=== PATIENT | female | born 1960 | race Caucasian/White ===

== ENCOUNTER → 2016-05-25 | Outpatient (REF) | payer BC ==
[~2016-05-25] MED LIST: ATOR1TAB21 PO; BUSP15TA47 PO; BUSP30TA PO; IBUP-1114 PO; IPRA2IN NEB; LEVA12INH NEB; LEVO88TA3 PO; PERC5TAB6 PO; PRED20TAB PO; PRIL20CA9 PO; SERT50TA PO; TRAZ100T4 PO; [UNRECOGNIZED DRUG - CODE] PO
== END ==
LOC: M LAB REF 21:00
PROVIDERS: ATTEND Nurse Practitioner Family
DX: N76.0 Acute vaginitis (principal)

== ENCOUNTER 2016-06-04 08:57 | Emergency (ER) | payer BC ==
[~2016-06-04] VITALS: Ht 157.5 cm; Wt 85.7 kg
[2016-06-04] MEDS ORDERED: OMEP10CASR PO (09:09)
[2016-06-04] MEDS ORDERED: CEPH500C (09:09)
[2016-06-04] MEDS ORDERED: SERT-138 (09:09)
[2016-06-04] MEDS ORDERED: BUSP10TA (09:09)
[2016-06-04] MEDS ORDERED: ALBU17IN (09:09)
[2016-06-04] MEDS ORDERED: NS 1,000 ML IV ONE (10:00)
[2016-06-04] MEDS ORDERED: ONDANSETRON 4MG/2ML VIAL (J2405) IV ONE ×2 (10:00→11:15)
[2016-06-04] MEDS ORDERED: KETOROLAC 30 MG/ML VIAL (J1885) IV ONE (10:00)
[2016-06-04 10:11] LABS: CALCIUM OXALATE CRYSTALS SMALL
[2016-06-04 10:34] LABS: MEAN CORPUSCULAR HEMOGLOBIN 31.2 pg (27.0-33.0); MEAN CORPUSCULAR HGB CONC 33.3 g/dl (32.0-36.5); MEAN CORPUSCULAR VOLUME 93.6 fl (80.0-96.0); RED CELL DISTRIBUTION WIDTH 12.6 % (11.5-14.5)
[2016-06-04 10:58] LABS: ALBUMIN 3.8 GM/DL (3.2-5.2); ALBUMIN/GLOBULIN RATIO 1.15 (1.00-1.93); ALKALINE PHOSPHATASE 87 U/L (45-117); ALT/SGPT 22 U/L (12-78); ANION GAP 6 MEQ/L (8-16); AST/SGOT 16 U/L (15-37); BILIRUBIN,TOTAL 0.2 MG/DL (0.2-1.0); BLOOD UREA NITROGEN 9 MG/DL (7-18); CALCIUM LEVEL 8.7 MG/DL (8.5-10.1); CARBON DIOXIDE LEVEL 28 MEQ/L (21-32); CHLORIDE LEVEL 109 MEQ/L (98-107); CREATININE FOR GFR 0.82 MG/DL (0.55-1.02); GLOMERULAR FILTRATION RATE > 60.0 (>51); GLUCOSE, FASTING 97 MG/DL (70-105); SODIUM LEVEL 143 MEQ/L (136-145); TOTAL PROTEIN 7.1 GM/DL (6.4-8.2)
--- NOTE | 2016-06-04 11:03 | REP ---
CT ABDOMEN AND PELVIS WITHOUT CONTRAST: CT of the abdomen and pelvis performed without oral or IV contrast. Sagittal and coronal reconstruction images are performed. Mild chronic fibrotic changes are seen in the lung bases. The liver, spleen, adrenals, pancreas, and kidneys appear grossly unremarkable. There is no hydroureteronephrosis and no evidence of nephrolithiasis. The patient has had a cholecystectomy. The abdominal aorta is normal in caliber with mild atherosclerotic calcification. There is no adenopathy. There is no free air or free fluid. There is mild central hazy opacity in the mesentery most consistent with mild sclerosis mesenteritis. There is no bowel thickening. There is no evidence of appendicitis. There is no pelvic mass. 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 No appendicitis. No nephrolithiasis or hydronephrosis. Status post cholecystectomy. No free air or free fluid. Signed by Sigifredo Currie MD 06/04/2016 04:37 P
[2016-06-04] MEDS ORDERED: MORPHINE 4 MG/ML 1ML SYRINGE IV ONE (11:15)
[2016-06-04] MEDS ORDERED: DICYCLOMINE 10 MG CAP PO ONE (12:30)
[2016-06-04] MEDS ORDERED: PERCOCET 5MG/325MG TAB PO ONE (12:30)
[2016-06-04] MEDS ORDERED: ZOFR4TAB3 PO (12:37)
[2016-06-04] MEDS ORDERED: PERC5TAB6 PO (12:37)
[2016-06-04] MEDS ORDERED: BENT10CA PO (12:38)
[2016-06-04] MEDS ORDERED: ONDANSETRON 4 MG ORAL DISINTEGRATING TAB (S0181) PO ONE (12:45)
[2016-06-04 13:00] VITALS: BP 133/79
== END 2016-06-04 13:07 | disposition home or self-care (01) ==
LOC: M ED 09:58
DX: R10.84 Generalized abdominal pain (principal); K65.4 Sclerosing mesenteritis; R11.2 Nausea with vomiting, unspecified; R10.2 Pelvic and perineal pain; F17.200 Nicotine dependence, unspecified, uncomplicated; Z79.899 Other long term (current) drug therapy
CPT/HCPCS: 36415; 74176; 80053; 81001; 83690; 85027; 87086; 96374; 96375; 96376; 99283; J1885; J2405

== ENCOUNTER → 2017-04-10 | Outpatient (CLI) | payer BC ==
[~2017-04-10] MED LIST changes: -ATOR1TAB21 PO; -BUSP15TA47 PO; -BUSP30TA PO; +CONRAY-43 43% 50ML VIAL (Q9960) As Ordered; -IBUP-1114 PO; -IPRA2IN NEB; -LEVA12INH NEB; -LEVO88TA3 PO; -PERC5TAB6 PO; -PRED20TAB PO; -PRIL20CA9 PO; +PROHANCE 279.3MG/ML 5ML VIAL (A9576) As Ordered; -SERT50TA PO; -TRAZ100T4 PO; -[UNRECOGNIZED DRUG - CODE] PO
== END ==
LOC: M RADPRO 08:06
DX: M25.551 Pain in right hip (principal); M16.10 Unilateral primary osteoarthritis, unspecified hip; M94.251 Chondromalacia, right hip; M25.451 Effusion, right hip
CPT/HCPCS: 27093

== ENCOUNTER → 2017-05-08 | Outpatient (CLI) | payer BC ==
[2017-05-08 12:42] LABS: HEMATOCRIT 39.2 % (36.0-47.0); HEMOGLOBIN 12.8 g/dl (12.0-16.0); MEAN CORPUSCULAR HEMOGLOBIN 29.6 pg (27.0-33.0); MEAN CORPUSCULAR HGB CONC 32.7 g/dl (32.0-36.5); MEAN CORPUSCULAR VOLUME 90.7 fl (80.0-96.0); PLATELET COUNT, AUTOMATED 358 10^3/uL (150-450); RED BLOOD COUNT 4.32 10^6/uL (4.00-5.40); RED CELL DISTRIBUTION WIDTH 12.4 % (11.5-14.5); WHITE BLOOD COUNT 5.9 10^3/uL (4.0-10.0)
[2017-05-08 13:08] LABS: TOTAL 25(OH) VITAMIN D 89.2 NG/ML (30.0-100.0)
[2017-05-08 14:06] LABS: ALBUMIN 3.9 GM/DL (3.2-5.2); ALBUMIN/GLOBULIN RATIO 1.18 (1.00-1.93); ALKALINE PHOSPHATASE 110 U/L (45-117); ALT/SGPT 20 U/L (12-78); ANION GAP 8 MEQ/L (8-16); AST/SGOT 11 U/L (7-37); BILIRUBIN,TOTAL 0.3 MG/DL (0.2-1.0); BLOOD UREA NITROGEN 7 MG/DL (7-18); CALCIUM LEVEL 9.2 MG/DL (8.5-10.1); CARBON DIOXIDE LEVEL 26 MEQ/L (21-32); CHLORIDE LEVEL 109 MEQ/L (98-107); CREATININE FOR GFR 0.85 MG/DL (0.55-1.30); GLOMERULAR FILTRATION RATE > 60.0 (>51); GLUCOSE, FASTING 73 MG/DL (70-100); POTASSIUM SERUM 4.1 MEQ/L (3.5-5.1); SODIUM LEVEL 143 MEQ/L (136-145); TOTAL PROTEIN 7.2 GM/DL (6.4-8.2)
== END ==
LOC: M LAB 12:07
DX: F33.9 Major depressive disorder, recurrent, unspecified (principal)
CPT/HCPCS: 80053

== ENCOUNTER → 2018-01-14 | Outpatient (CLI) | payer BC | LOC: M RAD 15:02 | DX: S86.112D Strain of other muscle(s) and tendon(s) of posterior muscle group at lower leg level, left leg, subsequent encounter (principal); X58.XXXD Exposure to other specified factors, subsequent encounter; Y92.9 Unspecified place or not applicable; M71.22 Synovial cyst of popliteal space [Baker], left knee | CPT/HCPCS: 73718 ==

== ENCOUNTER → 2018-07-17 | Outpatient (REF) | payer BC ==
[~2018-07-17] MED LIST changes: +ALBU17IN; +ATOR1TAB21 PO; +BENT10CA PO; +BUSP10TA; +BUSP15TA47 PO; +BUSP30TA PO; +CEPH500C; -CONRAY-43 43% 50ML VIAL (Q9960) As Ordered; +IBUP-1114 PO; +IPRA2IN NEB; +LEVA12INH NEB; +LEVO88TA3 PO; +OMEP10CASR PO; +PERC5TAB12 PO; +PRED20TAB PO; +PRIL20CA9 PO; -PROHANCE 279.3MG/ML 5ML VIAL (A9576) As Ordered; +SERT-138; +SERT-141 PO; +TRAZ-163 PO; +ZOFR4TAB14 PO; +[UNRECOGNIZED DRUG - CODE] PO
[2018-07-17 16:45] LABS: HEMATOCRIT 40.6 % (36.0-47.0); HEMOGLOBIN 13.2 g/dl (12.0-15.5); MEAN CORPUSCULAR HGB CONC 32.5 g/dl (32.0-36.5); MEAN CORPUSCULAR VOLUME 98.5 fl (80.0-96.0); PLATELET COUNT, AUTOMATED 292 10^3/uL (150-450); RED BLOOD COUNT 4.12 10^6/uL (4.00-5.40); WHITE BLOOD COUNT 5.1 10^3/uL (4.0-10.0)
[2018-07-17 17:42] LABS: ALBUMIN 3.7 GM/DL (3.2-5.2); BILIRUBIN,TOTAL 0.4 MG/DL (0.2-1.0); CALCIUM LEVEL 8.7 MG/DL (8.5-10.1); CHOLESTEROL RISK RATIO 4.952 (<5); CREATININE FOR GFR 1.28 MG/DL (0.55-1.30); GLOMERULAR FILTRATION RATE 45.8 (>51); POTASSIUM SERUM 4.4 MEQ/L (3.5-5.1); TOTAL PROTEIN 7.5 GM/DL (6.4-8.2)
[2018-07-17 18:38] LABS: HEMOGLOBIN A1c 5.6 %
== END ==
LOC: M LABDRAW1 16:19
PROVIDERS: ATTEND Nurse Practitioner Psychiatric/Mental Health
DX: Z79.899 Other long term (current) drug therapy (principal)

== ENCOUNTER → 2018-10-01 | Outpatient (REF) | payer BC ==
[2018-10-01 16:08] LABS: HEMATOCRIT 39.5 % (36.0-47.0); HEMOGLOBIN 12.9 g/dl (12.0-15.5); MEAN CORPUSCULAR HEMOGLOBIN 31.3 pg (27.0-33.0); MEAN CORPUSCULAR HGB CONC 32.7 g/dl (32.0-36.5); MEAN CORPUSCULAR VOLUME 95.9 fl (80.0-96.0); PLATELET COUNT, AUTOMATED 291 10^3/uL (150-450); RED BLOOD COUNT 4.12 10^6/uL (4.00-5.40); WHITE BLOOD COUNT 4.7 10^3/uL (4.0-10.0)
[2018-10-01 16:09] LABS: C REACTIVE PROTEIN QUANTITATIV 0.38 MG/DL (0.00-0.30); URIC ACID 5.8 MG/DL (2.6-6.0)
[2018-10-01 19:52] LABS: ERYTHROCYTE SEDIMENTATION RATE 11 mm/hr (0-30)
[2018-10-09 00:12] LABS: DEOXYCORTICOSTERONE LEVEL 2.4 ng/dL (.); HLA-B27 Negative (.); Lyme Disease IgG/IgM Antibodie <0.91 ISR (0.00-0.90); Lyme Disease IgM Ab Quantitati <0.80 index (0.00-0.79)
== END ==
LOC: M LABDRAW1 13:31
PROVIDERS: ATTEND Physician Assistant
DX: M47.817 Spondylosis without myelopathy or radiculopathy, lumbosacral region (principal)

== ENCOUNTER → 2018-12-04 | Outpatient (REF) | payer BC ==
[2018-12-04 17:19] LABS: SOURCE, BODY FLUID LFT KNEE; SYNOVIAL FLUID COLOR ORANGE (YELLOW)
[2018-12-04 17:20] LABS: CRYSTALS, BODY FLUID NONE SEEN (NONE SEEN); SOURCE, BODY FLUID CRYSTALS LFT KNEE
[2018-12-04 17:48] LABS: MUCIN CLOT TEST 4+ (4+)
[2018-12-04 17:55] LABS: SOURCE, BODY FLUID GLUCOSE LFT KNEE; SOURCE, BODY FLUID URIC ACID LFT KNEE; URIC ACID, BODY FLUID 3.9 MG/DL (NOT ESTABLISHED)
[2018-12-08 10:41] LABS: BODY FLUID RHEUMATOID SCREEN NEGATIVE (NEGATIVE)
== END ==
LOC: M LAB REF 15:16
PROVIDERS: ATTEND Physician Assistant
DX: M25.462 Effusion, left knee (principal)

== ENCOUNTER → 2019-04-26 | Outpatient (CLI) | payer BC ==
[~2019-04-26] MED LIST changes: -TRAZ-163 PO; +TRAZ-257 PO
--- NOTE | 2019-04-26 15:05 | REP ---
PA and lateral chest: Comparison is 03/23/2015. The lung leonard are clear. The cardiac size is normal. The lorraine, mediastinum, and skeletal structures are unremarkable. Impression: Negative PA and lateral chest. There is no interval change. Electronically Signed by Sigifredo Mejía MD 04/26/2019 02:57 P
--- NOTE | 2019-04-26 15:28 | REP ---
Right knee five views: There are no comparisons. There is medial compartment osteoarthritis. The lateral patellofemoral compartments are unremarkable. Mineralization is normal. There is no effusion. There are no calcifications. Impression: Medial compartment osteoarthritis. Left knee five views: There is medial compartment osteoarthritis. The lateral patellofemoral compartments are unremarkable. Mineralization is normal. There is no effusion. There are no calcifications. Impression: Medial compartment osteoarthritis. Electronically Signed by Sigifredo Mejía MD 04/26/2019 03:20 P
== END ==
LOC: M RAD 13:04
PROVIDERS: ATTEND Internal Medicine
DX: M17.0 Bilateral primary osteoarthritis of knee (principal); R59.0 Localized enlarged lymph nodes

== ENCOUNTER → 2019-04-26 | Outpatient (REF) | payer BC ==
[2019-04-26 17:48] LABS: C REACTIVE PROTEIN QUANTITATIV 0.37 MG/DL (0.00-0.30); RHEUMATOID FACTOR QUANT < 10.0 IU/ML (<15.0); URIC ACID 5.3 MG/DL (2.6-6.0)
== END ==
LOC: M SFHCRHEU 12:23
PROVIDERS: ATTEND Internal Medicine
DX: M25.50 Pain in unspecified joint (principal)

== ENCOUNTER → 2020-09-02 | Outpatient (CLI) | payer BC ==
[~2020-09-02] MED LIST changes: +BUDE10.2; +BUSP30TA; +FLUO40CA; +FLUO60TA6; +FLUT1BLS5; +LEVO75TA4; +OMEP10CA78
== END ==
LOC: M LABSMTC 11:04
PROVIDERS: ATTEND Anesthesiology
DX: Z20.828 Contact with and (suspected) exposure to other viral communicable diseases (principal); Z11.59 Encounter for screening for other viral diseases

== ENCOUNTER 2020-09-07 08:56 | Day surgery (SDC) | payer BC ==
[~2020-09-07] VITALS: Ht 152.4 cm; Wt 86.2 kg
--- NOTE | 2020-09-07 10:46 | ROOR ---
Patient Name: Paige Martinez Procedure Date: 09/07/2020 10:22 AM Date of : 1960 Age: 60 Room: [facility] Gender: Female Note Status: Finalized Procedure: Colonoscopy Indications: High risk colon cancer surveillance: Personal history of colonic polyps Providers: Gilson Guallpa MD Referring MD: Janneth MCCRARY NP Requesting Provider: Medicines: Monitored Anesthesia Care Complications: No immediate complications. Procedure: Pre-Anesthesia Assessment: - The heart rate, respiratory rate, oxygen saturations, blood pressure, adequacy of pulmonary ventilation, and response to care were monitored throughout the procedure. The Colonoscope was introduced through the anus and advanced to the terminal ileum, with identification of the appendiceal orifice and IC valve. The colonoscopy was performed without difficulty. The patient tolerated the procedure well. The quality of the bowel preparation was good. Findings: The perianal and digital rectal examinations were normal. Small Internal Hemorrhoids. The entire examined colon appeared normal on direct and retroflexion views. Impression: - Small Internal Hemorrhoids. - The entire examined colon is normal on direct and retroflexion views. - No specimens collected. Recommendation: - Repeat colonoscopy in 5 years for surveillance. Procedure Code(s): --- Professional --- 37521, Colonoscopy, flexible; diagnostic, including collection of specimen(s) by brushing or washing, when performed (separate procedure) Diagnosis Code(s): --- Professional --- Z86.010, Personal history of colonic polyps CPT copyright 2019 [employer]. All rights reserved. The codes documented in this report are preliminary and upon outpatient coder review may be revised to meet current compliance requirements. Gilson Guallpa MD Gilson Guallpa MD 09/07/2020 10:46:17 AM Electronically signed by Gilson Guallpa MD Number of Addenda: 0 Note Initiated On: 09/07/2020 10:22 AM Estimated Blood Loss: Estimated blood loss: none.
[2020-09-07] MEDS ORDERED: LIDOCAINE 2% 100MG/5ML SDV (FOR ANES.) As Ordered ONE (10:55)
[2020-09-07] MEDS ORDERED: propofoL 200 MG/20 ML VIAL As Ordered ONE (10:55)
[2020-09-07 11:05] VITALS: BP 129/78
== END 2020-09-07 11:12 | disposition home or self-care (01) ==
LOC: M OPP 08:56
PROVIDERS: ATTEND Internal Medicine Gastroenterology
DX: Z12.11 Encounter for screening for malignant neoplasm of colon (principal); Z86.010 Personal history of colon polyps; K64.8 Other hemorrhoids; Z79.82 Long term (current) use of aspirin; Z79.899 Other long term (current) drug therapy; Z91.030 Bee allergy status; Z80.41 Family history of malignant neoplasm of ovary; Z80.1 Family history of malignant neoplasm of trachea, bronchus and lung; Z80.3 Family history of malignant neoplasm of breast; Z80.8 Family history of malignant neoplasm of other organs or systems; Z87.891 Personal history of nicotine dependence

== ENCOUNTER 2020-12-26 16:14 | Emergency (ER) | payer BC ==
[~2020-12-26] VITALS: Ht 157.5 cm; Wt 88.3 kg
--- OUTSIDE RECORDS SUMMARY | 2020-12-26 16:22 | CCD ---
Author Author [facility] Organization [facility] Address Unknown Phone Unavailable Care Team Providers Care Vice President Risk Management Name Role Phone Janneth eLster Unavailable PROBLEMS Type Condition ICD9-CM Code [id number] Code Onset Dates Condition S tatus W/U Status Risk SNOMED Code Notes Problem Hyperlipidemia E78.5 Active confirmed 09598 004 Problem Hypothyroid E03.9 Active confirmed 21193787 Problem DDD (degenerative disc disease), lumbosacral M51.3 7 Active confirmed 55139112 Problem Vitamin D deficiency E55.9 Active confirmed 23815020 Problem DOMENIC (obstructive sleep apnea) G47.33 Active confirm ed 63891395 Problem Other chronic pain G89.29 Active confirmed 8 3407347 Problem Chronic obstructive pulmonary disease, unspecified COPD ty pe J44.9 Active confirmed 42022616 Problem Arthritis M19.90 Active confirmed 2459164 Problem Female bladder prolapse N81.10 Active confirmed 146151076 Problem BMI 37.0-37.9, adult Z68.37 Active confirmed 276301466 Problem Adjustment disorder with depressed mood F43.21 Active confirmed 06006849 Problem Acute right-sided low back pain with right-sided sciatica M54.41 Active confirmed 658165439 Problem Atrophic vaginitis N95.2 Active confirmed 5 6447386 Problem Sciatica, unspecified laterality M54.30 Active conf irmed 42516530 Problem Moderate episode of recurrent major depressive disorder F33.1 Active confirmed 340561132 Problem Smoking greater than 30 pack years F17.210 Activ e confirmed 71621521 Problem Obesity (BMI 30-39.9) E66.9 Active confirmed 804402456 ALLERGIES Allergen (clinical drug ingredient) Drug/Non Drug Allergy do cumented on EMR Reaction Allergy Type Onset Date Status hornets swelling Non Drug Allergy Active ENCOUNTERS from 1960 to 2020-12-04 Encounter Location Date Provider Diagnosis [address] [address] Dec, Janneth Lester IMMUNIZATIONS Vaccine Route Administration Date Status INFLUENZA 3 YRS AND OLDER Preservative free Unknown Dec 13, 2017 Administered Pneumococcal Vaccine PNEUMO 23 IM Intramuscular Dec 02, 2014 Administered TDAP 7yrs + Vaccine - Boostrix IM Intramuscular Oct 18, 2019 Administered Influenza preservative free IM Intramuscular Jan 06, 2020 Adm inistered Influenza preservative free Unknown Dec 21, 2018 Admi nistered Pneumococcal Prevnar 13 IM Intramuscular Jan 10, 2016 Admini stered SOCIAL HISTORY Tobacco Use: Social History Observation Description Date Details (start date - stop date) Former Smoker Sex Assigned At : Social History Observation Description Sex Assigned At Unknown Alcohol Screen Question Answer Notes Did you have a drink containing alcohol in the past year? No Points 0 Interpretation Negative Tobacco Use/Smoking Question Answer Notes Are you a former smoker How long has it been since you last smoked? 5-10 years Sexual History Question Answer Notes Had sex in the past 12 months (vaginal, oral, or anal)? No REASON FOR REFERRAL No Information VITAL SIGNS No information MEDICATIONS Medication SIG (Take, Route, Frequency, Duration) Notes Start Da te End Date Status predniSONE 20 MG 2 tablet Orally Once a day for 5 day(s) 0 8 Nov, 2020 Active Omeprazole 10 MG 1 capsule 30 minutes before morning meal Orally Once a day for 90 day(s) Active Atorvastatin Calcium 20 MG 1 tablet Orally Once a day for 90 Active Symbicort 160-4.5 MCG/ACT 2 puffs Inhalation Twice a day for 90 days Active FLUoxetine HCl 60 MG 1 tablet Orally Once a day for 30 days May, Active physical therapy eval and tx - - - -3x per week for -6 weeks Nov, Active CPAP machine and supplies G47.33 autopap with humidifi cation 5mmg-20mmhg externally Daily for 99 days Act serge Aspir-Low 81 MG 1 tablet Orally Once a day for 30 day(s) Active traZODone HCl 150 MG 1 tablet at bedtime Orally Once a day for 3 0 days Apr, Active Montelukast Sodium 10 MG 1 tablet Orally Once a day for 30 day(s ) Nov, Active Ventolin HFA 108 (90 Base) MCG/ACT 2 puffs as needed I nhalation every 6 hrs prn for 90 days prn Not-Taking busPIRone HCl 30 MG 1 tablet Orally Twice a day for 30 days Apr, Active tiZANidine HCl 2 MG 1 tablet as needed Orally Three times a day for 7 days Nov, Active Levothyroxine Sodium 75 MCG 1 tablet on an empty stoma ch in the morning Orally Once a day for 90 days Active PROCEDURES No Information RESULTS No Results REASON FOR VISIT refill MEDICAL (GENERAL) HISTORY Type Description Date Medical History Depression Medical History Hypothyroid Medical History GERD Medical History Anxiety- f/u Psychiatrist at [facility] Medical History Bunion- f/u Podiatry Dr. Cuevas Medical History Normal stress test 10/[address] Nir de paz Medical History COPD Medical History 12/02/14: Pneumonia vaccine Medical History Mukherjee''s Cyst- L knee Medical History Atrophic Vaginitis Medical History Cystocele Medical History Osteoarthritis Medical History DDD Medical History Chronic obstructive pulmonary disease, u nspecified COPD type Medical History Bladder Prolapse Surgical History Tubaligation Surgical History Ex lap Surgical History Bladder reconstruction Surgical History Cholecystectomy Surgical History Colonoscopy (hemorrhoids) 2011 Surgical History Bunionectomy 11/2014 Hospitalization History Surgical needs Goals Section No Information Health Concerns No Information MEDICAL EQUIPMENT No Information MENTAL STATUS No Information FUNCTIONAL STATUS No Information ASSESSMENTS No Information PLAN OF TREATMENT Medication Medication Name Sig Start Date Stop Date FLUoxetine HCl 60 MG 1 tablet Orally Once a day for 30 days 03 M 2020 busPIRone HCl 30 MG 1 tablet Orally Twice a day for 30 days 2019 Levothyroxine Sodium 75 MCG 1 tablet on an empty stoma ch in the morning Orally Once a day for 90 days traZODone HCl 150 MG 1 tablet at bedtime Orally Once a day f or 30 days Apr, Next Appt Details Provider Name:Cherelle Martinez, 2021-01-15 0 1:00:00 PM, [address] [place] [address], [id number], Provider Name:Fortino Zhou, 2021-11-14 08:30:00 AM, [address] [place], [address], Insurance Providers Payer Name Payer Address Payer Phone Insured Name Patient Relati onship to Insured Coverage Start Date Coverage End Date BCBS OUT OF STATE [address] [address] [facility] [id number] Paige Martinez self
--- OUTSIDE RECORDS SUMMARY | 2020-12-26 16:23 | CCD ---
Author Author [facility] Organization [facility] Address Unknown Phone Unavailable Care Team Providers Care Clinical Review Specialist Name Role Phone Janneth Lester Unavailable PROBLEMS Type Condition ICD9-CM Code GEE20-VQ Code Onset Dates Condition S tatus W/U Status Risk SNOMED Code Notes Problem Hyperlipidemia E78.5 Active confirmed 94968 004 Problem Hypothyroid E03.9 Active confirmed 40696590 Problem DDD (degenerative disc disease), lumbosacral M51.3 7 Active confirmed 37402825 Problem Vitamin D deficiency E55.9 Active confirmed 00422200 Problem DOMENIC (obstructive sleep apnea) G47.33 Active confirm ed 26568133 Problem Other chronic pain G89.29 Active confirmed 8 9495022 Problem Chronic obstructive pulmonary disease, unspecified COPD ty pe J44.9 Active confirmed 37311765 Problem Arthritis M19.90 Active confirmed 0313375 Problem Female bladder prolapse N81.10 Active confirmed 857362512 Problem BMI 37.0-37.9, adult Z68.37 Active confirmed 933233128 Problem Adjustment disorder with depressed mood F43.21 Active confirmed 85625497 Problem Acute right-sided low back pain with right-sided sciatica M54.41 Active confirmed 587721343 Problem Atrophic vaginitis N95.2 Active confirmed 5 1778396 Problem Sciatica, unspecified laterality M54.30 Active conf irmed 46436574 Problem Moderate episode of recurrent major depressive disorder F33.1 Active confirmed 031404603 Problem Smoking greater than 30 pack years F17.210 Activ e confirmed 74533409 Problem Obesity (BMI 30-39.9) E66.9 Active confirmed 887406968 ALLERGIES Allergen (clinical drug ingredient) Drug/Non Drug Allergy do cumented on EMR Reaction Allergy Type Onset Date Status hornets swelling Non Drug Allergy Active ENCOUNTERS from 1960 to 2020-11-13 Encounter [place] [address] 08 Nov, 2020 Janneth Lester Acute right-sided low back pain with rig ht-sided sciatica M54.41 IMMUNIZATIONS Vaccine Route Administration Date Status Influenza preservative free IM Intramuscular Jan 06, 2020 Adm inistered TDAP 7yrs + Vaccine - Boostrix IM Intramuscular Oct 18, 2019 Administered Pneumococcal Vaccine PNEUMO 23 IM Intramuscular Dec 02, 2014 Administered INFLUENZA 3 YRS AND OLDER Preservative free Unknown Dec 13, 2017 Administered Influenza preservative free Unknown Dec 21, 2018 [...] REASON FOR REFERRAL No Information VITAL SIGNS Height 60.0 in Nov, Weight 187.8 lbs Nov, BMI 36.67 kg/m2 Nov, Heart Rate 64 /min Nov, Respiratory Rate 16 /min Nov, Oximetry 96 % Nov, Blood pressure systolic 102 mmHg Nov, Blood pressure diastolic 60 mmHg Nov, MEDICATIONS Medication SIG (Take, Route, Frequency, Duration) Notes Start Da te End Date Status Omeprazole 10 MG 1 capsule 30 minutes before morning meal Orally Once a day for 90 day(s) Active Symbicort 160-4.5 MCG/ACT 2 puffs Inhalation Twice a day for 90 days Active Ventolin HFA 108 (90 Base) MCG/ACT 2 puffs as needed I nhalation every 6 hrs prn for 90 days prn Not-Taking CPAP machine and supplies G47.33 autopap with humidifi cation 5mmg-20mmhg externally Daily for 99 days Act serge Aspir-Low 81 MG 1 tablet Orally Once a day for 30 day(s) Active traZODone HCl 150 MG 1 tablet at bedtime Orally Once a day for 3 0 days Apr, Active tiZANidine HCl 2 MG 1 tablet as needed Orally Three times a day for 7 days Nov, Active physical therapy eval and tx - - - -3x per week for -6 weeks Nov, Active FLUoxetine HCl 60 MG 1 tablet Orally Once a day for 30 days May, Active Levothyroxine Sodium 75 MCG 1 tablet on an empty stoma ch in the morning Orally Once a day for 90 days Active predniSONE 20 MG 2 tablet Orally Once a day for 5 day(s) 0 Nov, Active Montelukast Sodium 10 MG 1 tablet Orally Once a day for 30 day(s ) Nov, Active Atorvastatin Calcium 20 MG 1 tablet Orally Once a day for 90 Active busPIRone HCl 30 MG 1 tablet Orally Twice a day for 30 days Apr, Active PROCEDURES No Information RESULTS No Results REASON FOR VISIT sciatica MEDICAL (GENERAL) HISTORY Type Description Date Medical History Depression Medical History Hypothyroid Medical History GERD Medical History Anxiety- f/u Psychiatrist at [facility] Medical History Bunion- f/u Podiatry Dr. [...] No Information FUNCTIONAL STATUS No Information ASSESSMENTS Encounter Date Diagnosis Assessment Notes Treatment Notes Treatm ent Clinical Notes Nov, Acute right-sided low back p ain with right-sided sciatica (ICD-10 - M54.41) 1. Take prednisone in the AM with food 2. DO NOT TAKE ANTIINFLAMMATORIES WHILE ON PREDNISONE (motrin, aleve, ibuprofen, naproxen) 3. May take TYLENOL (ACETAMINOPHEN) Reviewed medication with patient including dose, administration, frequency and possible side effects. Reviewed warning s/s that warrant follow up with clinic v. when to seek ED evaluation. Consider supplemental modalities including Chiropractic, massage, pt, stretching at home, warm moist heat, ice, tens unit May use OTC medications as needed including Tylenol/Motrin/Aleve (do not take Motrin and Aleve together), topicals like capsacian cream, lidocaine, biofreeze, icyhot, ect Nov, Other All questions and concerns addressed, patient understanding and agreeable to plan. Patient encouraged to follow up at the clinic for any additional or new questions or concerns. Time spent includes face to face time with patient and review of any pertinent laboratory results, consult documentation/hospital notes and diagnostic imaging. Time spent: <29 mins Kris Lantigua, scribing the following service on behalf of Janneth Lester NP on 10-09-2020 PLAN OF TREATMENT Medication Medication Name Sig Start Date Stop Date tiZANidine HCl 2 MG 1 tablet as needed Orally Three times a day for 7 days Nov, physical therapy eval and tx - - - -3x per week for -6 weeks Nov, predniSONE 20 MG 2 tablet Orally Once a day for 5 day(s) Nov, Treatment Notes Assessment Notes Clinical Notes Acute right-sided low back pain with right-sided sciat ica 1. Take prednisone in the AM with food 2. DO NOT TAKE ANTIINFLAMMATORIES WHILE ON PREDNISONE (motrin, aleve, ibuprofen, naproxen) 3. May take TYLENOL (ACETAMINOPHEN)Reviewed medication with patient including dose, administration, frequency and possible side effects. Reviewed warning s/s that warrant follow up with clinic v. when to seek ED evaluation.Consider supplemental modalities including Chiropractic, massage, pt, stretching at home, warm moist heat, ice, tens unitMay use OTC medications as needed including Tylenol/Motrin/Aleve (do not take Motrin and Aleve together), topicals like capsacian cream, lidocaine, biofreeze, icyhot, ect Next Appt Details prn Reason: Provider Name:Cherelle Martinez, 2020-11-21 0 1:00:00 PM, [address] [place] [address], [id number], Provider Name:Fortino Zhou, 2021-11-14 08:30:00 AM, [address] [place] [address], [place], [address], Insurance Providers Payer Name Payer Address Payer Phone Insured Name Patient Relati onship to Insured Coverage Start Date Coverage End Date BCBS OUT OF STATE [address] [address] [facility] [id number] Paige Martinez self
--- OUTSIDE RECORDS SUMMARY | 2020-12-26 16:23 | CCD ---
Author Author [facility] Organization [facility] Address Unknown Phone Unavailable Care Team Providers Care Health Coach Name Role Phone Kathy Curran MD Unavailable Unavailable Kathy Curran MD Unavailable Unavailable Kathy Curran MD Unavailable Unavailable Kathy Curran MD Unavailable Unavailable Kathy Curran MD Unavailable Unavailable Kathy Curran MD Unavailable Unavailable Kathy Curran MD Unavailable Unavailable Kathy Curran MD Unavailable Unavailable Kathy Curran MD Unavailable Unavailable Kathy Curran MD Unavailable Unavailable Kathy Curran MD Unavailable Unavailable Kathy Curran MD Unavailable Unavailable Kathy Curran MD Unavailable Unavailable Kathy Curran MD Unavailable Unavailable Kathy Curran MD Unavailable Unavailable Kathy Curran MD Unavailable Unavailable Kathy Curran MD Unavailable Unavailable Kathy Curran MD Unavailable Unavailable Kathy Curran MD Unavailable Unavailable Kathy Curran MD Unavailable Unavailable Dombek-Lang, Kathy Chavez MD Unavailable Unavailable Dombek-Lang, Kathy Chavez MD Unavailable Unavailable Dombek-Lang, Kathy Chavez MD Unavailable Unavailable Dombek-Lang, Kathy WintersKathy MD Unavailable Unavailable Dombek-Lang, Kathy WintersKathy MD Unavailable Unavailable Dombek-Lang, Kathy Chavez MD Unavailable Unavailable Dombek-Lang, Kathy Chavez MD Unavailable Unavailable Dombek-Lang, Kathy WintersKathy MD Unavailable Unavailable Dombek-Lang, Kathy Chavez MD Unavailable Unavailable Dombek-Lang, Kathy WintersKathy MD Unavailable Unavailable Dombek-Lang, Kathy Chavez MD Unavailable Unavailable Dombek-Lang, Kathy Chavez MD Unavailable Unavailable Dombek-Lang, Kathy Chavez MD Unavailable Unavailable Dombek-Lang, Kathy Chavez MD Unavailable Unavailable Dombek-Lang, Kathy Chavez MD Unavailable Unavailable Dombek-Lang, Kathy Chavez MD Unavailable Unavailable Dombek-Lang, Kathy Chavez MD Unavailable Unavailable Dombek-Lang, Kathy Chavez MD Unavailable Unavailable Dombek-Lang, Kathy Chavez MD Unavailable Unavailable Bryan, L Annabel JACK WINDER Unavailable Unavailable Bryan, L Annabel JACK WINDER Unavailable Unavailable Yan, L Annabel JACK WINDER Unavailable Unavailable Bryan, L Annabel JACK WINDER Unavailable Unavailable Bryan, L Annabel JACK WINDER Unavailable Unavailable Bryan, L Annabel JACK WINDER Unavailable Unavailable Yan, L Annabel JACK WINDER Unavailable Unavailable Yan, L Annabel JACK WINDER Unavailable Unavailable Bryan, L Annabel JACK WINDER Unavailable Unavailable Yan, L Annabel JACK WINDER Unavailable Unavailable Yan, L Annabel JACK WINDER Unavailable Unavailable Yan, L Annabel JACK WINDER Unavailable Unavailable Yan, L Annabel JACK WINDER Unavailable Unavailable Bryan, L Annabel JACK WINDER Unavailable Unavailable Yan, L Annabel JACK WINDER Unavailable Unavailable Yan, L Annabel JACK WINDER Unavailable Unavailable Bryan, L Annabel JACK WINDER Unavailable Unavailable Bryan, L Annabel JACK WINDER Unavailable Unavailable Yan, L Annabel JACK WINDER Unavailable Unavailable Yan, L Annabel JACK WINDER Unavailable Unavailable Bryan, L Annabel JACK WINDER Unavailable Unavailable Bryan, L Annabel JACK WINDER Unavailable Unavailable Bryan, L Annabel JACK WINDER Unavailable Unavailable Yan, L Annabel JACK WINDER Unavailable Unavailable Bryan, L Annabel JACK WINDER Unavailable Unavailable Yan, L Annabel JACK WINDER Unavailable Unavailable Yan, L Annabel JACK WINDER Unavailable Unavailable Yan, L Annabel JACK WINDER Unavailable Unavailable Bryan, L Annabel JACK WINDER Unavailable Unavailable Yan, L Annabel JACK WINDER Unavailable Unavailable Yan, L Annabel JACK WINDER Unavailable Unavailable Bryan, L Annabel JACK WINDER Unavailable Unavailable Bryan, L Annabel JACK WINDER Unavailable Unavailable Yan, L Annabel JACK WINDER Unavailable Unavailable Yan, L Annabel JACK WINDER Unavailable Unavailable Bryan, L Annabel JACK WINDER Unavailable Unavailable Yan, L Annabel JACK WINDER Unavailable Unavailable Yan, L Annabel JACK WINDER Unavailable Unavailable Yan, L Annabel JACK WINDER Unavailable Unavailable PETROFF, RUSSELL PA Unavailable Unavailable PETROFF, RUSSELL PA Unavailable Unavailable PETROFF, RUSSELL PA Unavailable Unavailable PETROFF, RUSSELL PA Unavailable Unavailable PETROFF, RUSSELL PA Unavailable Unavailable PETROFF, RUSSELL PA Unavailable Unavailable PETROFF, RUSSELL PA Unavailable Unavailable PETROFF, RUSSELL PA Unavailable Unavailable SALVADORBreanna HOWARD DO Unavailable Unavailable SALVADOR, Breanna DAY DO Unavailable Unavailable SALVADOR, Breanna DAY DO Unavailable Unavailable SALVADORBreanna HOWARD DO Unavailable Unavailable SALVADORBreanna HOWARD DO Unavailable Unavailable SALVADORBreanna HOWARD DO Unavailable Unavailable SALVADORBreanna HOWARD DO Unavailable Unavailable SALVADOR, Breanna DAY DO Unavailable Unavailable SALVADOR, Breanna DAY DO Unavailable Unavailable SALVADOR, Breanna DAY DO Unavailable Unavailable SALVADOR, Breanna DAY DO Unavailable Unavailable SALVADOR, Breanna DAY DO Unavailable Unavailable SALVADOR, Breanna DAY DO Unavailable Unavailable SALVADOR, Breanna DAY DO Unavailable Unavailable SALVADOR, Breanna DAY DO Unavailable Unavailable SALVADOR, Breanna DAY DO Unavailable Unavailable SALVADOR, Breanna DAY DO Unavailable Unavailable SALVADORBreanna HOWARD DO Unavailable Unavailable SALVADORBreanna HOWARD DO Unavailable Unavailable SALVADORBreanna HOWARD DO Unavailable Unavailable SALVADOR, Breanna DAY DO Unavailable Unavailable SALVADOR, Breanna DAY DO Unavailable Unavailable SALVADOR, Breanna DAY DO Unavailable Unavailable SALVADORBreanna HOWARD DO Unavailable Unavailable SALVADORBreanna HOWARD DO Unavailable Unavailable Kaila AMARAL DPM Unavailable Unavailable Kaila AMARAL DPM Unavailable Unavailable Kaila AMARAL DPM Unavailable Unavailable Kaila AMARAL DPM Unavailable Unavailable Kaila AMARAL DPM Unavailable Unavailable Kaila AMARAL DPM Unavailable Unavailable Kaila AMARAL DPM Unavailable Unavailable Kaila AMARAL DPM Unavailable Unavailable Kaila AMARAL DPM Unavailable Unavailable Kaila AMARAL DPM Unavailable Unavailable Kaila AMARAL DPM Unavailable Unavailable MAJAK, R BARB DPM Unavailable Unavailable MAJAK, R BARB DPM Unavailable Unavailable MAJAK, R BARB DPM Unavailable Unavailable MAJAK, R BARB DPM Unavailable Unavailable MAJAK, R BARB DPM Unavailable Unavailable MAJAK, R BARB DPM Unavailable Unavailable MAJAK, R BARB DPM Unavailable Unavailable MAJAK, R BARB DPM Unavailable Unavailable MAJAK, R BARB DPM Unavailable Unavailable MAJAK, R BARB DPM Unavailable Unavailable MAJAK, R BARB DPM Unavailable Unavailable MAJAK, R BARB DPM Unavailable Unavailable MAJAK, R BARB DPM Unavailable Unavailable MAJAK, R BARB DPM Unavailable Unavailable MAJAK, R BARB DPM Unavailable Unavailable MAJAK, R BARB DPM Unavailable Unavailable MAJAK, R BARB DPM Unavailable Unavailable MAJAK, R BARB DPM Unavailable Unavailable MAJAK, R BARB DPM Unavailable Unavailable MAJAK, R BARB DPM Unavailable Unavailable HUERTA SR, TISH LEONE MD Unavailable Unavailable HUERTA SR, TISH LEONE MD Unavailable Unavailable HUERTA SR, TISH LEONE MD Unavailable Unavailable HUERTA SR, TISH LEONE MD Unavailable Unavailable HUERTA SR, TISH LEONE MD Unavailable Unavailable HUERTA SR, TISH LEONE MD Unavailable Unavailable HUERTA SR, TISH LEONE MD Unavailable Unavailable HUERTA SR, TISH LEONE MD Unavailable Unavailable HUERTA SR, TISH LEONE MD Unavailable Unavailable HUERTA SR, TISH LEONE MD Unavailable Unavailable HUERTA SR, TISH LEONE MD Unavailable Unavailable HUERTA SR, TISH LEONE MD Unavailable Unavailable HUERTA SR, TISH LEONE MD Unavailable Unavailable HUERTA SR, TISH LEONE MD Unavailable Unavailable HUERTA SR, TISH LEONE MD Unavailable Unavailable HUERTA SR, TISH LEONE MD Unavailable Unavailable HUERTA SR, TISH LEONE MD Unavailable Unavailable HUERTA SR, TISH LEONE MD Unavailable Unavailable HUERTA SR, TISH LEONE MD Unavailable Unavailable HUERTA SR, TISH LEONE MD Unavailable Unavailable HUERTA SR, TISH LEONE MD Unavailable Unavailable HUERTA SR, TISH LEONE MD Unavailable Unavailable HUERTA SR, TISH LEONE MD Unavailable Unavailable HUERTA SR, TISH LEONE MD Unavailable Unavailable HUERTA SR, TISH LEONE MD Unavailable Unavailable HUERTA SR, TISH LEONE MD Unavailable Unavailable HUERTA SR, TISH LEONE MD Unavailable Unavailable HUERTA SR, TISH LEONE MD Unavailable Unavailable HUERTA SR, TISH LEONE MD Unavailable Unavailable HUERTA SR, TISH LEONE MD Unavailable Unavailable HUERTA SR, TISH LEONE MD Unavailable Unavailable HUERTA SR, TISH LEONE MD Unavailable Unavailable HUERTA SR, TISH LEONE MD Unavailable Unavailable HUERTA SR, TISH LEONE MD Unavailable Unavailable HUERTA SR, TISH LEONE MD Unavailable Unavailable HUERTA SR, TISH LEONE MD Unavailable Unavailable HUERTA SR, TISH LEONE MD Unavailable Unavailable HUERTA SR, TISH LEONE MD Unavailable Unavailable HUERTA SR, TISH LEONE MD Unavailable Unavailable HUERTA SR, TISH LEONE MD Unavailable Unavailable HUERTA SR, TISH LEONE MD Unavailable Unavailable HUERTA SR, TISH LEONE MD Unavailable Unavailable HUERTA SR, TISH LENOE MD Unavailable Unavailable HUERTA SR, TISH LEONE MD Unavailable Unavailable HUERTA SR, TISH LEONE MD Unavailable Unavailable HUERTA SR, TISH LEONE MD Unavailable Unavailable HUERTA SR, TISH LEONE MD Unavailable Unavailable HUERTA SR, TISH LEONE MD Unavailable Unavailable HUERTA SR, TISH LEONE MD Unavailable Unavailable HUERTA SR, TISH LEONE MD Unavailable Unavailable HUERTA SR, TISH LEONE MD Unavailable Unavailable HUERTA SR, TISH LEONE MD Unavailable Unavailable HUERTA SR, TISH LEONE MD Unavailable Unavailable HUERTA SR, TISH LEONE MD Unavailable Unavailable HUERTA SR, TISH LEONE MD Unavailable Unavailable HUERTA SR, TISH LEONE MD Unavailable Unavailable SYMENOW, G CHRISTOPHER PA Unavailable Unavailable SYMENOW, G CHRISTOPHER PA Unavailable Unavailable SYMENOW, G CHRISTOPHER PA Unavailable Unavailable SYMENOW, G CHRISTOPHER PA Unavailable Unavailable SYMENOW, G CHRISTOPHER PA Unavailable Unavailable SYMENOW, G CHRISTOPHER PA Unavailable Unavailable SYMENOW, G CHRISTOPHER PA Unavailable Unavailable SYMENOW, G CHRISTOPHER PA Unavailable Unavailable SYMENOW, G CHRISTOPHER PA Unavailable Unavailable SYMENOW, G CHRISTOPHER PA Unavailable Unavailable SYMENOW, G CHRISTOPHER PA Unavailable Unavailable SYMENOW, G CHRISTOPHER PA Unavailable Unavailable SYMENOW, G CHRISTOPHER PA Unavailable Unavailable SYMENOW, G CHRISTOPHER PA Unavailable Unavailable SYMENOW, G CHRISTOPHER PA Unavailable Unavailable SYMENOW, G CHRISTOPHER PA Unavailable Unavailable Rydberg, Linda PA Unavailable Unavailable Rydberg, Linda PA Unavailable Unavailable Rydberg, Linda PA Unavailable Unavailable Rydberg, Linda PA Unavailable Unavailable Rydberg, Linda PA Unavailable Unavailable Rydberg, Linda PA Unavailable Unavailable Rydberg, Linda PA Unavailable Unavailable Rydberg, Linda PA Unavailable Unavailable Rydberg, Linda PA Unavailable Unavailable Rydberg, Linda PA Unavailable Unavailable Rydberg, Linda PA Unavailable Unavailable Rydberg, Linda PA Unavailable Unavailable Rydberg, Linda PA Unavailable Unavailable Rydberg, Linda PA Unavailable Unavailable Rydberg, Linda PA Unavailable Unavailable Rydberg, Linda PA Unavailable Unavailable Rydberg, Linda PA Unavailable Unavailable Rydberg, Linda PA Unavailable Unavailable Rydberg, Linda PA Unavailable Unavailable Rydberg, Linda PA Unavailable Unavailable Rydberg, Linda PA Unavailable Unavailable Rydberg, Linda PA Unavailable Unavailable Rydberg, Linda PA Unavailable Unavailable [place], Elle RPA-C Unavailable Unavailable [place], Elle RPA-C Unavailable Unavailable [place], Elle RPA-C Unavailable Unavailable [place], Elle RPA-C Unavailable Unavailable [place], Elle RPA-C Unavailable Unavailable [place], Elle RPA-C Unavailable Unavailable [place], Elle RPA-C Unavailable Unavailable [place], Elle RPA-C Unavailable Unavailable [place], Elle RPA-C Unavailable Unavailable [place], Elle RPA-C Unavailable Unavailable [place], Elle RPA-C Unavailable Unavailable [place], Elle RPA-C Unavailable Unavailable [place], Elle RPA-C Unavailable Unavailable [place], Elle RPA-C Unavailable Unavailable [place], Elle RPA-C Unavailable Unavailable [place], Elle RPA-C Unavailable Unavailable [place], Elle RPA-C Unavailable Unavailable [place], Elle RPA-C Unavailable Unavailable PUENTE, JOYA Unavailable Unavailable Gurinder, M Janneth PA-C Unavailable Unavailable Gurinder, M Janneth PA-C Unavailable Unavailable Gurinder, M Janneth PA-C Unavailable Unavailable Gurinder, M Janneth PA-C Unavailable Unavailable Gurinder, M Janneth PA-C Unavailable Unavailable Gurinder, M Janneth PA-C Unavailable Unavailable Gurinder, M Janneth PA-C Unavailable Unavailable Gurinder, M Janneth PA-C Unavailable Unavailable Gurinder, M Janneth PA-C Unavailable Unavailable Gurinder, M Janneth PA-C Unavailable Unavailable Gurinder, M Janneth PA-C Unavailable Unavailable Gurinder, M Janneth PA-C Unavailable Unavailable Gurinder, M Janneth PA-C Unavailable Unavailable Gurinder, M Janneth PA-C Unavailable Unavailable Gurinder, M Janneth PA-C Unavailable Unavailable Gurinder, M Janneth PA-C Unavailable Unavailable Gurinder, M Janneth PA-C Unavailable Unavailable Gurinder, M Janneth PA-C Unavailable Unavailable Gurinder, M Janneth PA-C Unavailable Unavailable Gurinder, M Janneth PA-C Unavailable Unavailable Gurinder, M Janneth PA-C Unavailable Unavailable Gurinder, M Janneth PA-C Unavailable Unavailable Gurinder, M Janneth PA-C Unavailable Unavailable Gurinder, M Janneth PA-C Unavailable Unavailable Gurinder, M Janneth PA-C Unavailable Unavailable Gurinder, M Janneth PA-C Unavailable Unavailable Gurinder, M Janneth PA-C Unavailable Unavailable Gurinder, M Janneth PA-C Unavailable Unavailable Gurinder, M Janneth PA-C Unavailable Unavailable Gurinder, M Janneth PA-C Unavailable Unavailable Gurinder, M Janneth PA-C Unavailable Unavailable Gurinder, M Janneth PA-C Unavailable Unavailable Gurinder, M Janneth PA-C Unavailable Unavailable Gurinder, M Janneth PA-C Unavailable Unavailable Gurinder, M Janneth PA-C Unavailable Unavailable Gurinder, M Janneth PA-C Unavailable Unavailable Gurinder, M Janneth PA-C Unavailable Unavailable LAINEY LAWSON JR Unavailable Unavailable Celeste WILCOX Unavailable Unavailable EVY, MIGUEL TAMIE PA Unavailable Unavailable EVY, MIGUEL TAMIE PA Unavailable Unavailable EVY, MIGUEL TAMIE PA Unavailable Unavailable EVY, MIGUEL TAMIE PA Unavailable Unavailable EVY, MIGUEL TAMIE PA Unavailable Unavailable EVY, MIGUEL TAMIE PA Unavailable Unavailable EVY, MIGUEL TAMIE PA Unavailable Unavailable EVY, MIGUEL TAMIE PA Unavailable Unavailable EVY, MIGUEL TAMIE PA Unavailable Unavailable EVY, MIGUEL TAMIE PA Unavailable Unavailable EVY, MIGUEL TAMIE PA Unavailable Unavailable EVY, MIGUEL TAMIE PA Unavailable Unavailable EVY, MIGUEL TAMIE PA Unavailable Unavailable EVY, MIGUEL TAMIE PA Unavailable Unavailable EVY, MIGUEL TAMIE PA Unavailable Unavailable EVY, MIGUEL TAMIE PA Unavailable Unavailable EVY, MIGUEL TAMIE PA Unavailable Unavailable EVY, MIGUEL TAMIE PA Unavailable Unavailable EVY, MIGUEL TAMIE PA Unavailable Unavailable EVY, MIGUEL TAMIE PA Unavailable Unavailable EVY, MIGUEL TAMIE PA Unavailable Unavailable EVY, MIGUEL TAMIE PA Unavailable Unavailable Stephanie, Reginah W Sophie MANAGER INTEGRATED-C Unavailable Unavailabl e Stephanie, Belia W Sophie MANAGER INTEGRATED-C Unavailable Unavailabl e Stephanie, Belia W Sophie MANAGER INTEGRATED-C Unavailable Unavailabl e Stephanie, Belia W Sophie MANAGER INTEGRATED-C Unavailable Unavailabl e Stephanie, Belia W Sophie MANAGER INTEGRATED-C Unavailable Unavailabl e Stephanie, Regmassimo W Sophie MANAGER INTEGRATED-C Unavailable Unavailabl e Stephanie, Regmassimo W Sophie MANAGER INTEGRATED-C Unavailable Unavailabl e Stephanie, Belia W Sophie MANAGER INTEGRATED-C Unavailable Unavailabl e Stephanie, Belia W Sophie MANAGER INTEGRATED-C Unavailable Unavailabl e Stephanie, Belia W Sophie MANAGER INTEGRATED-C Unavailable Unavailabl e Stephanie, Belia Barrios MANAGER INTEGRATED-C Unavailable Unavailabl e Stephanie, Belia W Sophie MANAGER INTEGRATED-C Unavailable Unavailabl e Stephanie, Belia Barrios MANAGER INTEGRATED-C Unavailable Unavailabl e Stephanie, Belia Barrios MANAGER INTEGRATED-C Unavailable Unavailabl e Stephanie, Belia W Sophie MANAGER INTEGRATED-C Unavailable Unavailabl e Stephanie, Belia W Sophie MANAGER INTEGRATED-C Unavailable Unavailabl e Stephanie, Belia W Sophie MANAGER INTEGRATED-C Unavailable Unavailabl e Stephanie, Belia W Sophie MANAGER INTEGRATED-C Unavailable Unavailabl e Stephanie, Regshanta W Sophie MANAGER INTEGRATED-C Unavailable Unavailabl e Stephanie, Regshanta W Sophie MANAGER INTEGRATED-C Unavailable Unavailabl e Stephanie, Regmassimo W Sophie MANAGER INTEGRATED-C Unavailable Unavailabl e Stephanie, Regshanta W Sophie MANAGER INTEGRATED-C Unavailable Unavailabl e Stephanie, Regshanta W Sophie MANAGER INTEGRATED-C Unavailable Unavailabl e Stpehanie, Regshanta W Sophie MANAGER INTEGRATED-C Unavailable Unavailabl e Stephanie, Regshanta W Sophie MANAGER INTEGRATED-C Unavailable Unavailabl e Stephanie, Regshanta W Sophie MANAGER INTEGRATED-C Unavailable Unavailabl e Stephanie, Regshanta W Sophie MANAGER INTEGRATED-C Unavailable Unavailabl e Stephanie, Reginah W Sophie MANAGER INTEGRATED-C Unavailable Unavailabl e Stephanie, Reginah W Sophie MANAGER INTEGRATED-C Unavailable Unavailabl e Stephanie, Reginah W Sophie MANAGER INTEGRATED-C Unavailable Unavailabl e Stephanie, Reginah W Sophie MANAGER INTEGRATED-C Unavailable Unavailabl e Stephanie, Reginah W Sophie MANAGER INTEGRATED-C Unavailable Unavailabl e SHIRIN, BLAKE PA Unavailable Unavailable SHIRIN, BLAKE PA Unavailable Unavailable SHIRIN, BLAKE PA Unavailable Unavailable SHIRIN, BLAKE PA Unavailable Unavailable SHIRIN, BLAKE PA Unavailable Unavailable SHIRIN, BLAKE PA Unavailable Unavailable SHIRIN, BLAKE PA Unavailable Unavailable SHIRIN, BLAKE PA Unavailable Unavailable SHIRIN, BLAKE PA Unavailable Unavailable SHIRIN, BLAKE PA Unavailable Unavailable SHIRIN, BLAKE PA Unavailable Unavailable SHIRIN, BLAKE PA Unavailable Unavailable SHIRIN, BLAKE PA Unavailable Unavailable SHIRIN, BLAKE PA Unavailable Unavailable SHIRIN, BLAKE PA Unavailable Unavailable TIFFANY OLVERA MD Unavailable Unavailable TIFFANY OLVERA MD Unavailable Unavailable TIFFANY OLVERA MD Unavailable Unavailable TIFFANY OLVERA MD Unavailable Unavailable TIFFANY OLVERA MD Unavailable Unavailable TIFFANY OLVERA MD Unavailable Unavailable TIFFANY OLVERA MD Unavailable Unavailable TIFFANY OLVERA MD Unavailable Unavailable TIFFANY OLVERA MD Unavailable Unavailable TIFFANY OLVERA MD Unavailable Unavailable TIFFANY OLVERA MD Unavailable Unavailable TIFFANY OLVERA MD Unavailable Unavailable TIFFANY OLVERA MD Unavailable Unavailable TIFFANY OLVERA MD Unavailable Unavailable TIFFANY OLVERA MD Unavailable Unavailable TIFFANY OLVERA MD Unavailable Unavailable TIFFANY OLVERA MD Unavailable Unavailable TIFFANY OLVERA MD Unavailable Unavailable TIFFANY OLVERA MD Unavailable Unavailable TIFFANY OLVERA MD Unavailable Unavailable TIFFANY OLVERA MD Unavailable Unavailable TIFFANY OLVERA MD Unavailable Unavailable TIFFANY OLVERA MD Unavailable Unavailable TIFFANY OLVERA MD Unavailable Unavailable TIFFANY OLVERA MD Unavailable Unavailable TIFFANY OLVERA MD Unavailable Unavailable GINZBURG, TIFFANY MD Unavailable Unavailable GINZBURG, TIFFANY MD Unavailable Unavailable GINZBURG, TIFFANY MD Unavailable Unavailable GINZBURG, TIFFANY MD Unavailable Unavailable GINZBURG, TIFFANY MD Unavailable Unavailable GINZBURG TIFFANY MD Unavailable Unavailable GINZBURG, TIFFANY MD Unavailable Unavailable GINZBURG TIFFANY MD Unavailable Unavailable GINZBURG, TFIFANY MD Unavailable Unavailable GINZBURG, TIFFANY MD Unavailable Unavailable GINZBURG, TIFFANY MD Unavailable Unavailable GINZBURG, TIFFANY MD Unavailable Unavailable GINZBURG, TIFFANY MD Unavailable Unavailable GINZBURG, TIFFANY MD Unavailable Unavailable GINZBURG, TIFFANY MD Unavailable Unavailable GINZBURG, TIFFANY MD Unavailable Unavailable GINZBURG TIFFANY MD Unavailable Unavailable GINZBURG, TIFFANY MD Unavailable Unavailable GINZBURG TIFFANY MD Unavailable Unavailable GINZBURG, TIFFANY MD Unavailable Unavailable GINZBURG TIFFANY MD Unavailable Unavailable GINZBURG, TIFFANY MD Unavailable Unavailable GINZBURG, TIFFANY MD Unavailable Unavailable GINZBURG, TIFFANY MD Unavailable Unavailable GINZBURG, TIFFANY MD Unavailable Unavailable GINZBURG TIFFANY MD Unavailable Unavailable GINZBURG TIFFANY Unavailable Unavailable GINZPRO TIFFANY MD Unavailable Unavailable GINZPRO TIFFANY MD Unavailable Unavailable GINZBURG TIFFANY MD Unavailable Unavailable GINZBURG TIFFANY MD Unavailable Unavailable GINZBURG TIFFANY MD Unavailable Unavailable GINZBURG TIFFANY MD Unavailable Unavailable GINZBURG TIFFANY MD Unavailable Unavailable GINZBURG, TIFFANY MD Unavailable Unavailable GINZBURG, TIFFANY MD Unavailable Unavailable GINZBURG, TIFFANY MD Unavailable Unavailable GINZBURG, TIFFANY MD Unavailable Unavailable GINZBURG TIFFANY MD Unavailable Unavailable GINZBURG TIFFANY MD Unavailable Unavailable GINZBURG TIFFANY MD Unavailable Unavailable GINZBURG, TIFFANY MD Unavailable Unavailable GINZBURG, TIFFANY MD Unavailable Unavailable GINZBURG, TIFFANY MD Unavailable Unavailable GINZBURG, TIFFANY MD Unavailable Unavailable GINZBURG, TIFFANY Unavailable Unavailable Ray Wilcox Unavailable Ray Wilcox Unavailable EGORHO, @RH LILI Unavailable Unavailable DRAZEK, I BEATRICE PA Unavailable Unavailable DRAZEK, I BEATRICE PA Unavailable Unavailable DRAZEK, I BEATRICE PA Unavailable Unavailable DRAZEK, I BEATRICE PA Unavailable Unavailable DRAZEK, I BEATRICE PA Unavailable Unavailable DRAZEK, I BEATRICE PA Unavailable Unavailable DRAZEK, I BEATRICE PA Unavailable Unavailable DRAZEK, I BEATRICE PA Unavailable Unavailable DRAZEK, I BEATRICE PA Unavailable Unavailable DRAZEK, I BEATRICE PA Unavailable Unavailable DRAZEK, I BEATRICE PA Unavailable Unavailable DRAZEK, I BEATRICE PA Unavailable Unavailable DRAZEK, I BEATRICE PA Unavailable Unavailable DRAZEK, I BEATRICE PA Unavailable Unavailable DRAZEK, I BEATRICE PA Unavailable Unavailable DRAZEK, I BEATRICE PA Unavailable Unavailable DRAZEK, I BEATRICE PA Unavailable Unavailable DRAZEK, I BEATRICE PA Unavailable Unavailable DRAZEK, I BEATRICE PA Unavailable Unavailable DRAZEK, I BEATRICE PA Unavailable Unavailable DRAZEK, I BEATRICE PA Unavailable Unavailable DRAZEK, I BEATRICE PA Unavailable Unavailable DRAZEK, I BEATRICE PA Unavailable Unavailable DRAZEK, I BEATRICE PA Unavailable Unavailable DRAZEK, I BEATRICE PA Unavailable Unavailable DRAZEK, I BEATRICE PA Unavailable Unavailable DRAZEK, I BEATRICE PA Unavailable Unavailable DRAZEK, I BEATRICE PA Unavailable Unavailable DRAZEK, I BEATRICE PA Unavailable Unavailable DRAZEK, I BEATRICE PA Unavailable Unavailable ALLIE, L PAUL PA Unavailable Unavailable ALLIE, L PAUL PA Unavailable Unavailable ALLIE, L PAUL PA Unavailable Unavailable ALLIE, L PAUL PA Unavailable Unavailable ALLIE, L PAUL PA Unavailable Unavailable ALLIE, L PAUL PA Unavailable Unavailable ALLIE, L PAUL PA Unavailable Unavailable ALLIE, L PAUL PA Unavailable Unavailable ALLIE, L PAUL PA Unavailable Unavailable ALLIE, L PAUL PA Unavailable Unavailable ALLIE, L PAUL PA Unavailable Unavailable ALLIE, L PAUL PA Unavailable Unavailable ALLIE, L PAUL PA Unavailable Unavailable ALLIE, L PAUL PA Unavailable Unavailable ALLIE, L PAUL PA Unavailable Unavailable ALLIE, L PAUL PA Unavailable Unavailable ALLIE, L PAUL PA Unavailable Unavailable ALLIE, L PAUL PA Unavailable Unavailable ALLIE, L PAUL PA Unavailable Unavailable ALLIE, L PAUL PA Unavailable Unavailable ALLIE, L PAUL PA Unavailable Unavailable ALLIE, L PAUL PA Unavailable Unavailable Tayler, A Janneth MANAGER INTEGRATED Unavailable Unavailable Tayler, A Janneth MANAGER INTEGRATED Unavailable Unavailable Tayler, A Janneth MANAGER INTEGRATED Unavailable Unavailable Tayler, A Janneth MANAGER INTEGRATED Unavailable Unavailable Tayler, A Janneth MANAGER INTEGRATED Unavailable Unavailable Tayler, A Janneth MANAGER INTEGRATED Unavailable Unavailable Tayler, A Janneth MANAGER INTEGRATED Unavailable Unavailable Tayler, A Janneth MANAGER INTEGRATED Unavailable Unavailable Tayler, A Janneth MANAGER INTEGRATED Unavailable Unavailable Tayler, A Janneth MANAGER INTEGRATED Unavailable Unavailable Tayler, A Janneth MANAGER INTEGRATED Unavailable Unavailable Tayler, A Janneth MANAGER INTEGRATED Unavailable Unavailable Tayler, A Janneth MANAGER INTEGRATED Unavailable Unavailable Tayler, A Janneth MANAGER INTEGRATED Unavailable Unavailable Tayler, A Janneth MANAGER INTEGRATED Unavailable Unavailable Tayler, A Janneth MANAGER INTEGRATED Unavailable Unavailable Tayler, A Janneth MANAGER INTEGRATED Unavailable Unavailable Tayler, A Janneth MANAGER INTEGRATED Unavailable Unavailable Tayler, A Janneth MANAGER INTEGRATED Unavailable Unavailable Tayler, A Janneth MANAGER INTEGRATED Unavailable Unavailable Tayler, A Janneth MANAGER INTEGRATED Unavailable Unavailable Tayler, A Janneth MANAGER INTEGRATED Unavailable Unavailable Tayler, A Janneth MANAGER INTEGRATED Unavailable Unavailable Tayler, A Janneth MANAGER INTEGRATED Unavailable Unavailable Tayler, A Janneth MANAGER INTEGRATED Unavailable Unavailable Tayler, A Janneth MANAGER INTEGRATED Unavailable Unavailable Tayler, A Janneth MANAGER INTEGRATED Unavailable Unavailable Tayler, A Janneth MANAGER INTEGRATED Unavailable Unavailable Tayler, A Janneth MANAGER INTEGRATED Unavailable Unavailable Tayler, A Janneth MANAGER INTEGRATED Unavailable Unavailable Tayler, A Janneth MANAGER INTEGRATED Unavailable Unavailable Tayler, A Janneth MANAGER INTEGRATED Unavailable Unavailable Tayler, A Janneth MANAGER INTEGRATED Unavailable Unavailable Tayler, A Janneth MANAGER INTEGRATED Unavailable Unavailable Tayler, A Janneth MANAGER INTEGRATED Unavailable Unavailable Tayler, A Janneth MANAGER INTEGRATED Unavailable Unavailable Tayler, A Janneth MANAGER INTEGRATED Unavailable Unavailable Tayler, A Janneth MANAGER INTEGRATED Unavailable Unavailable Tayler, A Janneth MANAGER INTEGRATED Unavailable Unavailable Tayler, A Janneth MANAGER INTEGRATED Unavailable Unavailable Tayler, A Janneth MANAGER INTEGRATED Unavailable Unavailable Tayler, A Janneth MANAGER INTEGRATED Unavailable Unavailable Tayler, A Janneth MANAGER INTEGRATED Unavailable Unavailable Tayler, A Janneth MANAGER INTEGRATED Unavailable Unavailable Tayler, A Janneth MANAGER INTEGRATED Unavailable Unavailable Tayler, A Janneth MANAGER INTEGRATED Unavailable Unavailable Tayler, A Janneth MANAGER INTEGRATED Unavailable Unavailable Tayler, A Janneth MANAGER INTEGRATED Unavailable Unavailable Tayler, A Janneth MANAGER INTEGRATED Unavailable Unavailable Tayler, A Janneth MANAGER INTEGRATED Unavailable Unavailable Tayler, A Janneth MANAGER INTEGRATED Unavailable Unavailable Tayler, A Janneth MANAGER INTEGRATED Unavailable Unavailable Tayler, A Janneth MANAGER INTEGRATED Unavailable Unavailable EGORHO, F LILI FPMHNP Unavailable Unavailable EGORHO, F LILI FPMHNP Unavailable Unavailable EGORHO, F LILI FPMHNP Unavailable Unavailable EGORHO, F LILI FPMHNP Unavailable Unavailable EGORHO, F LILI FPMHNP Unavailable Unavailable EGORHO, F LILI FPMHNP Unavailable Unavailable EGORHO, F LILI FPMHNP Unavailable Unavailable EGORHO, F LILI FPMHNP Unavailable Unavailable Re-disclosure Warning The records that you are about to access may contain information from federally-assisted alcohol or drug abuse programs. If such information is present, then the following federally mandated warning applies: This information has been disclosed to you from records protected by federal confidentiality rules (42 CFR part 2). The federal rules prohibit you from making any further disclosure of this information unless further disclosure is expressly permitted by the written consent of the person to whom it pertains or as otherwise permitted by 42 CFR part 2. A general authorization for the release of medical or other information is NOT sufficient for this purpose. The Federal rules restrict any use of the information to criminally investigate or prosecute any alcohol or drug abuse patient.The records that you are about to access may contain highly sensitive health information, the redisclosure of which is protected by Article 27-F of the [facility] Public Health law. If you continue you may have access to information: Regarding HIV / AIDS; Provided by facilities licensed or operated by the [facility] Office of Mental Health; or Provided by the [facility] Office for People With Developmental Disabilities. If such information is present, then the following [facility] mandated warning applies: This information has been disclosed to you from confidential records which are protected by state law. State law prohibits you from making any further disclosure of this information without the specific written consent of the person to whom it pertains, or as otherwise permitted by law. Any unauthorized further disclosure in violation of state law may result in a fine or nursing home sentence or both. A general authorization for the release of medical or other information is NOT sufficient authorization for further disc losure. Family History Family Member Name Family Member Gender Family Member Status Date o f Status Description Data Source(s) Unknown Male Problem MEDENT ([facility] ) Unknown Unknown Problem MED[facility] ([facility], ) mother age dx late 50s Unknown Unknown Problem MEDENT ([facility], ) Unknown Female Problem [facility] ([facility] Encounters Encounter Providers Location Date Indications Data Source(s ) Outpatient [facility] 12/04/2020 12:00:00 AM EDT eCW1 ([facility]) Outpatient Attender: Janneth LO 11/27/2020 09:55 :00 AM [facility] Outpatient Attender: LILI BUNNLORI 11/21/2020 01:00: 00 PM [facility] Outpatient Attender: Janneth LO 11/08/2020 09:35 :00 AM [facility] Outpatient Attender: BARB FRANCO DO 11/08/2020 09:01:00 A M [facility] Outpatient [facility] 11/08/2020 12:00:00 AM EDT eCW1 ([facility]) Outpatient [facility] 11/08/2020 12:00:00 AM EDT eCW1 ([facility]) Outpatient Attender: Ray Wilcox 09/18/2020 04:00:00 PM [facility] Outpatient Attender: LILI RIDDLE 09/12/2020 03:00: 00 PM [facility] Outpatient [facility] 09/12/2020 12:00:00 AM EDT eCW1 ([facility]) Outpatient Attender: Janneth Lester FNPReferrer: Janneth RUIZP EMERGENCY ROOM-CT 09/11/2020 10:02:00 AM EDT - 09/11/2020 10:02:00 AM EDT [facility] Outpatient Attender: Janneth Fairchild PA-C 08/31/2020 02:40 :00 PM EDT [facility] Outpatient [facility] 08/31/2020 12:00:00 AM EDT eCW1 ([facility]) Emergency Attender: PAUL Ortizer: Janneth LO 08/10/2020 09:51:00 AM EDT - 08/10/2020 10:22:00 AM EDT [facility] pital Patient discharged. Outpatient Attender: LILI BUNNLORI 08/01/2020 04:00: 00 PM EDT [facility] Outpatient Attender: BARB AMARAL [facility] Office 07/02 03:00:00 PM EDT MED[facility] ([facility] Outpatient [facility] 07/25/2020 12:00:00 AM EDT eCW1 ([facility]) Outpatient [facility] 07/06/2020 12:00:00 AM EDT eCW1 ([facility]) Outpatient Attender: Linda FARLEY 07/03/2020 01:30:00 PM EDT [facility] Outpatient [facility] 07/03/2020 12:00:00 AM EDT eCW1 ([facility]) Outpatient Attender: Ray Wilcox 06/26/2020 06:00:00 PM EDT [facility] Outpatient Attender: LILI Urbinaender: [email or web address] 06/20/2020 05:10:00 PM EDT [facility] Outpatient [facility] 06/14/2020 12:00:00 AM EDT eCW1 ([facility]) Outpatient [facility] 05/24/2020 12:00:00 AM EDT eCW1 ([facility]) Outpatient Attender: Sophie GUIDO 05/19/2020 04:46:0 0 PM EDT [facility] Admission cancelled. Disregard status an d admitted date. Outpatient Attender: Sophie Spangler: Janneth freeman MANAGER INTEGRATED 05/19/2020 04:17:00 PM EDT - 05/19/2020 04:17:00 PM EDT [facility] Outpatient [facility] 05/19/2020 12:00:00 AM EDT eCW1 ([facility]) Emergency Attender: BLAKE Armstrongerrer: Janneth bello MANAGER INTEGRATED 05/18/2020 04:07:00 PM EDT - 05/18/2020 04:58:00 PM EDT [facility] pital Patient discharged. Outpatient Attender: Ray Scottttender: RAY DIAZ 05/11/2020 06:00:[address] [facility] Outpatient Attender: LILI CISNEROS 05/03/2020 04:00:00 PM [facility] Outpatient Attender: RAY WILCOX 03/31/2020 03:00:[address] [facility] OFFICE OUTPATIENT VISIT 15 MINUTES Attender: BEATRICE FARLEY Phys ical Therapy 03/24/2020 08:15:00 AM EST MEDENT ([facility]) Outpatient Attender: JOYA PUENTE 03/13/2020 04:43:00 PM [facility] Outpatient Attender: RAY WILCOX 03/02/2020 03:00:[address] [facility] Outpatient Attender: Elle LEAVITTC 02/09/2020 02:00: 00 PM [facility] 02/09/2020 12:00:00 AM EST eCW1 ([facility]) Emergency Attender: FABRIZIO Armstrongerrer : Janneth Lester [facility] EMERGENCY ROOM-ER 02/08/2020 02:08:00 PM EST - 02/08/2020 04:24:[address] [facility] Patient discharged. Outpatient Attender: JOYA PUENTE 02/07/2020 05:00:00 PM [facility] Outpatient Attender: RAY WILCOX 02/04/2020 03:00:[address] [facility] Outpatient Attender: JOYA PUENTE 01/10/2020 05:00:00 PM [facility] Outpatient Attender: Annabel KOHLER 01/06/2020 02:03:[address] [facility] Outpatient [facility] 01/06/2020 12:00:00 AM EST eCW1 ([facility]) Outpatient Attender: RAY WILCOX 01/05/2020 06:00:[address] [facility] Outpatient Attender: TIFFANY OLVERA MD 12/16/2019 12:00: 00 AM [facility] OFFICE OUTPATIENT VISIT 15 MINUTES Attender: BEATRICE FARLEY Phys ical Therapy 12/08/2019 10:45:00 AM EDT MEDENT ([facility]) Outpatient Attender: Janneth GAYC 12/06/2019 01:24 :00 PM EDT [facility] Outpatient [facility] 12/06/2019 12:00:00 AM EDT eCW1 ([facility]) Recurring Patient Referrer: Janneth LO 0 05:13:25 PM EDT [facility] Outpatient Attender: RAY WILCOX 11/26/2019 03:53:00 PM EDT [facility] Outpatient Attender: JOYA PUENTE 11/22/2019 05:00:00 PM ED T [facility] Outpatient Attender: Janneth Lester FNPReferrer: Janneth LO 11/22/2019 02:24:00 PM EDT - 11/22/2019 02:24:00 PM T [facility] Outpatient Attender: Janneth LO 11/22/2019 01:29 :00 PM EDT [facility] Outpatient [facility] 11/22/2019 12:00:00 AM EDT eCW1 ([facility]) Outpatient [facility] 11/22/2019 12:00:00 AM EDT eCW1 ([facility]) Outpatient [facility] 11/22/2019 12:00:00 AM EDT eCW1 ([facility]) Outpatient [facility] 11/22/2019 12:00:00 AM EDT eCW1 ([facility]) Outpatient Attender: BARB Fullererrer: Zia LO EMERGENCY ROOM-LAB REF 11/03/2019 11:13:00 AM EDT - 11/03/2019 11:13:00 AM [facility] Outpatient Attender: BARB FRANCO DO 11/03/2019 09:22:00 A M [facility] Outpatient [facility] 11/03/2019 12:00:00 AM EDT [facility] ([facility]) Outpatient Attender: VASU HUERTA SR 11/01/2019 02:00:00 PM [facility] Outpatient [facility] 11/01/2019 12:00:00 AM EDT eC1 ([facility]) Emergency Attender: ADRIANA LAWSON JRReferrer: Me james LO EMERGENCY ROOM-ER 10/30/2019 07:37:00 PM EDT - 10/30/2019 08:36:00 PM [facility] Patient discharged. Outpatient Attender: RAY WILCOX 10/26/2019 04:00:00 PM [facility] Outpatient Attender: JOYA PUENTE 10/25/2019 04:40:00 PM [facility] Outpatient Attender: Janneth LO 10/18/2019 02:30 :00 PM [facility] Outpatient Attender: RAY WILCOX 10/07/2019 05:00:00 PM [facility] Outpatient Attender: RAY WILCOX 10/01/2019 01:00:00 PM [facility] Outpatient Attender: JOYA PUENTE 09/13/2019 03:00:00 PM [facility] Outpatient Attender: Janneth LO 08/26/2019 02:21 :00 PM [facility] Outpatient Attender: Janneth Lester FNPReferrer: Janneth LO EMERGENCY ROOM-LAB 08/17/2019 02:56:00 PM EDT - 08/17/2019 02:56:00 PM [facility] Outpatient Attender: JOYA PUENTE 07/12/2019 02:36:00 PM [facility] Outpatient Attender: JOYA PUENTE 05/10/2019 01:55:00 PM [facility] Outpatient Attender: Janneth Lester FNPReferrer: Janneth LO 03/16/2019 12:00:[address] [facility] Outpatient Attender: Janneth Lester FNPReferrer: Janneth LO 02/11/2019 03:09:00 PM EST - 02/11/2019 03:09:[address] [facility] Outpatient Attender: Janneth Lester FNPReferrer: Janneth Lester MANAGER INTEGRATED 01/20/2019 01:00:00 PM EST - 01/20/2019 01:00:[address] [facility] Emergency Attender: TAMIE RATLIFF PAReferrer: Janneth Duráne MANAGER INTEGRATED 11/17/2017 01:33:00 PM EDT - 11/17/2017 02:25:00 PM [facility] Outpatient Attender: Sophie Brown MANAGER INTEGRATED-CReferrer: Janneth Baldev rfeeman [facility] 10/10/2017 03:40:00 PM EDT - 10/10/2017 03:40:00 PM [facility] Outpatient Attender: Janneth Tayler RUIZP 0 09/25/2017 01:00:00 PM EDT - 09/25/2017 01:00:00 PM [facility] Emergency Attender: RUSSELL FARLEY EMERGENCY ROOM-ER 05/03 12:36:00 PM EDT - 05/31/2017 02:02:00 PM [facility] Outpatient Attender: Janneth Tayler RUIZP 12/09/2016 01:33 :00 PM [facility] Outpatient Attender: Kathy Curran MD 09/25/2016 09:4 0:00 AM [facility] Outpatient Attender: BARB FRANCO DO 09/19/2015 09:05:00 A M [facility] Immunizations Vaccine Date Status Description Data Source(s) COVID-19 VACCINE Moderna 06/19/2020 12:00:00 AM EDT completed [facility] Vaccine Series Complete: YESThis Data wa s Submitted to [facility] Via [employer]. COVID-19 VACC,MRNA(MODERNA)/PF 05/19/2020 12:00:00 AM EDT completed [facility] COVID-19 VACCINE Moderna 05/19/2020 12:00:00 AM EDT completed [facility] Vaccine Series Complete: NOThis Data was Submitted to [facility] Via [employer]. New in 2011. IIV4 01/06/2020 02:08:00 PM EST completed eCW1 ([facility]) New in 2011. IIV4 01/06/2020 02:08:00 PM EST completed eCW1 ([facility]) New in 2011. II01/06/2020 02:08:00 PM EST completed eCW1 ([facility]) New in 2011. IIV4 01/06/2020 02:08:00 PM EST completed eCW1 ([facility]) New in 2011. II01/06/2020 02:08:00 PM EST completed eCW1 ([facility]) New in 2011. IIV01/06/2020 02:08:00 PM EST completed eCW1 ([facility]) New in 2011. II01/06/2020 02:08:00 PM EST completed eCW1 ([facility]) New in 2011. II01/06/2020 02:08:00 PM EST completed eCW1 ([facility]) New in 2011. II01/06/2020 02:08:00 PM EST completed eCW1 ([facility]) New in 2011. II01/06/2020 02:08:00 PM EST completed eCW1 ([facility]) New in 2011. II01/06/2020 02:08:00 PM EST completed eCW1 ([facility]) New in 2011. II01/06/2020 02:08:00 PM EST completed eCW1 ([facility]) New in 2011. II01/06/2020 02:08:00 PM EST completed eCW1 ([facility]) New in 2011. II01/06/2020 02:08:00 PM EST completed eCW1 ([facility]) Medications Medication Brand Name Start Date Product Form Dose Route Admi nistrative Instructions Pharmacy Instructions Status Indications Reaction Description Data Source(s) Prednisone 20 MG Oral Tablet predniSONE 20 MG predniSONE 20 MG 11/08/2020 12:00:00 AM EDT 2.0 {tablet} active pr edniSONE 20 MG eCW1 ([facility]) Prednisone 20 MG Oral Tablet predniSONE 20 MG predniSONE 20 MG 11/08/2020 12:00:00 AM EDT 2.0 {tablet} active pr edniSONE 20 MG eCW1 ([facility]) Prednisone 20 MG Oral Tablet predniSONE 20 MG predniSONE 20 MG 11/08/2020 12:00:00 AM EDT 2.0 {tablet} active pr edniSONE 20 MG eCW1 ([facility]) physical therapy eval and tx - UNK 11/08/2020 12:00:00 AM EDT active physical therapy eval and tx - eCW1 ([facility]) physical therapy eval and tx - UNK 11/08/2020 12:00:00 AM EDT active physical therapy eval and tx - eCW1 ([facility]) physical therapy eval and tx - UNK 11/08/2020 12:00:00 AM EDT active physical therapy eval and tx - eCW1 ([facility]) tizanidine 2 MG Oral Tablet tiZANidine HCl 2 MG tiZANidine H Cl 2 MG 11/08/2020 12:00:00 AM EDT 1.0 {tablet_as_needed} active tiZANidine HCl 2 MG eCW1 ([facility]) tizanidine 2 MG Oral Tablet tiZANidine HCl 2 MG tiZANidine H Cl 2 MG 11/08/2020 12:00:00 AM EDT 1.0 {tablet_as_needed} active tiZANidine HCl 2 MG eCW1 ([facility]) tizanidine 2 MG Oral Tablet tiZANidine HCl 2 MG tiZANidine H Cl 2 MG 11/08/2020 12:00:00 AM EDT 1.0 {tablet_as_needed} active tiZANidine HCl 2 MG eCW1 ([facility]) 500 mg 07/27/2020 12:00:00 AM EDT tablet 60 TAKE ONE TABLET BY MOUTH TWICE A DAY WITH FOOD TAKE ONE TABLET BY MOUTH TWICE A DAY WITH FOOD SOLD: 07/27/2020 [facility] Naproxen 500 MG Oral Tablet [Naprosyn] Naprosyn 07/27/2020 12:00:00 AM EDT ORAL active [facility] ([facility] Naproxen 250 MG Oral Tablet Naproxen 250 MG 07/03/2020 12:00:00 AM EDT 1.0 {tablet_with_food_or_milk} active Napro xen 250 MG eCW1 ([facility]) Naproxen 250 MG Oral Tablet Naproxen 250 MG 07/03/2020 12:00:00 AM EDT 1.0 {tablet_with_food_or_milk} active Napro xen 250 MG eCW1 ([facility]) Naproxen 250 MG Oral Tablet Naproxen 250 MG 07/03/2020 12:00:00 AM EDT 1.0 {tablet_with_food_or_milk} active eCW1 ([facility]) Naproxen 250 MG Oral Tablet Naproxen 250 MG 07/03/2020 12:00:00 AM EDT 1.0 {tablet_with_food_or_milk} active Napro xen 250 MG eCW1 ([facility]) Naproxen 250 MG Oral Tablet Naproxen 250 MG 07/03/2020 12:00:00 AM EDT 1.0 {tablet_with_food_or_milk} active Napro xen 250 MG eCW1 ([facility]) Magnesium Hydroxide 80 MG/ML Oral Suspension Milk Of Magnesi a 06/19/2020 12:00:00 AM EDT ORAL active M EDENT ([facility], ) Sutab Sutab 06/19/2020 12:00:00 AM EDT active MEDENT ([facility], ) physical therapy eval and tx - UNK 05/19/2020 12:00:00 AM EDT active physical therapy eval and tx - eCW1 ([facility] [place]) physical therapy eval and tx - UNK 05/19/2020 12:00:00 AM EDT active physical therapy eval and tx - eCW1 ([facility]) physical therapy eval and tx - UNK 05/19/2020 12:00:00 AM EDT active physical therapy eval and tx - eCW1 ([facility]) physical therapy eval and tx - UNK 05/19/2020 12:00:00 AM EDT active eCW1 ([facility]) physical therapy eval and tx - UNK 05/19/2020 12:00:00 AM EDT active physical therapy eval and tx - eCW1 ([facility] [place]) physical therapy eval and tx - UNK 05/19/2020 12:00:00 AM EDT active physical therapy eval and tx - eCW1 ([facility]) Fluoxetine 60 MG Oral Tablet Fluoxetine HCl 60 MG Fluoxetine HCl 60 MG 05/03/2020 12:00:00 AM EST 1.0 {tablet} active Fluoxetine HCl 60 MG eCW1 ([facility]) Fluoxetine 60 MG Oral Tablet Fluoxetine HCl 60 MG Fluoxetine HCl 60 MG 05/03/2020 12:00:00 AM EST 1.0 {tablet} active eCW1 ([facility]) Fluoxetine 60 MG Oral Tablet FLUoxetine HCl 60 MG FLUoxetine HCl 60 MG 05/03/2020 12:00:00 AM EST 1.0 {tablet} active FLUoxetine HCl 60 MG eCW1 ([facility]) Fluoxetine 60 MG Oral Tablet Fluoxetine HCl 60 MG Fluoxetine HCl 60 MG 05/03/2020 12:00:00 AM EST 1.0 {tablet} active Fluoxetine HCl 60 MG eCW1 ([facility]) Fluoxetine 60 MG Oral Tablet FLUoxetine HCl 60 MG FLUoxetine HCl 60 MG 05/03/2020 12:00:00 AM EST 1.0 {tablet} active FLUoxetine HCl 60 MG eCW1 ([facility]) Fluoxetine 60 MG Oral Tablet FLUoxetine HCl 60 MG FLUoxetine HCl 60 MG 05/03/2020 12:00:00 AM EST 1.0 {tablet} active FLUoxetine HCl 60 MG eCW1 ([facility]) Fluoxetine 60 MG Oral Tablet FLUoxetine HCl 60 MG FLUoxetine HCl 60 MG 05/03/2020 12:00:00 AM EST 1.0 {tablet} active FLUoxetine HCl 60 MG eCW1 ([facility]) Fluoxetine 60 MG Oral Tablet Fluoxetine HCl 60 MG Fluoxetine HCl 60 MG 05/03/2020 12:00:00 AM EST 1.0 {tablet} active Fluoxetine HCl 60 MG eCW1 ([facility]) Fluoxetine 60 MG Oral Tablet Fluoxetine HCl 60 MG Fluoxetine HCl 60 MG 05/03/2020 12:00:00 AM EST 1.0 {tablet} active Fluoxetine HCl 60 MG eCW1 ([facility]) Fluoxetine 60 MG Oral Tablet FLUoxetine HCl 60 MG FLUoxetine HCl 60 MG 05/03/2020 12:00:00 AM EST 1.0 {tablet} active FLUoxetine HCl 60 MG eCW1 ([facility]) Fluoxetine 60 MG Oral Tablet Fluoxetine HCl 60 MG Fluoxetine HCl 60 MG 05/03/2020 12:00:00 AM EST 1.0 {tablet} active Fluoxetine HCl 60 MG eCW1 ([facility]) Prazosin 1 MG Oral Capsule Prazosin HCl 1 MG Prazosin HCl 1 MG 02/07/2020 12:00:00 AM EST 1.0 {capsule_at_bedtime} active Prazosin HCl 1 MG eCW1 ([facility]) nabumetone 750 MG Oral Tablet Nabumetone 750 MG Nabumetone 7 50 MG 11/22/2019 12:00:00 AM EDT 1.0 {tablet} active Na bumetone 750 MG eCW1 ([facility]) Wellbutrin SR 100 MG UNK 11/22/2019 12:00:00 AM EDT active Wellbutrin SR 100 MG eCW1 ([facility]) Wellbutrin SR 100 MG UNK 11/22/2019 12:00:00 AM EDT active Wellbutrin SR 100 MG eCW1 ([facility]) nabumetone 750 MG Oral Tablet Nabumetone 750 MG Nabumetone 7 50 MG 11/22/2019 12:00:00 AM EDT 1.0 {tablet} active Na bumetone 750 MG eCW1 ([facility]) Wellbutrin SR 100 MG UNK 11/22/2019 12:00:00 AM EDT active Wellbutrin SR 100 MG eCW1 ([facility]) Wellbutrin SR 100 MG UNK 11/22/2019 12:00:00 AM EDT active Wellbutrin SR 100 MG eCW1 ([facility]) Wellbutrin SR 100 MG UNK 11/22/2019 12:00:00 AM EDT active Wellbutrin SR 100 MG eCW1 ([facility]) nabumetone 750 MG Oral Tablet Nabumetone 750 MG Nabumetone 7 50 MG 11/22/2019 12:00:00 AM EDT 1.0 {tablet} active Na bumetone 750 MG eCW1 ([facility]) Wellbutrin SR 100 MG UNK 11/22/2019 12:00:00 AM EDT active Wellbutrin SR 100 MG eCW1 ([facility]) nabumetone 750 MG Oral Tablet Nabumetone 750 MG Nabumetone 7 50 MG 11/22/2019 12:00:00 AM EDT 1.0 {tablet} active Na bumetone 750 MG eCW1 ([facility]) nabumetone 750 MG Oral Tablet Nabumetone 750 MG Nabumetone 7 50 MG 11/22/2019 12:00:00 AM EDT 1.0 {tablet} active Na bumetone 750 MG eCW1 ([facility]) nabumetone 750 MG Oral Tablet Nabumetone 750 MG Nabumetone 7 50 MG 11/22/2019 12:00:00 AM EDT 1.0 {tablet} active Na bumetone 750 MG eCW1 ([facility]) nabumetone 750 MG Oral Tablet Nabumetone 750 MG Nabumetone 7 50 MG 11/22/2019 12:00:00 AM EDT 1.0 {tablet} active Na bumetone 750 MG eCW1 ([facility]) Wellbutrin SR 100 MG UNK 11/22/2019 12:00:00 AM EDT active Well[facility]rin [facility] Wellbutrin SR 100 MG UNK 11/22/2019 12:00:00 AM EDT active Wellbutrin SR 100 MG eCW1 ([facility]) nabumetone 750 MG Oral Tablet Nabumetone 750 MG Nabumetone 7 50 MG 11/22/2019 12:00:00 AM EDT 1.0 {tablet} active Na bumetone 750 MG eCW1 ([facility]) Insurance Providers Payer name Policy type / Coverage type Policy ID Covered democrat ID Covered democrat's relationship to hooper Policy [place]oper Plan Information [place]BS [place] XAVIERN PPO 302/307 [id number] HU2 [id number] Excell[employer] BCBS Medigap Part B [id number] Family Dependent [id number] Excellus BCBS [facility] Part B [id number] Family Dependent [id number] BS [employer] Commercial [id number] BS [employer] Commercial [id number] BS [employer] Commercial [id number] BS [employer] Commercial [id number] BS [employer] Commercial [id number] BS [employer] Commercial [id number] BS [employer] Commercial [id number] BS [employer] Commercial [id number] BCBS [place] [id number] SPO Y [id number] BCBS EX[place] [id number] SPO Y [id number] [place]BS [place] WATN PPO 302/307 [id number] SP [id number] BCBS GENERIC C [id number] Spouse [id number] [place]BS [place] WATN PPO 302/307 [id number] SP [id number] BCBS EXCE[place] [id number] SPO Z [id number] BCBS EXCELL[place] [id number] SPO Z [id number] BCBS EXCELLUS [id number] S Z [id number] BCBS EXCELLUS [id number] S Z [id number] BLUE CARD C [id number] Self [id number] Blue Cross Blue Shield P [id number] SELF [id number] BCBS EXCELL[place] [id number] S Z [id number] BCBS EXCELL[place] [id number] SPO Y [id number] Excell[employer] BCBS Health [place] [place] [id number] Family Dependent [id number] BCBS EX[place] [id number] SPO [id number] [place]BS [place] WAT[place] PPO 302/307 [id number] HU2 [id number] Excell[employer] BCBS Health Maintenance Organization [place] [place] [id number] Family Dependent [id number] BCBS EXCELLUS BC [id number] SPO [id number] BCBS EXCELLUS BC [id number] SPO [id number] BCBS EXCELLUS BC [id number] SPO Z [id number] BCBS [place] BC [id number] SPO Y [id number] EXCELLUS BCBS B [id number] P Y [id number] BCBS [place] BC [id number] SPO [id number] BS [employer] Commercial [id number] Family Dependent BCBS [place] WATN 306/806 [id number] HU2 [id number] i/[employer] Commercial [id number] Family Dependent SELF PAY SP [id number] S [id number] EXCELLUS BCBS B [id number] P [id number] BCBS [place] BC [id number] SPO [id number] BCBS [place] BC [id number] EXCELLUS BCBS P [id number] P [id number] BC/BS Of [employer] [facility] [id number] Family Dep endent BCBS EXCELLUS [id number] S Z [id number] [place]BS [place] WATN PPO 302/307 [id number] SP [id number] BCBS EXCELLUS [id number] S Z [id number] BCBS [place] WATN PPO 302/307 [id number] HU2 [id number] EXCELLUS BCBS B [id number] S Z [id number] BCBS EXCELLUS [id number] SPO Z [id number] BCBS EXCELLUS [id number] S Y [id number] [employer] [id number] [employer] [id number] [facility] [facility] [id number] [employer] [id number] BS [employer] [facility] [id number] Family Dependent [id number] BS [employer] Medigap Part B [id number] [id number] Family Dependent [id number] BS [employer] Medigap Part B [id number] ...[id number] Family Dependent [id number] BS [employer] Medigap Part B [id number] ...[id number] Family Dependent [id number] BS [employer] Medigap Part B [id number] Family Dependent [id number] [employer] [id number] BS [employer] Medigap Part B [id number] Family Dependent [id number] BS [employer] Medigap Part B [id number] .[id number] Family Dependent [id number] BS [employer] Medigap Part B [id number] Family Dependent [id number] [employer] [id number] ANSI-Commercial [id number] ANSI-Commercial [id number] Problems, Conditions, and Diagnoses Code Display Name Description Problem Type Effective Dates Data Source(s) F33.1 Major depressive disorder, recurrent, mo derate MAJOR DEPRESSIVE DISORDER, RECURRENT, MODERATE Diagnosis 11/21/2020 01:00:00 PM [facility] M54.41 Lumbago with sciatica, right side LUMBAGO WITH S CIATICA, RIGHT SIDE Diagnosis 11/08/2020 09:35:00 AM [facility] M54.30 Sciatica, unspecified side SCIATICA, UNSPECIFIED SIDE Diagnosis 11/08/2020 09:01:00 AM [facility] Z01.419 Encounter for gynecological examination (general) (routine) without abnormal findings ENCNTR FOR PILLOWCASE MAKER EXAM (GENERAL) (ROUTINE) W/O ABN FINDIN GS Diagnosis 11/08/2020 09:01:00 AM [facility] R91.8 Other nonspecific abnormal finding of albert ng field OTHER NONSPECIFIC ABNORMAL FINDING OF LUNG FIELD Diagnosis 09/11/2020 10:02:00 AM [facility] J43.2 Centrilobular emphysema CENTRILOBULAR EMPHYSEMA Diagno sis 09/11/2020 10:02:00 AM [facility] E03.9 Hypothyroidism, unspecified HYPOTHYROIDISM, UNSPECIFIE D Diagnosis 09/11/2020 10:02:00 AM [facility] E55.9 Vitamin D deficiency, unspecified VITAMIN D DEFI CIENCY, UNSPECIFIED Diagnosis 09/11/2020 10:02:00 AM [facility] E78.5 Hyperlipidemia, unspecified HYPERLIPIDEMIA, UNSPECIFIE D Diagnosis 09/11/2020 10:02:00 AM [facility] Z12.31 Encounter for screening mammogram for ma lignant neoplasm of breast ENCNTR SCREEN MAMMOGRAM FOR MALIGNANT NE Diagnosis 09/11/2020 10:02:00 AM [facility] Z87.891 Personal history of nicotine dependence PERSONAL HISTORY OF NICOTINE DEPENDENCE Diagnosis 09/11/2020 10:02:00 AM [facility] Z68.37 Body mass index (BMI) 37.0-37.9, adult B [place] INDEX [BMI] 37.0-37.9, ADULT Diagnosis 08/31/2020 02:40:00 PM [facility] l K21.9 Gastro-esophageal reflux disease without esophagitis GASTRO-ESOPHAGEAL REFLUX DISEASE WITHOUT ESOPHAGIT Diagnosis 08/31/2020 02:40:00 PM [facility] N81.10 Cystocele, unspecified CYSTOCELE, UNSPECIFIED Diagnosi s 08/31/2020 02:40:00 PM [facility] F17.210 Nicotine dependence, cigarettes, uncompl icated NICOTINE DEPENDENCE, CIGARETTES, UNCOMPLICATED Diagnosis 08/31/2020 02:40:00 PM [facility] E66.9 Obesity, unspecified OBESITY, UNSPECIFIED Diagnosis 08/31/2020 02:40:00 PM [facility] M19.90 Unspecified osteoarthritis, unspecified site UNSPECIFIED OSTEOARTHRITIS, UNSPECIFIED SITE Diagnosis 08/31/2020 02:40:00 PM [facility] F43.21 Adjustment disorder with depressed mood ADJUSTMENT DISORDER WITH DEPRESSED MOOD Diagnosis 08/31/2020 02:40:00 PM [facility] G47.33 Obstructive sleep apnea (adult) (pediatr ic) OBSTRUCTIVE SLEEP APNEA (ADULT) (PEDIATRIC) Diagnosis 08/31/2020 02:40:00 PM [facility] M51.37 Other intervertebral disc degeneration, lumbosacral region OTHER INTERVERTEBRAL DISC DEGENERATION, LUMBOSACRA Diagnosis 02:40:00 PM [facility] Z00.00 Encounter for general adult medical examination without abnormal findings ENCNTR FOR GENERAL ADULT MEDICAL EXAM W/O ABNORMAL FINDINGS Diagnosis 08/31/2020 02:40:00 PM [facility] Z90.49 Acquired absence of other specified part s of digestive tract ACQUIRED ABSENCE OF OTHER SPECIFIED PARTS OF DIGES Diagnosis 08/10/2020 09:51:0 0 AM [facility] Z79.899 Other rat exterminator (current) drug therapy O THER FOOD AND BEVERAGE OUTLETS MANAGER (CURRENT) DRUG THERAPY Diagnosis 08/10/2020 09:51:00 AM [facility] Z79.82 longterm (current) use of aspirin RETIREMENT (CU RRENT) USE OF ASPIRIN Diagnosis 08/10/2020 09:51:00 AM [facility] Z79.51 longterm (current) use of inhaled stero ids FOOD AND BEVERAGE OUTLETS MANAGER (CURRENT) USE OF INHALED STEROIDS Diagnosis 08/10/2020 09:51:00 AM [facility] E78.00 PURE HYPERCHOLESTEROLEMIA, UNSPECIFIED P URE HYPERCHOLESTEROLEMIA, UNSPECIFIED Diagnosis 08/10/2020 09:51:00 AM [facility] J44.9 Chronic obstructive pulmonary disease, u nspecified CHRONIC OBSTRUCTIVE PULMONARY DISEASE, UNSPECIFIED Diagnosis 08/10/2020 09:51:00 AM [facility] M75.51 Bursitis of right shoulder BURSITIS OF RIGHT SHOULDER Diagnosis 08/10/2020 09:51:00 AM [facility] M25.511 Pain in right shoulder PAIN IN RIGHT SHOULDER Diagnosi s 08/10/2020 09:51:00 AM [facility] M72.2 Plantar fascial fibromatosis PLANTAR FASCIAL FIBROMATO SIS Diagnosis 07/03/2020 01:30:00 PM [facility] 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, lumbosacral region SPONDYLS W/O MYELOPATHY OR RADICULOPATHY, LUMBOSAC Diagnosis 04:17:00 PM [facility] M54.5 Low back pain LOW BACK PAIN Diagnosis 05/19/2020 04:17:00 PM [facility] Y93.89 Activity, other specified ACTIVITY, OTHER SPECIFIED Di agnosis 05/18/2020 04:07:00 PM [facility] Y92.[address] the place of o ccurrence of the external cause OTH PLACES THE PLACE OF OCCURRENCE OF THE EXTER Diagnosis 04:07:00 PM [facility] X58.XXXA Exposure to other specified factors, ini tial encounter EXPOSURE TO OTHER SPECIFIED FACTORS, INITIAL ENCOU Diagnosis 05/18/2020 04:07:00 P M [facility] S39.012A Strain of muscle, fascia and tendon of l ower back, initial encounter STRAIN OF MUSCLE, FASCIA AND TENDON OF LOWER BACK, Diagnosis 04:07:00 PM [facility] F33.9 Major depressive disorder, recurrent, un specified MAJOR DEPRESSIVE DISORDER, RECURRENT, UNSPECIFIED Diagnosis 05/03/2020 04:00:[address] [facility] B34.9 Viral infection, unspecified VIRAL INFECTION, UNSPECIF IED Diagnosis 02/09/2020 02:00:[address] [facility] Z20.828 Contact with and (suspected) exposure to other viral communicable diseases CONTACT W AND EXPOSURE TO OTH VIRAL COMMUNICABLE D Diagnosis 02/08/2020 02:08:[address] [facility] I10 Essential (primary) hypertension ESSENTIAL (PRIMARY) H YPERTENSION Diagnosis 02/08/2020 02:08:[address] [facility] J01.90 Acute sinusitis, unspecified ACUTE SINUSITIS, UNSPECIF IED Diagnosis 02/08/2020 02:08:[address] [facility] J02.9 Acute pharyngitis, unspecified ACUTE PHARYNGITIS, UNSP ECIFIED Diagnosis 02/08/2020 02:08:[address] [facility] R05 Cough COUGH Diagnosis 02/08/2020 02:08:00 PM [facility] Z71.89 Other specified counseling OTHER SPECIFIED COUNSELING Diagnosis 01/06/2020 02:03:[address] [facility] Z23 Encounter for immunization ENCOUNTER FOR IMMUNIZATION Diagnosis 01/06/2020 02:03:[address] [facility] G89.29 Other chronic pain OTHER CHRONIC PAIN Diagnosis 07/2019 01:24:00 PM [facility] M25.562 Pain in left knee PAIN IN LEFT KNEE Diagnosis 11/21 02:24:00 PM [facility] M17.0 Bilateral primary osteoarthritis of knee BILATERAL PRIMARY OSTEOARTHRITIS OF KNEE Diagnosis 11/22/2019 02:24:00 PM [facility] M25.561 Pain in right knee PAIN IN RIGHT KNEE Diagnosis 02:24:00 PM [facility] N95.2 Postmenopausal atrophic vaginitis POSTMENOPAUSAL ATROPHIC VAGINITIS Diagnosis 11/22/2019 01:29:00 PM [facility] Z12.4 Encounter for screening for malignant ne oplasm of cervix ENCOUNTER FOR SCREENING FOR MALIGNANT NEOPLASM OF CERVIX Diagnosis 11/03/2019 09:22: 00 AM [facility] M54.30 [id number] Sciatica, unspecified laterality Problem 11/08/2020 12:00:00 AM ED eCW1 ([facility]) M54.41 [id number] Acute right-sided low back pain with right-sided sciatica Problem 11/08/2020 12:00:00 AM EDT eCW1 ([facility]) E66.9 [id number] Obesity (BMI 30-39.9) Problem 08/31/2020 12: 00:00 AM EDT eCW1 ([facility]) F17.210 [id number] Smoking greater than 30 pack years Proble m 08/31/2020 12:00:00 AM EDT eCW1 ([facility]) Z68.37 [id number] BMI 37.0-37.9, adult Problem 08/31/2020 12:0 0:00 AM EDT eCW1 ([facility]) F33.1 [id number] Moderate episode of recurrent major depre ssive disorder Problem 08/01/2020 12:00:00 AM EDT eCW1 ([facility]) F33.9 [id number] Major depressive dis order, recurrent episode with anxious distress Problem 05/03/2020 12:00:00 AM EST eCW1 ([facility]) M19.90 5286197 Arthritis Problem 11/22/2019 12:00:00 AM ED T eCW1 ([facility]) F33.1 [id number] Major depressive disorder, recurrent, mod erate Problem 11/22/2019 12:00:00 AM EDT eCW1 ([facility]) N81.10 [id number] Female bladder prolapse Problem 11/01/2019 1 2:00:00 AM EDT eCW1 ([facility]) Surgeries/Procedures Procedure Description Date Indications Data Source(s) Colonoscopy Flexible Proximal To Splenic Flexure Diagnostic W/Or 09/07/2020 12:00:00 AM EDT [facility] ([facility] Strapping Foot Or Ankle 07/27/2020 12:00:00 AM EDT [facility] ([facility] RADEX FOOT COMPLETE MINIMUM 3 VIEWS 07/27/2020 12:00:0 0 AM EDT [facility] ([facility] RADEX FOOT COMPLETE MINIMUM 3 VIEWS 07/27/2020 12:00:0 0 AM EDT [facility] ([facility] X-Ray Hip Unilateral With Pelvis 2-3 Views 03/24/2020 12:00:00 AM EST MEDENT ([facility] ) RADIOLOGIC EXAMINATION KNEE 1/2 VIEWS 03/24/2020 12:00 :00 AM EST MEDENT ([facility] ) ARTHROCENTESIS ASPIR&/INJECTION MAJOR JT/BURSA 020 12:00:00 AM EDT MEDENT ([facility] ) Results ID Date Data Source [id number] 09/11/2020 11:02:00 AM EDT [facility] DATE OF EXAMINATION: 09/11/2020 9:30 EDT MAMMO SCREEN BILAT WITH CAD HISTORY: Screening Based on the personal and family history information your patient supplied atthe time of imaging, her lifetime risk of breast cancer estimated date by theTyrer-Cuzick model is 5.2%. If anything changes in the personal and/or familyhistory this percentage could increase or decrease. Currently, NCCN and ACSrecommended adjunctive breast MRI screening starting at age 30 for women with a> 20-25% lifetime risk of developing breast cancer. Comparison is made to prior study dated 03/16/2019. 2-D bilateral digital mammogram in the CC and MLO planes were performed withsupplemental 3-D tomosynthesis of both breasts. The images were analyzed through the latest version of the [employer] computer systems integrator ddiagnosis system. The patient states that her last clinical breast examination was 2 years ago. Craniocaudal and oblique lateral views of the breasts were obtained. (B) Thereare scattered areas of fibroglandular density. . There is no dominant mass,suspicious clustered calcification, or architectural distortion. IMPRESSION: No mammographic evidence of malignancy. Final assessment of breast composition BIRAD classification (B) There arescattered areas of fibroglandular density. BIRAD 2 - Benign Findings, Routine Yearly Mammographic Follow-up recommended. 10-15% of cancers are not identified by mammography. This usually occurs whenthe mass is of the same radiographic density as the surrounding breast tissue,emphasizing the importance of breast self examination (BSE) and physicalexamination. A normal mammogram should not delay biopsy if a suspicious mass orabnormal findings are present upon physical examination. Electronically signed in PS360 by: Kandis Katz M.D. 09/11/2020 10:56 EDT Name Value Range Interpretation Code Description Data Karolina rce(s) Supporting Document(s) ID Date Data Source [id number] 09/11/2020 10:07:00 AM EDT [facility] DATE OF EXAMINATION: 09/11/2020 9:[address] HISTORY: Long-term history of tobacco use TECHNIQUE: This CT exam was performed using the following dose reduction techniques:automatic exposure control, adjustment of mA and/or kV according to the patientsize, and use of iterative reconstruction technique. Standard contiguous axial spiral imaging was obtained from lung apices to thelung bases with no intravenous contrast administration and with coronalreformatting. FINDINGS: There is no lymphadenopathy, pleural or pericardial effusions. There is noaxillary lymphadenopathy. Adrenal glands appear normal. Patient is status postcholecystectomy. Moderate centrilobular emphysematous changes of both lungs areidentified. There is a 2 mm nodule in the lateral segment of right middle lobeand a 2 mm pleural-based nodule in the posterior aspect of the right lower lobe.1 mm noncalcified nodule is seen in the left lower lobe. IMPRESSION: Moderate centrilobular emphysematous changes of both lungs. 2 noncalcifiednodules within the right lung and one in the left lower lobe warrants closemonitoring Lung BI-RAD Category 3 - Probably Benign NCCN guidelines recommend interval short-term diagnostic LDCT (3,6,12,24months). Electronically signed in PS360 by: Kandis Katz M.D. 09/11/2020 10:02 EDT Name Value Range Interpretation Code Description Data Karolina rce(s) Supporting Document(s) ID Date Data Source [id number] 09/12/2020 08:09:00 AM EDT [facility] Name Value Range Interpretation Code Description Data Karolina rce(s) Supporting Document(s) VITAMIN D, 25-HYDROXY 75.4 ng/mL 30.0-100.0 [facility] Vitamin D deficiency has been defined by the [place] of[place]icine and an Endocrine Society practice guideline as alevel of serum 25-OH vitamin D less than 20 ng/mL (1,2).The Endocrine Society went on to further define vitamin Dinsufficiency as a level between 21 and 29 ng/mL (2).1. IOM ([place] of Medicine). 2010. Dietary reference intakes for calcium and D. [place]: The National Academies Press.2. Rosaura Cantrell, Del GONZALEZ, et al. Evaluation, treatment, and prevention of vitamin D deficiency: an Endocrine Society clinical practice guideline. JCEM. 2010; 96(7):1911- 30.Performed at: RN - [facility] [place] [id number] Director: Milagros Zaidi MD, Phone: [phone] ID Date Data Source [id number] 09/12/2020 08:07:00 AM EDT [facility] Name Value Range Interpretation Code Description Data Karolina rce(s) Supporting Document(s) Vitamin D, 25-Hydroxy 75.4 ng/mL 30.0-100.0 [facility] Vitamin D deficiency has been defined by the [place] of[place] and an Endocrine Society practice guideline as alevel of serum 25-OH vitamin D less than 20 ng/mL (1,2).The Endocrine Society went on to further define vitamin Dinsufficiency as a level between 21 and 29 ng/mL (2).1. IOM ([place] of [employer]). 2010. Dietary reference intakes for calcium and D. [place]: The National Academies Press.2. Rosaura Cantrell, Del GONZALEZ, et al. Evaluation, treatment, and prevention of vitamin D deficiency: an Endocrine Society clinical practice guideline. JCEM. 2010; 96(7):1911-30. ID Date Data Source [id number] 09/11/2020 11:14:00 AM EDT [facility] Name Value Range Interpretation Code Description Data Karolina rce(s) Supporting Document(s) CHOLESTEROL 153 mg/dL 0-200 [facility] TRIGLYCERIDES 67 mg/dL 0-150 [facility] LDL CHOLESTEROL 79 mg/dL 0-100 [facility] HDL CHOLESTEROL 61 mg/dL 40-60 H [facility] CHOL/HDL RATIO 2.5 0.0-5.0 [facility] ID Date Data Source [id number] 09/11/2020 11:14:00 AM EDT [facility] Name Value Range Interpretation Code Description Data Karolina rce(s) Supporting Document(s) GLUCOSE 90 mg/dL 74-106 [facility] BLOOD UREA NITROGEN 7 mg/dL 7-18 [facility] ital CREATININE 1.18 mg/dL 0.6-1.0 H [facility] SODIUM 145 mmol/L 136-145 [facility] POTASSIUM 3.9 mmol/L 3.5-5.1 [facility] CHLORIDE 107 mmol/L 98-107 [facility] CO2 28 mmol/L 21-32 [facility] CALCIUM 9.1 mg/dL 8.5-10.1 [facility] ANION GAP 10.0 mmol/L 5-12 [facility] GLOMERULAR FILTRATION RATE 47 mL/min [facility] GFR IS CALCULATED IN mL/min/1.73m2 AYAH L FUNCTION: >90MILDLY DECREASED: 60-89MILDY TO MODERATELY DECREASED: 45-59 MODERATELY TO SEVERELY DECREASED: 30-44SEVERELY DECREASED: 15-29RENAL FAILURE: <15 AST 12 U/L 15-37 [facility] ALT 17 U/L 12-78 [facility] ALKALINE PHOSPHATASE 103 U/L 46-116 [facility] pital TOTAL BILIRUBIN 0.4 mg/dL 0.2-1.0 [facility] TOTAL PROTEIN 6.9 g/dl 6.4-8.2 [facility] ALBUMIN 3.8 gm/dL 3.4-5.0 [facility] ID Date Data Source [id number] 09/11/2020 11:00:00 AM EDT [facility] Name Value Range Interpretation Code Description Data Karolina rce(s) Supporting Document(s) FREE T4 1.2 ng/dL 0.76-1.46 [facility] ID Date Data Source [id number] 09/11/2020 11:00:00 AM T [facility] Name Value Range Interpretation Code Description Data Karolina rce(s) Supporting Document(s) TSH 1.503 uIU/mL 0.360-3.740 [facility] ID Date Data Source [id number] 09/11/2020 10:17:00 AM EDT [facility] Name Value Range Interpretation Code Description Data Karolina rce(s) Supporting Document(s) WHITE BLOOD COUNT 5.1 K/mm3 4.0-10.0 [facility] 4.10 M/mm3 4.00-5.50 [facility] HEMOGLOBIN 12.9 gm/dL 12.0-16.0 [facility] HEMATOCRIT 38.5 % 36.0-48.8 [facility] MEAN CELL VOLUME 93.9 fl 80-96 [facility] MEAN CORPUSCULAR HEMOGLOBIN 31.5 pg 27.0-31.0 [facility] [facility] MEAN CORPUSCULAR HGB CONC 33.5 g/dl 32.0-36.0 [facility] RED CELL DISTRIBUTION WIDTH 12.7 % 10.0-14.5 [facility] PLATELET COUNT 372 K/mm3 172-450 [facility] MEAN PLATELET VOLUME 10.0 fl 9.0-13.0 [facility] pital GRAN % 47.1 % 50-80.0 L [facility] IG% 0.2 % 0.0-0.2 [facility] LYMPH % 39.4 % 25.0-50.0 [facility] MONO % 8.1 % 2.0-10.0 [facility] EOS % 5.0 % 0-5.0 [facility] BASO % 0.2 % 0.0-2.0 [facility] GRAN # 2.4 K/mm3 2.0-8.00 [facility] IG# 0.0 K/mm3 0.0-0.2 [facility] LYMPH # 2.0 K/mm3 1.0-5.0 [facility] MONO # 0.4 K/mm3 0.10-1.20 [facility] EOS # 0.3 K/mm3 0.0-0.5 [facility] BASO # 0.0 K/mm3 0.0-0.2 [facility] ID Date Data Source [id number] 08/10/2020 04:33:00 PM EDT [facility] Patient: JOSELIN MARTINEZ Dominique n Report - [facility], [facility].VisitID: [id number] [place] [address] [phone], FRegist[facility]idalhealth [facility] Date/Time: 08/10/2020 08:42 Weight:87.5 kg (S). Height/Length:60 inches (S). BMI:37.7 PAST HISTORYProblems:COPD - Chronic Obstructive Pulmonary Disease.Chronic Venous Insufficiency.Anxiety disorder.Mukherjee's Cyst.Arthritis.Degenerative Joint Disease.Lumbar Strain.Hypothyroidism.Lung Disease.Encephalopathy.Depression.Gastroesophageal Reflux Disease.Hyperlipidemia.Hypercholesterolemia. Additional Surger ies:Bladder Suspension.Brain surgery .Bunion removal.Cholecystectomy.Hysterectomy.Oophorectomy.Tubal Ligation.Tubal ligation- unilateral . Medications:Albuterol Sulfate HFA Inhalation (Aerosol Solution 108 (90 Base) mcg/act), as needed, last dose Friday.Aspirin Oral (Tablet Chewable 81 mg) 1 tablet, last dose 08/10/2020.Benadryl Allergy Oral, daily at bedtime, last dose 08/09/2020.BusPIRone HCl Oral (Tablet 30 mg), 2x a day, last dose 08/10/2020.Ipratropium Harviell Inhalation 1 unit dose, as needed, last dose Friday.Levothyroxine Sodium Oral 88 mcg, daily, last dose 08/10/2020.Omeprazole Oral 20 mg, daily, last dose 08/09/2020.PROzac Oral 60mg, daily, last dose 08/09/2020.TraZODone HCl Oral 100 mg, daily at bedtime, last dose 08/09/2020. Allergies:Hornets.(swelling). FAMILY HISTORYNegative. No significant family medical history. (Electronically signed by Destin Jarquin 08/10/2020 16:19) Name Value Range Interpretation Code Description Data Karolina rce(s) Supporting Document(s) ID Date Data Source [id number] 05/19/2020 10:55:00 PM EDT [facility] l LUMBAR SPINE DATE OF EXAMINATION: 021 16:55 EDT SPINE LUMBAR COMP INDICATION: Pain COMPARISON: 02/11/2019 TECHNIQUE: AP, lateral, bilateral oblique, and spot views of the lumbar spinewere obtained . FINDINGS: No acute fracture or dislocation. There is degenerative disc spacenarrowing at T12-L1 and L5-S1. Small osteophytes are visualized at multiplelevels. No evidence of pars defect or spondylolisthesis. Facet degenerativeatherosclerotic changes are visualized L4-L5 and L5-S1 IMPRESSION: Degenerative changes, no acute Electronically signed in PS360 by: Adriana Corrales M.D. 05/19/2020 22:50 EDT Name Value Range Interpretation Code Description Data [facility] rce(s) Supporting Document(s) ID Date Data Source [id number] 05/18/2020 06:39:00 PM EDT [facility] Patient: JOSELIN MARTINEZ Observatio n Report - [facility].VisitID: [id number] [place] [address] [phone], FRegistration Date/Time: 05/18/2020 15:40 Weight:81.1 kg (S). Height/Length:62 inches (S). BMI:32.7 PAST HISTORYProblems:Depression.Degenerative Joint Disease.Encephalopathy.Hypercholesterolemia. Additional Surgeries:Bladder Suspension.Brain surgery .Bunion removal.Cholecystectomy.Hysterectomy.Oophorectomy.Tubal Ligation.Tubal ligation- unilateral . Medications:Aspirin Oral (Tablet Chewable 81 mg) 1 tablet, last dose 05/18/2020.Benadryl Allergy Oral, daily at bedtime, last dose 05/17/2020.BusPIRone HCl Oral (Tablet 30 mg), 2x a day, last dose 05/18/2020.Ipratropium Harviell Inhalation 1 unit dose, as needed, last dose months ago.Levothyroxine Sodium Oral 88 mcg, daily, last dose 05/18/2020.Omeprazole Oral 20 mg, daily, last dose 05/18/2020.TraZODone HCl Oral 100 mg, daily at bedtime, last dose 05/17/2020.PROzac Oral 60mg, daily, last dose 05/17/2020.Albuterol Sulfate HFA Inhalation (Aerosol Solution 108 (90 Base) mcg/act), as needed, last dose months ago. Allergies:Hornets.(swelling). FAMILY HISTORYNo significant family medical history. (Electronically signed by Destin Quevedo 05/18/2020 18:25) Name Value Range Interpretation Code Description Data Karolina rce(s) Supporting Document(s) ID Date Data Source [id number] 02/08/2020 05:58:00 PM [facility] Patient: JOSELIN MARTINEZ Report - [facility].VisitID: [id number] [place] [address] [phone], FRegistration Date/Time: 02/08/2020 13:14 Weight:88.4 kg (S). Height/Length:60 inches (S). BMI:38.1 PAST HISTORYProblems:Chronic Venous Insufficiency.COPD - Chronic Obstructive Pulmonary Disease.Arthritis.Anxiety disorder.Hypothyroidism.Hyperlipidemia.Lung Disease.Hypercholesterolemia.Depression.Degenerative Joint Disease.Gastroesophageal Reflux Disease.Encephalopathy. Additional Surgeries:Bladder Suspension.Brain surgery .Bunion removal.Cholecystectomy.Hysterectomy.Oophorectomy.Tubal Ligation.Tubal ligation- unilateral . Medications:Ipratropium Harviell Inhalation.Albuterol Sulfate HFA Inhalation.Omeprazole Oral 20 mg, daily, last dose today.ARIPiprazole Oral 2mg, last dose unk.Aspirin Oral (Tablet Chewable 81 mg) 1 tablet, last dose this am.Benadryl Allergy Oral, daily at bedtime, last dose last night .BusPIRone HCl Oral (Tablet 30 mg), 2x a day, last dose this am.FLUoxetine HCl Oral 20 mg, daily, last dose this am.Levothyroxine Sodium Oral 88 mcg, daily, last dose this am.TraZODone HCl Oral 100 mg, daily at bedtime, last dose last night. Allergies:Hornets. FAMILY HISTORYSister(s): Heart Disease. INSTRUCTIONSYour Current Medications: Your current home medications have been reviewed. CONTINUE TAKING THE FOLLOWING MEDICATIONS:Albuterol Sulfate HFA Inhalation. ARIPiprazole Oral : 2mg, Last: unk. Aspirin Oral : Tablet Chewable 81 mg, 1 tablet, Last: this am. Benadryl Allergy Oral : daily, Last: last night, at bedtime. BusPIRone HCl Oral : Tablet 30 mg, 2x a day, Last: this am. FLUoxetine HCl Oral : 20 mg daily, Last: this am. Ipratropium Harviell Inhalation. Levothyroxine Sodium Oral : 88 mcg daily, Last: this am. Omeprazole Oral : 20 mg daily, Last: today. TraZODone HCl Oral : 100 mg daily, Last: last night, at bedtime. (Electronically signed by Destin Isaacs 02/08/2020 17:53) Name Value Range Interpretation Code Description Data [facility] rce(s) Supporting Document(s) ID Date Data Source [id number] 02/08/2020 03:39:00 PM [facility] l TSYSORDER [id number] Name Value Range Interpretation Code Description Data [facility] rce(s) Supporting Document(s) MAGNESIUM 2.1 mg/dL 1.8-2.4 [facility] ID Date Data Source [id number] 02/08/2020 03:39:00 PM [facility] l TSYSORDER [id number] Name Value Range Interpretation Code Description Data [facility](s) Supporting Document(s) GLUCOSE 96 mg/dL 74-106 [facility] BLOOD UREA NITROGEN 6 mg/dL 7-18 L [facility] ital CREATININE 1.2 mg/dL 0.6-1.0 H [facility] SODIUM 142 mmol/L 136-145 [facility] POTASSIUM 4.1 mmol/L 3.5-5.1 [facility] CHLORIDE 104 mmol/L 98-107 [facility] CO2 31 mmol/L 21-32 [facility] CALCIUM 9.3 mg/dL 8.5-10.1 [facility] ANION GAP 7.0 mmol/L 5-12 [facility] GLOMERULAR FILTRATION RATE 46 mL/min [facility] GFR IS CALCULATED IN mL/min/1.73m2 AYAH L FUNCTION: >90MILDLY DECREASED: 60-89MILDY TO MODERATELY DECREASED: 45-59 MODERATELY TO SEVERELY DECREASED: 30-44SEVERELY DECREASED: 15-29RENAL FAILURE: <15 AST 13 U/L 15-37 [facility] ALT 16 U/L 12-78 [facility] ALKALINE PHOSPHATASE 110 U/L 46-116 [facility] pital TOTAL BILIRUBIN 0.3 mg/dL 0.2-1.0 [facility] TOTAL PROTEIN 7.1 g/dl 6.4-8.2 [facility] ALBUMIN 3.6 gm/dL 3.4-5.0 [facility] ID Date Data Source [id number] 02/08/2020 03:32:00 PM [facility] yash TSYSORDER [id number] Name Value Range Interpretation Code Description Data Karolina rce(s) Supporting Document(s) COVID-19 NEGATIVE NEGATIVE [facility] Negative results should be treated as pr esumptive and, ifinconsistent with clinical signs and symptoms or necessaryfor patient management, should be tested with differentauthorized or cleared molecular tests.Negative results do not preclude SARS-CoV-2 infection andshould not be used as the sole basis for patient managementdecisions.This is a rapid molecular in vitro diagnostic test utilizingan isothermal nucleic acid amplification technology intendedfor the qualitative detection of nucleic acid from the SARS-CoV-2 viral RNA in direct nasal, nasopharyngeal orthroat swabs from individuals who are suspected of COVID-19.Results are for the indentification of SARS-CoV-2 RNA. FzvGVWP-SjZ-2 RNA is generally detectable in respiratorysamples during the actue phase of infection. ID Date Data Source [id number] 02/08/2020 03:30:00 PM [facility] l TSYSORDER [id number] Name Value Range Interpretation Code Description Data Karolina rce(s) Supporting Document(s) MONOSCREEN NEGATIVE NEGATIVE [facility] ID Date Data Source [id number] 02/08/2020 03:28:00 PM [facility] l TSYSORDER [id number] Name Value Range Interpretation Code Description Data Karolina rce(s) Supporting Document(s) WHITE BLOOD COUNT 6.1 K/mm3 4.0-10.0 [facility] al RED BLOOD COUNT 4.08 M/mm3 4.00-5.50 [facility] HEMOGLOBIN 12.6 gm/dL 12.0-16.0 [facility] HEMATOCRIT 38.3 % 36.0-48.8 [facility] MEAN CELL VOLUME 93.9 fl 80-96 [facility] MEAN CORPUSCULAR HEMOGLOBIN 30.9 pg 27.0-31.0 [facility] MEAN CORPUSCULAR HGB CONC 32.9 g/dl 32.0-36.0 [facility] RED CELL DISTRIBUTION WIDTH 13.3 % 10.0-14.5 [facility] PLATELET COUNT 361 K/mm3 172-450 [facility] MEAN PLATELET VOLUME 10.2 fl 9.0-13.0 [facility] pital GRAN % 62.4 % 50-80.0 [facility] IG% 0.0 % 0.0-0.2 [facility] LYMPH % 28.2 % 25.0-50.0 [facility] MONO % 6.4 % 2.0-10.0 [facility] EOS % 2.8 % 0-5.0 [facility] BASO % 0.2 % 0.0-2.0 [facility] GRAN # 3.8 K/mm3 2.0-8.00 [facility] IG# 0.0 K/mm3 0.0-0.2 [facility] LYMPH # 1.7 K/mm3 1.0-5.0 [facility] MONO # 0.4 K/mm3 0.10-1.20 [facility] EOS # 0.2 K/mm3 0.0-0.5 [facility] BASO # 0.0 K/mm3 0.0-0.2 [facility] ID Date Data Source [id number] 02/08/2020 03:05:00 PM EST [facility] Name Value Range Interpretation Code Description Data Karolina rce(s) Supporting Document(s) COVID-19 [facility] This lab was ordered by [facility] Lab and reported by [facility] Laboratory. ID Date Data Source [id number] 02/08/2020 03:44:00 PM EST [facility] Name Value Range Interpretation Code Description Data Karolina rce(s) Supporting Document(s) FREE T4 1.07 ng/dL 0.76-1.46 [facility] ID Date Data Source [id number] 02/08/2020 03:44:00 PM EST [facility] Name Value Range Interpretation Code Description Data Karolina rce(s) Supporting Document(s) TSH 1.27 uIU/mL 0.36-3.74 [facility] ID Date Data Source [id number] 02/08/2020 03:44:00 PM EST [facility] Name Value Range Interpretation Code Description Data Karolina rce(s) Supporting Document(s) DDIMER 0.57 mg/LFEU 0.19-0.60 [facility] ID Date Data Source [id number] 02/08/2020 03:44:00 PM EST [facility] Name Value Range Interpretation Code Description Data Karolina rce(s) Supporting Document(s) PARTIAL THROMBOPLASTIN TIME 23.0 SECONDS 21.2-27.3 [facility] ID Date Data Source [id number] 02/08/2020 03:44:00 PM EST [facility] Name Value Range Interpretation Code Description Data Karolina rce(s) Supporting Document(s) PROTHROMBIN TIME (PATIENT) 10.2 SECONDS 9.1-11.6 [facility] INR 0.98 0.87-1.06 [facility] ID Date Data Source [id number] 02/08/2020 03:39:00 PM EST [facility] TSYSORDER [id number] Name Value Range Interpretation Code Description Data Karolina rce(s) Supporting Document(s) LIPASE 128 U/L 73-393 [facility] ID Date Data Source [id number] 02/08/2020 03:39:00 PM EST [facility] TSYSORDER [id number] Name Value Range Interpretation Code Description Data Karolina rce(s) Supporting Document(s) TROPONIN I < 0.017 ng/mL 0.0-0.056 [facility] ID Date Data Source [id number] 02/08/2020 02:57:00 PM EST [facility] DATE OF EXAMINATION: 02/08/2020 14:00 EST CHEST 1 VIEW HISTORY: Shortness of breath TECHNIQUE: Single frontal radiograph of chest FINDINGS: No evidence of focal consolidation, pneumothorax or large pleural effusion.Lungs are clear. Mediastinal structures are unremarkable. No aggressive osseouslesions. IMPRESSION: No focal consolidation. Electronically signed in PS360 by: Kandis Katz M.D. 02/08/2020 14:51 EST Name Value Range Interpretation Code Description Data Karolina rce(s) Supporting Document(s) ID Date Data Source [id number] 02/08/2020 03:54:00 PM EST [facility] Name Value Range Interpretation Code Description Data Karolina rce(s) Supporting Document(s) STREP A NEGATIVE NEGATIVE [facility] This is a rapid molecular in vitro diagn ostic test utilizingisothermal nucleic acid amplification technology for thequalitative detection of Group A Streptococcusbacterial nucleic acid.Additional follow up testing using the culture method isrequired if the result is negative and clinical symptomspersist, or in the event of an acute rheumatic feveroutbreak. ID Date Data Source [id number] 02/08/2020 03:54:00 PM EST [facility] Name Value Range Interpretation Code Description Data Karolina rce(s) Supporting Document(s) INFLUENZA A NEGATIVE NEGATIVE [facility] INFLUENZA B NEGATIVE NEGATIVE [facility] This is a rapid molecular in vitro diagn ostic test utilizingan isothermal nucleaic acid amplification technology for thequalitative detection and discrimination of influenza A andB viral RNA. Negative results do not preclude influenzavirus infection and should not be used as the sole basis fordiagnosis, treatment or other patient management decisions. ID Date Data Source [id number] 11/22/2019 02:50:00 PM EDT [facility] DATE OF EXAMINATION: 11/22/2019 14:29 EDT TECHNIQUE: 4 views left knee were obtained. HISTORY: Pain FINDINGS: Bones are well-mineralized and properly aligned. Mild osteoarthritis of medialknee compartment is noted. There is no fracture or dislocation or jointeffusion. IMPRESSION: Mild osteoarthritis of medial knee compartment. Electronically signed in PS360 by: Kandis Katz M.D. 11/22/2019 14:45 EDT Name Value Range Interpretation Code Description Data [facility]) ID Date Data Source [id number] 11/22/2019 02:50:00 PM EDT [facility] l DATE OF EXAMINATION: 11/22/2019 14:29 EDT TECHNIQUE: 4 views right knee were obtained. HISTORY: Pain FINDINGS: Bones are well-mineralized and properly aligned. Mild to moderate osteoarthritisof medial knee compartment is noted. There is no fracture or dislocation. IMPRESSION: Mild to moderate osteoarthritis of medial knee compartment. Electronically signed in PS360 by: Kandis Katz M.D. 11/22/2019 14:44 EDT Name Value Range Interpretation Code Description Data Karolina rce(s) Supporting Document(s) ID Date Data Source KNEE COMPLETE 11/22/2019 05:09:40 AM EDT eCW1 ([facility]) Name Value Range Interpretation Code Description Data Karolina rce(s) Supporting Document(s) KNEE COMPLETE eCW1 ([facility]) ID Date Data Source PAP REFLEX HPV 11/09/2019 11:09:34 AM EDT [facility] Name Value Range Interpretation Code Description Data Karolina rce(s) Supporting Document(s) Comment REFLEX PAP eCW1 ([facility]) Comment PERFORMED BY: eCW1 ([facility]) Comment DIAGNOSIS: eCW1 ([facility]) Comment SPECIMEN ADEQUACY: eCW1 ([facility]) . . eCW1 ([facility]) Comment NOTE: eCW1 ([facility]) ID Date Data Source [id number] 11/03/2019 04:16:00 PM EDT [facility] Specimen Comment: Source.............Cer vix;EndocervixSpecimen Comment: No. of containers..01 ThinPrep Vial Name Value Range Interpretation Code Description Data Karolina rce(s) Supporting Document(s) REFLEX PAP Comment . [facility] The HPV DNA reflex criteria were not met with this specimenresult therefore, no HPV testing was performed.Performed at: [address] [id number] Director: Delmer Rosas MD, Phone: [phone] DIAGNOSIS: Comment . [facility] NEGATIVE FOR INTRAEPITHELIAL LESION OR M ALIGNANCY. SPECIMEN ADEQUACY: Comment . [facility] Satisfactory for evaluation. Endocervic al and/or squamous metaplasticcells (endocervical component) are present. PERFORMED BY: Comment . [facility] Ryann Johnson Canopy Stringer (ASCP) . . . [facility] NOTE: Comment . [facility] The Pap smear is a screening test design ed to aid in thedetection of premalignant and malignant conditions of theuterine cervix. It is not a diagnostic procedure andshould not be used as the sole means of detecting cervicalcancer. Both false-positive and false-negative reports dooccur. ID Date Data Source [id number] 11/06/2019 06:05:00 AM EDT [facility] Name Value Range Interpretation Code Description Data Karolina rce(s) Supporting Document(s) Pap Lb, rfx HPV all pth [facility] p TESTS RESULT FLAG UNI TS REF RANGE LAB Clinician Provided Cytology Information Source.............Cervix;Endocervix No. of containers..01 ThinPrep VialDIAGNOSIS: 01 NEGATIVE FOR INTRAEPITHELIAL LESION OR MALIGNANCY.Specimen adequacy: 01 Satisfactory for evaluation. Endocervical and/or squamous metaplastic cells (endocervical component) are present.Performed by: 01 Ryann Johnson Canopy Stringer ([facility]). 01Note: Note 01 The Pap smear is a screening test designed to aid in the detection of premalignant and malignant conditions of the uterine cervix. It is not a diagnostic procedure and should not be used as the sole means of detecting cervical cancer. Both false-positive and false-negative reports do occur. . 01 The HPV DNA reflex criteria were not met with this specimen result therefore, no HPV testing was performed. FLAG LEGEND: L-Low Normal,H-High Normal,LL-Alert Low,HH-Alert High <-Panic Low,>-Panic High,A-Abnormal,AA-Critical Abnormal Performed at:[address] [id number] Delmer Rosas MD, ID Date Data Source [id number] 10/30/2019 09:32:00 PM EDT [facility] DATE OF EXAMINATION: 10/30/2019 19:16 EDT TECHNIQUE: 2 views of the right hip were obtained. HISTORY: Pain FINDINGS: No acute fracture or dislocation. Mild arthritic changes including increasedsclerosis to the acetabular roof with joint space narrowing and marginalspurring. Surrounding soft tissues are unremarkable. IMPRESSION: Mild degenerative changes.No evidence of acute fracture or dislocation. Electronically signed in PS360 by: Doyle Elliott M.D. 10/30/2019 21:27 EDT Name Value Range Interpretation Code Description Data [facility](s) Supporting Document(s) ID Date Data Source [id number] 10/30/2019 09:31:00 PM EDT [facility] DATE OF EXAMINATION: 10/30/2019 19:16 EDT TECHNIQUE: 2 views of the pelvis and right hip were obtained. HISTORY: Pain FINDINGS: No pelvic fracture. If joints demonstrate mild degenerative changes includingsclerosis to the acetabular roof with joint space narrowing and marginalacetabular spurring. Surrounding soft tissues are normal. IMPRESSION:Mild degenerative changes. Electronically signed in PS360 by: Doyle Elliott M.D. 10/30/2019 21:26 EDT Name Value Range Interpretation Code Description Data [facility] ID Date Data Source [id number] 10/30/2019 08:43:00 PM EDT [facility] Patient: JOSELIN MARTINEZ Observatio n Report - [facility].VisitID: [id number] [place] [address] [phone], FRegistration Date/Time: 10/30/2019 19:01 Weight:90.7 kg (S). Height/Length:60 inches (S). BMI:39.1 PAST HISTORYMedications:ARIPiprazole Oral 2mg, last dose hasnt taken yet.Aspirin Oral (Tablet Chewable 81 mg) 1 tablet, last dose 04/16/2019.Benadryl Allergy Oral, daily at bedtime, last dose 04/15/2019.BusPIRone HCl Oral (Tablet 30 mg), 2x a day, last dose 04/16/2019.Cetirizine HCl Oral 10 mg, daily, last dose 04/16/2019.FLUoxetine HCl Oral 20 mg, daily, last dose 04/16/2019.Levothyroxine Sodium Oral 88 mcg, daily, last dose 04/16/2019.PriLOSEC Oral 20 mg, daily at bedtime, last dose 04/15/2019.TraZODone HCl Oral 100 mg, daily at bedtime, last dose 04/15/2019. Allergies:Hornets. FAMILY HISTORYNo significant family medical history. (Electronically signed by Adriana Lawson MD 10/30/2019 20:29) Name Value Range Interpretation Code Description Data Karolina rce(s) Supporting Document(s) ID Date Data Source [id number] 10/30/2019 08:30:00 PM EDT [facility] l TSYSORDER [id number] Name Value Range Interpretation Code Description Data Karolina rce(s) Supporting Document(s) URINE RBC 0-2 /hpf 0-3 [facility] URINE EPITHELIAL CELLS 3+ /hpf 0 [facility]ital URINE BACTERIA 1+ NONE SEEN [facility] ID Date Data Source [id number] 10/30/2019 08:24:00 PM EDT [facility] ital TSYSORDER [id number] Name Value Range Interpretation Code Description Data Karolina rce(s) Supporting Document(s) URINE COLOR. YELLOW [facility] URINE APPEARANCE CLEAR [facility] l SPECIFIC GRAVITY,URINE <= 1.005 1.001-1.035 [facility] URINE LEUKOCYTE ESTERASE NEGATIVE NEGATIVE [facility] URINE NITRATE NEGATIVE NEGATIVE [facility] PH,URINE 5.5 5.0-9.0 [facility] URINE PROTEIN NEGATIVE mg/dL [facility]IVE [facility] UR[facility] GLUCOSE (UA) NEGATIVE mg/dL NEGATIVE [facility] URINE KETONE NEGATIVE mg/dL [facility] UROBILINOGEN NORMAL(0.2-1) mg/dL 0-1 R [facility] URINE BILIRUBIN NEGATIVE NEGATIVE [facility] URINE BLOOD TRACE NEGATIVE H [facility] Procedure Social History Code Duration Value Status Description Data Source(s ) Smoking 11/08/2020 12:00:00 AM EDT Former Smoker completed Former Smoker eCW1 ([facility]) Smoking 11/08/2020 12:00:00 AM EDT Former Smoker completed Former Smoker eCW1 ([facility]) Smoking 11/08/2020 12:00:00 AM EDT Former Smoker completed Former Smoker eCW1 ([facility]) Smoking 08/31/2020 12:00:00 AM EDT Former Smoker completed Former Smoker eCW1 ([facility]) Smoking 08/31/2020 12:00:00 AM EDT Former Smoker completed Former Smoker eCW1 ([facility]) Smoking 07/03/2020 12:00:00 AM EDT Former Smoker completed Former Smoker eCW1 ([facility]) Smoking 07/03/2020 12:00:00 AM EDT Former Smoker completed Former Smoker eCW1 ([facility]) Smoking 07/03/2020 12:00:00 AM EDT Former Smoker completed Former Smoker eCW1 ([facility]) Smoking 05/19/2020 12:00:00 AM EDT Never Smoker completed Never S moker eCW1 ([facility]) Smoking 05/19/2020 12:00:00 AM EDT Never Smoker completed Never S moker eCW1 ([facility]) Smoking 05/19/2020 12:00:00 AM EDT Never Smoker completed Never S moker eCW1 ([facility]) Smoking 02/09/2020 12:00:00 AM EST Never Smoker completed Never S moker eCW1 ([facility]) Smoking 12/06/2019 12:00:00 AM EDT Never Smoker completed Never S moker eCW1 ([facility]) Smoking 12/06/2019 12:00:00 AM EDT Never Smoker completed Never S moker eCW1 ([facility]) Smoking 12/06/2019 12:00:00 AM EDT Never Smoker completed Never S moker eCW1 ([facility]) Smoking 12/06/2019 12:00:00 AM EDT Never Smoker completed Never S moker eCW1 ([facility]) Smoking 11/22/2019 12:00:00 AM EDT Never Smoker completed Never S moker eCW1 ([facility]) Smoking 11/22/2019 12:00:00 AM EDT Never Smoker completed Never S moker eCW1 ([facility]) Smoking 11/22/2019 12:00:00 AM EDT Never Smoker completed Never S moker eCW1 ([facility]) Smoking 11/01/2019 12:00:00 AM EDT Never Smoker completed Never S halleyker eCW1 ([facility]) Vital Signs ID Date Data Source UNK Name Value Range Interpretation Code Description Data Source(s) Body height 60.0 [in_i] 60.0 [in_i] eCW1 ([facility]) Body weight 187.8 [lb_av] 187.8 [lb_av] eCW1 ([facility]) Body mass index (BMI) [Ratio] 36.67 kg/m2 36.67 kg/m2 eCW1 ([facility]) Heart rate 64 /min 64 /min eCW1 ([facility]) Respiratory rate 16 /min 16 /min eCW1 ([facility]) Oxygen saturation in Arterial blood by Pulse oximetry 96 % 96 % eCW1 ([facility]) Body height 60.0 [in_i] 60.0 [in_i] eCW1 ([facility]) Body weight 187.8 [lb_av] 187.8 [lb_av] eCW1 ([facility]) Body mass index (BMI) [Ratio] 36.67 kg/m2 36.67 kg/m2 eCW1 ([facility]) Heart rate 64 /min 64 /min eCW1 ([facility]) Respiratory rate 16 /min 16 /min eCW1 ([facility]) Oxygen saturation in Arterial blood by Pulse oximetry 96 % 96 % eCW1 ([facility]) Body height 60.0 [in_i] 60.0 [in_i] eCW1 ([facility]) Body weight 190 [lb_av] 190 [lb_av] eCW1 ([facility]) Body mass index (BMI) [Ratio] 37.10 kg/m2 37.10 kg/m2 eCW1 ([facility]) Body temperature 98.4 [degF] 98.4 [degF] eCW1 ( [facility]) Heart rate 59 /min 59 /min eCW1 ([facility]) Respiratory rate 16 /min 16 /min eCW1 ([facility]) Oxygen saturation in Arterial blood by Pulse oximetry 96 % 96 % eCW1 ([facility]) Body height 62 [in_i] 62 [in_i] MEDENT ([facility] 5'2" Body weight 294.00 [lb_av] 294.00 [lb_av] MEDEN T ([facility] Systolic blood pressure 118 mm[Hg] 118 mm[Hg] M EDENT ([facility] Diastolic blood pressure 82 mm[Hg] 82 mm[Hg] MEDENT ([facility] Heart rate 65 /min 65 /min MEDENT ([facility] Body mass index (BMI) [Ratio] 53.8 kg/m2 53.8 k g/m2 MEDENT ([facility] Body height 60.0 [in_i] 60.0 [in_i] eCW1 ([facility]) Body weight 199.2 [lb_av] 199.2 [lb_av] eCW1 ([facility]) Body mass index (BMI) [Ratio] 38.90 kg/m2 38.90 kg/m2 eCW1 ([facility]) Body temperature 97.6 [degF] 97.6 [degF] eCW1 ( [facility]) Heart rate 62 /min 62 /min eCW1 ([facility]) Respiratory rate 16 /min 16 /min eCW1 ([facility]) Oxygen saturation in Arterial blood by Pulse oximetry 97 % 97 % eCW1 ([facility]) Body weight 199.00 [lb_av] 199.00 [lb_av] MEDEN T ([facility]) Body mass index (BMI) [Ratio] 36.4 kg/m2 36.4 k g/m2 MEDENT ([facility], ) [place] body weight 110 [lb_av] 110 [lb_av] MEDEN T ([facility]) Body weight 90.266 kg 90.266 kg [facility] Body surface area Derived from formula 1.91 m2 1.91 m2 [facility] ([facility]) Diastolic blood pressure 84 mm[Hg] 84 mm[Hg] MEDENT ([facility]) Systolic blood pressure 112 mm[Hg] 112 mm[Hg] M EDENT ([facility]) Body height 62 [in_i] 62 [in_i] [facility] ([facility]) 5'2" Body height 60.0 [in_i] 60.0 [in_i] eCW1 ([facility]) Body weight 201.2 [lb_av] 201.2 [lb_av] eCW1 ([facility]) Body mass index (BMI) [Ratio] 39.29 kg/m2 39.29 kg/m2 eCW1 ([facility]) Body temperature 97.6 [degF] 97.6 [degF] eCW1 ( [facility]) Heart rate 76 /min 76 /min eCW1 ([facility]) Respiratory rate 18 /min 18 /min eCW1 ([facility]) Oxygen saturation in Arterial blood by Pulse oximetry 98 % 98 % eCW1 ([facility]) Body temperature 96.8 [degF] 96.8 [degF] MEDENT ([facility]) Body height 60.0 [in_i] 60.0 [in_i] eCW1 ([facility]) Body weight 195 [lb_av] 195 [lb_av] eCW1 ([facility]) Body mass index (BMI) [Ratio] 38.08 kg/m2 38.08 kg/m2 eCW1 ([facility]) Body temperature 97.1 [degF] 97.1 [degF] eCW1 ( [facility]) Heart rate 64 /min 64 /min eCW1 ([facility]) Respiratory rate 16 /min 16 /min eCW1 ([facility]) Oxygen saturation in Arterial blood by Pulse oximetry 98 % 98 % eCW1 ([facility]) Body height 60.0 [in_i] 60.0 [in_i] eCW1 ([facility]) Body temperature 97.8 [degF] 97.8 [degF] eCW1 ( [facility]) Body temperature 96.8 [degF] 96.8 [degF] MEDENT ([facility]) Body mass index (BMI) [Ratio] 28.5 kg/m2 28.5 k g/m2 MEDENT ([facility]) Body height 70 [in_i] 70 [in_i] MEDENT ([facility]) 5'10" Body weight 198.50 [lb_av] 198.50 [lb_av] MEDEN T ([facility]) Body height 60.0 [in_i] 60.0 [in_i] eCW1 ([facility]) Body weight 200.4 [lb_av] 200.4 [lb_av] eCW1 ([facility]) Body mass index (BMI) [Ratio] 39.13 kg/m2 39.13 kg/m2 eCW1 ([facility]) Heart rate 78 /min 78 /min eCW1 ([facility]) Respiratory rate 18 /min 18 /min eCW1 ([facility]) Oxygen saturation in Arterial blood by Pulse oximetry 96 % 96 % eCW1 ([facility]) Body height 60.0 [in_i] 60.0 [in_i] eCW1 ([facility]) Body weight 202.4 [lb_av] 202.4 [lb_av] eCW1 ([facility]) Body mass index (BMI) [Ratio] 39.52 kg/m2 39.52 kg/m2 eCW1 ([facility]) Body temperature 98.4 [degF] 98.4 [degF] eCW1 ( [facility]) Heart rate 76 /min 76 /min eCW1 ([facility]) Respiratory rate 18 /min 18 /min eCW1 ([facility]) Oxygen saturation in Arterial blood by Pulse oximetry 96 % 96 % eCW1 ([facility]) Body height 60.0 [in_i] 60.0 [in_i] eCW1 ([facility]) Body weight 204.6 [lb_av] 204.6 [lb_av] eCW1 ([facility]) Body mass index (BMI) [Ratio] 39.95 kg/m2 39.95 kg/m2 eCW1 ([facility]) Heart rate 66 /min 66 /min eCW1 ([facility]) Respiratory rate 18 /min 18 /min eCW1 ([facility]) Oxygen saturation in Arterial blood by Pulse oximetry 95 % 95 % eCW1 ([facility]) Body mass index (BMI) [Ratio] 38.67 kg/m2 38.67 kg/m2 eCW1 ([facility]) Body temperature 98 [degF] 98 [degF] eCW1 ([facility]) Body height 60.0 [in_i] 60.0 [in_i] eCW1 ([facility]) Body weight 198 [lb_av] 198 [lb_av] eCW1 ([facility]) Patient Treatment Plan of Care Planned Activity Planned Date Details Description Data Source (s) Prednisone 20 MG Oral Tablet 11/08/2020 12:00:00 AM EDT eCW1 ([facility]) physical therapy eval and tx - 11/08/2020 12:00:00 AM EDT eCW1 ([facility]) tizanidine 2 MG Oral Tablet 11/08/2020 12:00:00 AM EDT eCW1 ([facility]) Naproxen 250 MG Oral Tablet 07/03/2020 12:00:00 AM EDT eCW1 ([facility]) Naproxen 250 MG Oral Tablet 07/03/2020 12:00:00 AM EDT eCW1 ([facility]) Naproxen 250 MG Oral Tablet 07/03/2020 12:00:00 AM EDT eCW1 ([facility]) physical therapy eval and tx - 05/19/2020 12:00:00 AM EDT eCW1 ([facility]) physical therapy eval and tx - 05/19/2020 12:00:00 AM EDT eCW1 ([facility]) physical therapy eval and tx - 05/19/2020 12:00:00 AM EDT eCW1 ([facility]) Fluoxetine 60 MG Oral Tablet 05/03/2020 12:00:00 AM EST eCW1 ([facility]) Fluoxetine 60 MG Oral Tablet 05/03/2020 12:00:00 AM EST eCW1 ([facility]) Fluoxetine 60 MG Oral Tablet 05/03/2020 12:00:00 AM EST eCW1 ([facility]) Fluoxetine 60 MG Oral Tablet 05/03/2020 12:00:00 AM EST eCW1 ([facility]) Fluoxetine 60 MG Oral Tablet 05/03/2020 12:00:00 AM EST eCW1 ([facility]) Fluoxetine 60 MG Oral Tablet 05/03/2020 12:00:00 AM EST eCW1 ([facility]) Wellbutrin SR 100 MG 11/22/2019 12:00:00 AM EDT eCW1 ([facility]) Wellbutrin SR 100 MG 11/22/2019 12:00:00 AM EDT eCW1 ([facility]) Wellbutrin SR 100 MG 11/22/2019 12:00:00 AM EDT eCW1 ([facility])
--- OUTSIDE RECORDS SUMMARY | 2020-12-26 16:23 | CCD ---
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 Role Phone Fortino Zhou Unavailable PROBLEMS Type Condition ICD9-CM Code [id number] Code Onset Dates Condition S tatus W/U Status Risk SNOMED Code Notes Problem Hyperlipidemia E78.5 Active confirmed 93402 [id number] Problem Hypothyroid E03.9 Active confirmed 59392374 Problem DDD (degenerative disc disease), lumbosacral M51.3 7 Active confirmed 84960379 Problem Vitamin D deficiency E55.9 Active confirmed 40033621 Problem DOMENIC (obstructive sleep apnea) G47.33 Active confirm ed 56805980 Problem Other chronic pain G89.29 Active confirmed 8 1573470 Problem Chronic obstructive pulmonary disease, unspecified COPD ty pe J44.9 Active confirmed 08895581 Problem Arthritis M19.90 Active confirmed 8205837 Problem Female bladder prolapse N81.10 Active confirmed 026318878 Problem BMI 37.0-37.9, adult Z68.37 Active confirmed 073135178 Problem Adjustment disorder with depressed mood F43.21 Active confirmed 88301104 Problem Acute right-sided low back pain with right-sided sciatica M54.41 Active confirmed 875159545 Problem Atrophic vaginitis N95.2 Active confirmed 5 8766386 Problem Sciatica, unspecified laterality M54.30 Active conf irmed 58915256 Problem Moderate episode of recurrent major depressive disorder F33.1 Active confirmed 345693779 Problem Smoking greater than 30 pack years F17.210 Activ e confirmed 38315427 Problem Obesity (BMI 30-39.9) E66.9 Active confirmed 595798542 ALLERGIES Allergen (clinical drug ingredient) Drug/Non Drug Allergy do cumented on EMR Reaction Allergy Type Onset Date Status hornets swelling Non Drug Allergy Active ENCOUNTERS from 1960 to 2020-11-22 Encounter Location Date Provider [facility] [address] [place] [address] [id number] p, 2020 Fortino Zhou Encounter for gynecological examination (general) (routine) without abnormal findings Z01.419 ; Encounter for screening mammogram for malignant neoplasm of breast Z12.31 and Sciatica, unspecified laterality M54.30 IMMUNIZATIONS Vaccine Route Administration Date Status INFLUENZA [...] Notes Start Da te End Date Status Montelukast Sodium 10 MG 1 tablet Orally Once a day for 30 day(s ) Nov, Active Omeprazole 10 MG 1 capsule 30 minutes before morning meal Orally Once a day for 90 day(s) Active Atorvastatin Calcium 20 MG 1 tablet Orally Once a day for 90 Active Symbicort 160-4.5 MCG/ACT 2 puffs Inhalation Twice a day for 90 days Active FLUoxetine HCl 60 MG 1 tablet Orally Once a day for 30 days May, Active CPAP machine and supplies G47.33 autopap with humidifi cation 5mmg-20mmhg externally Daily for 99 days Act serge predniSONE 20 MG 2 tablet Orally Once a day for 5 day(s) 0 Nov, Active Levothyroxine Sodium 75 MCG 1 tablet on an empty stoma ch in the morning Orally Once a day for 90 days Active Ventolin HFA 108 (90 Base) MCG/ACT 2 puffs as needed I nhalation every 6 hrs prn for 90 days prn Not-Taking tiZANidine HCl 2 MG 1 tablet as needed Orally Three times a day for 7 days Nov, Active physical therapy eval and tx - - - -3x per week for -6 weeks Nov, Active busPIRone HCl 30 MG 1 tablet Orally Twice a day for 30 days Apr, Active Aspir-Low 81 MG 1 tablet Orally Once a day for 30 day(s) Active traZODone HCl 150 MG 1 tablet at bedtime Orally Once a day for 3 0 days Apr, Active PROCEDURES No Information RESULTS No Results REASON FOR VISIT WWE MEDICAL (GENERAL) HISTORY Type Description Date Medical History Depression Medical History Hypothyroid Medical History GERD Medical History Anxiety- f/u Psychiatrist at [facility] Medical History Bunion- f/u Podiatry Dr. [...] Treatment Notes Treatm ent Clinical Notes Nov, Encounter for gynecological examination (general) (routine) without abnormal findings (ICD-10 - Z01.419) Contacted the patient's primary care provider who was able to see the patient immediately after her gynecological examination to evaluate her low back pain and possible sciatica. Nov, Encounter for screening mamm ogram for malignant neoplasm of breast (ICD-10 - Z12.31) Nov, Sciatica, unspecified laterality (ICD-10 - M54.3 0) Nov, Other Discussed the im portance of adequate calcium intake, exercise and self breast exam with patient. Hand out with instructions for self breast exam was offered to the patient. Recommend routine yearly exam. Patient agrees with above plan. PLAN OF TREATMENT Medication Medication Name Sig Start Date Stop Date FLUoxetine HCl 60 MG 1 tablet Orally Once a day for 30 days 03 M 2020 busPIRone HCl 30 MG 1 tablet Orally Twice a day for 30 days 10 2019 traZODone HCl 150 MG 1 tablet at bedtime Orally Once a day f or 30 days 10 Apr, 2019 Treatment Notes Assessment Notes Clinical Notes Encounter for gynecological examination (general) (routine) without abnormal findings Contacted the patient's primary care pro vider who was able to see the patient immediately after her gynecological examination to evaluate her low back pain and possible sciatica. Next Appt Details Provider Name:Cherelle Martinez, 2021-01-15 0 1:00:00 PM, [address] [place], [address], Provider Name:Fortino Zhou, 2021-11-14 08:30:00 AM, [address] [place], [address], Insurance Providers Payer Name Payer Address Payer Phone Insured Name Patient Relati onship to Insured Coverage Start Date Coverage End Date BCBS OUT OF STATE [address] [address] [facility] [id number] Paige Martinez
[2020-12-26] MEDS ORDERED: BENA25CA4 PO (16:24)
[2020-12-26 17:16] LABS: APPEARANCE, URINE CLEAR (CLEAR); BACTERIA, URINE AUTO NEGATIVE (NEGATIVE); BILIRUBIN, URINE AUTO NEGATIVE (NEGATIVE); BLOOD, URINE BLOOD 1+ (NEGATIVE); COLOR, URINE YELLOW (YELLOW); GLUCOSE, URINE (UA) AUTO NEGATIVE (NEGATIVE); KETONE, URINE AUTO NEGATIVE (NEGATIVE); LEUKOCYTE ESTERASE, URINE AUTO NEGATIVE (NEGATIVE); MUCUS, URINE SMALL (NEGATIVE); NITRITE, URINE AUTO NEGATIVE (NEGATIVE); PROTEIN, URINE AUTO NEGATIVE (NEGATIVE); RBC, URINE AUTO 1 /HPF (0-3); SPECIFIC GRAVITY URINE AUTO 1.011 (1.002-1.035); SQUAMOUS EPITHELIAL CELL UR AU 1 /HPF (0-6); UROBILINOGEN, URINE AUTO 0.2 mg/dL (0.0-2.0); WBC, URINE AUTO 0 /HPF (0-3)
--- OUTSIDE RECORDS SUMMARY | 2020-12-26 17:43 | CCD ---
Author Author [facility] Organization [facility] Address Unknown Phone Unavailable Care Team Providers Care Hvac Sales Representative Name Role Phone Kathy Curran MD Unavailable [...] Unavailable Dombek-Lang, Kathy Chavez MD Unavailable Unavailable [place], L Annabel PROCESS PLANT OPERATOR Unavailable Unavailable [place], L Annabel PROCESS PLANT OPERATOR Unavailable Unavailable Yan, L Annabel PROCESS PLANT OPERATOR Unavailable Unavailable [place], L Annabel PROCESS PLANT OPERATOR Unavailable Unavailable [place], L Annabel PROCESS PLANT OPERATOR Unavailable Unavailable [place], L Annabel PROCESS PLANT OPERATOR Unavailable Unavailable Yan, L Annabel PROCESS PLANT OPERATOR Unavailable Unavailable Yan, L Annabel PROCESS PLANT OPERATOR Unavailable Unavailable [place], L Annabel PROCESS PLANT OPERATOR Unavailable Unavailable Yan, L Annabel PROCESS PLANT OPERATOR Unavailable Unavailable Yan, L Annabel PROCESS PLANT OPERATOR Unavailable Unavailable Yan, L Annabel PROCESS PLANT OPERATOR Unavailable Unavailable Yan, L Annabel PROCESS PLANT OPERATOR Unavailable Unavailable [place], L Annabel PROCESS PLANT OPERATOR Unavailable Unavailable Yan, L Annabel PROCESS PLANT OPERATOR Unavailable Unavailable Yan, L Annabel PROCESS PLANT OPERATOR Unavailable Unavailable [place], L Annabel PROCESS PLANT OPERATOR Unavailable Unavailable [place], L Annabel PROCESS PLANT OPERATOR Unavailable Unavailable Yan, L Annabel PROCESS PLANT OPERATOR Unavailable Unavailable Yan, L Annabel PROCESS PLANT OPERATOR Unavailable Unavailable [place], L Annabel PROCESS PLANT OPERATOR Unavailable Unavailable [place], L Annabel PROCESS PLANT OPERATOR Unavailable Unavailable [place], L Annabel PROCESS PLANT OPERATOR Unavailable Unavailable Yan, L Annabel PROCESS PLANT OPERATOR Unavailable Unavailable [place], L Annabel PROCESS PLANT OPERATOR Unavailable Unavailable Yan, L Annabel PROCESS PLANT OPERATOR Unavailable Unavailable Yan, L Annabel PROCESS PLANT OPERATOR Unavailable Unavailable Yan, L Annabel PROCESS PLANT OPERATOR Unavailable Unavailable [place], L Annabel PROCESS PLANT OPERATOR Unavailable Unavailable Yan, L Annabel PROCESS PLANT OPERATOR Unavailable Unavailable Yan, L Annabel PROCESS PLANT OPERATOR Unavailable Unavailable [place], L Annabel PROCESS PLANT OPERATOR Unavailable Unavailable [place], L Annabel PROCESS PLANT OPERATOR Unavailable Unavailable Yan, L Annabel PROCESS PLANT OPERATOR Unavailable Unavailable Yan, L Annbael PROCESS PLANT OPERATOR Unavailable Unavailable [place], L Annabel PROCESS PLANT OPERATOR Unavailable Unavailable Yan, L Annabel PROCESS PLANT OPERATOR Unavailable Unavailable Yan, L Annabel PROCESS PLANT OPERATOR Unavailable Unavailable Yan, L Annabel PROCESS PLANT OPERATOR Unavailable Unavailable PETROFF, RUSSELL PA Unavailable Unavailable [...] BARB DPM Unavailable Unavailable HUERTA SR, TISH LEOEN MD Unavailable Unavailable HUERTA SR, TISH LEONE [...] Unavailable Unavailable Rydberg, Linda PA Unavailable Unavailable [place], Elle RPA-C Unavailable Unavailable [place], Elle RPA-C Unavailable Unavailable [place], Lele RPA-C Unavailable Unavailable [place], Elle RPA-C Unavailable Unavailable [place], Elle RPA-C Unavailable Unavailable [place], Elle RPA-C Unavailable Unavailable [place], Elle RPA-C Unavailable Unavailable [place], Elle RPA-C Unavailable Unavailable [place], Elle RPA-C Unavailable Unavailable [place], Elle RPA-C Unavailable Unavailable [place], Elle RPA-C Unavailable Unavailable [place], Elle RPA-C Unavailable Unavailable [place], Elle RPA-C Unavailable Unavailable [place], Elle RPA-C Unavailable Unavailable [place], Elle RPA-C Unavailable Unavailable [place], Elle RPA-C Unavailable Unavailable [place], Elle RPA-C Unavailable Unavailable [place], Elle RPA-C Unavailable Unavailable PUENTE, JOYA Unavailable [...] PA Unavailable Unavailable Stephanie, Reginah W Sophie DOUBLE CORNER CUTTER-C Unavailable Unavailabl e Stephanie, Belia W Sophie DOUBLE CORNER CUTTER-C Unavailable Unavailabl e Stephanie, Belia W Sophie DOUBLE CORNER CUTTER-C Unavailable Unavailabl e Stephanie, Belia W Sophie DOUBLE CORNER CUTTER-C Unavailable Unavailabl e Stephanie, Belia W Sophie DOUBLE CORNER CUTTER-C Unavailable Unavailabl e Stephanie, Regmassimo W Sophie DOUBLE CORNER CUTTER-C Unavailable Unavailabl e Stephanie, Regmassimo W Sophie DOUBLE CORNER CUTTER-C Unavailable Unavailabl e Stephanie, Belia W Sophie DOUBLE CORNER CUTTER-C Unavailable Unavailabl e Stephanie, Belia W Sophie DOUBLE CORNER CUTTER-C Unavailable Unavailabl e Stephanie, Belia W Sophie DOUBLE CORNER CUTTER-C Unavailable Unavailabl e Stephanie, Belia Barrios DOUBLE CORNER CUTTER-C Unavailable Unavailabl e Stephanie, Belia W Sophie DOUBLE CORNER CUTTER-C Unavailable Unavailabl e Stephanie, Belia Barrios DOUBLE CORNER CUTTER-C Unavailable Unavailabl e Stephanie, Belia Barrios DOUBLE CORNER CUTTER-C Unavailable Unavailabl e Stephanie, Belia W Sophie DOUBLE CORNER CUTTER-C Unavailable Unavailabl e Stephanie, Belia W Sophie DOUBLE CORNER CUTTER-C Unavailable Unavailabl e Stephanie, Belia W Sophie DOUBLE CORNER CUTTER-C Unavailable Unavailabl e Stephanie, Belia W Sophie DOUBLE CORNER CUTTER-C Unavailable Unavailabl e Stephanie, Regshanta W Sophie DOUBLE CORNER CUTTER-C Unavailable Unavailabl e Stephanie, Regshanta W Sophie DOUBLE CORNER CUTTER-C Unavailable Unavailabl e Stephanie, Regmassimo W Sophie DOUBLE CORNER CUTTER-C Unavailable Unavailabl e Stephanie, Regshanta W Sophie DOUBLE CORNER CUTTER-C Unavailable Unavailabl e Stephanie, Regshanta W Sophie DOUBLE CORNER CUTTER-C Unavailable Unavailabl e Stephanie, Regshanta W Sophie DOUBLE CORNER CUTTER-C Unavailable Unavailabl e Stephanie, Regshanta W Sophie DOUBLE CORNER CUTTER-C Unavailable Unavailabl e Stephanie, Regshanta W Sophie DOUBLE CORNER CUTTER-C Unavailable Unavailabl e Stephanie, Regshanta W Sophie DOUBLE CORNER CUTTER-C Unavailable Unavailabl e Stephanie, Reginah W Sophie DOUBLE CORNER CUTTER-C Unavailable Unavailabl e Stephanie, Reginah W Sophie DOUBLE CORNER CUTTER-C Unavailable Unavailabl e Stephanie, Reginah W Sophie DOUBLE CORNER CUTTER-C Unavailable Unavailabl e Stephanie, Reginah W Sophie DOUBLE CORNER CUTTER-C Unavailable Unavailabl e Stephanie, Reginah W Sophie DOUBLE CORNER CUTTER-C Unavailable Unavailabl e SHIRIN, BLAKE PA Unavailable [...] Unavailable GINZBURG, TIFFANY MD Unavailable Unavailable GINZBURG TIFFAYN MD Unavailable Unavailable GINZBURG, TIFFANY MD Unavailable [...] PAUL PA Unavailable Unavailable Tayler, A Janneth DOUBLE CORNER CUTTER Unavailable Unavailable Tayler, A Janneth DOUBLE CORNER CUTTER Unavailable Unavailable Tayler, A Janneth DOUBLE CORNER CUTTER Unavailable Unavailable Tayler, A Janneth DOUBLE CORNER CUTTER Unavailable Unavailable Tayler, A Janneth DOUBLE CORNER CUTTER Unavailable Unavailable Tayler, A Janneth DOUBLE CORNER CUTTER Unavailable Unavailable Tayler, A Janneth DOUBLE CORNER CUTTER Unavailable Unavailable Tayler, A Janneth DOUBLE CORNER CUTTER Unavailable Unavailable Tayler, A Janneth DOUBLE CORNER CUTTER Unavailable Unavailable Tayler, A Janneth DOUBLE CORNER CUTTER Unavailable Unavailable Tayler, A Janneth DOUBLE CORNER CUTTER Unavailable Unavailable Tayler, A Janneth DOUBLE CORNER CUTTER Unavailable Unavailable Tayler, A Janneth DOUBLE CORNER CUTTER Unavailable Unavailable Tayler, A Janneth DOUBLE CORNER CUTTER Unavailable Unavailable Tayler, A Janneth DOUBLE CORNER CUTTER Unavailable Unavailable Tayler, A Janneth DOUBLE CORNER CUTTER Unavailable Unavailable Tayler, A Janneth DOUBLE CORNER CUTTER Unavailable Unavailable Tayler, A Janneth DOUBLE CORNER CUTTER Unavailable Unavailable Tayler, A Janneth DOUBLE CORNER CUTTER Unavailable Unavailable Tayler, A Janneth DOUBLE CORNER CUTTER Unavailable Unavailable Tayler, A Janneth DOUBLE CORNER CUTTER Unavailable Unavailable Tayler, A Janneth DOUBLE CORNER CUTTER Unavailable Unavailable Tayler, A Janneth DOUBLE CORNER CUTTER Unavailable Unavailable Tayler, A Janneth DOUBLE CORNER CUTTER Unavailable Unavailable Tayler, A Janneth DOUBLE CORNER CUTTER Unavailable Unavailable Tayler, A Janneth DOUBLE CORNER CUTTER Unavailable Unavailable Tayler, A Janneth DOUBLE CORNER CUTTER Unavailable Unavailable Tayler, A Janneth DOUBLE CORNER CUTTER Unavailable Unavailable Tayler, A Janneth DOUBLE CORNER CUTTER Unavailable Unavailable Tayler, A Janneth DOUBLE CORNER CUTTER Unavailable Unavailable Tayler, A Janneth DOUBLE CORNER CUTTER Unavailable Unavailable Tayler, A Janneth DOUBLE CORNER CUTTER Unavailable Unavailable Tayler, A Janneth DOUBLE CORNER CUTTER Unavailable Unavailable Tayler, A Janneth DOUBLE CORNER CUTTER Unavailable Unavailable Tayler, A Janneth DOUBLE CORNER CUTTER Unavailable Unavailable Tayler, A Janneth DOUBLE CORNER CUTTER Unavailable Unavailable Tayler, A Janneth DOUBLE CORNER CUTTER Unavailable Unavailable Tayler, A Janneth DOUBLE CORNER CUTTER Unavailable Unavailable Tayler, A Janneth DOUBLE CORNER CUTTER Unavailable Unavailable Tayler, A Janneth DOUBLE CORNER CUTTER Unavailable Unavailable Tayler, A Janneth DOUBLE CORNER CUTTER Unavailable Unavailable Tayler, A Janneth DOUBLE CORNER CUTTER Unavailable Unavailable Tayler, A Janneth DOUBLE CORNER CUTTER Unavailable Unavailable Tayler, A Janneth DOUBLE CORNER CUTTER Unavailable Unavailable Tayler, A Janneth DOUBLE CORNER CUTTER Unavailable Unavailable Tayler, A Janneth DOUBLE CORNER CUTTER Unavailable Unavailable Tayler, A Janneth DOUBLE CORNER CUTTER Unavailable Unavailable Tayler, A Janneth DOUBLE CORNER CUTTER Unavailable Unavailable Tayler, A Janneth DOUBLE CORNER CUTTER Unavailable Unavailable Tayler, A Janneth DOUBLE CORNER CUTTER Unavailable Unavailable Tayler, A Janneth DOUBLE CORNER CUTTER Unavailable Unavailable Tayler, A Janneth DOUBLE CORNER CUTTER Unavailable Unavailable Tayler, A Janneth DOUBLE CORNER CUTTER Unavailable Unavailable EGORHO, F LILI FPMHNP Unavailable [...] is protected by Article 27-F of the [facility] Public Health law. If you continue you may have access to information: Regarding HIV / AIDS; Provided by facilities licensed or operated by the [facility] Office of Mental Health; or Provided by the [facility] Office for People With Developmental Disabilities. If such information is present, then the following [facility] mandated warning applies: This information has [...] law may result in a fine or mcfp sentence or both. A general authorization for the release of medical or other information is NOT sufficient authorization for further disc losure. Family History Family Member Name Family Member Gender Family Member Status Date o f Status Description Data Source(s) Unknown Male Problem MEDENT ([facility] ) Unknown Unknown Problem MED[facility] ([facility], ) mother age dx late 50s Unknown Unknown Problem MEDENT ([facility], ) Unknown Female Problem MEDENT ([facility] Encounters Encounter Providers Location Date Indications Data Source(s ) Outpatient [facility] 12/04/2020 12:00:00 AM EDT eCW1 ([facility]) Outpatient Attender: Janneth LO 11/27/2020 09:55 :00 AM [facility] Outpatient Attender: LILI BUNNLORI 11/21/2020 01:00: 00 PM [facility] Outpatient Attender: Janneth LO 11/08/2020 09:35 :00 AM [facility] Outpatient Attender: BARB FRANCO DO 11/08/2020 09:01:00 A M [facility] Outpatient [facility] 11/08/2020 12:00:00 AM EDT eCW1 ([facility]) Outpatient [facility] 11/08/2020 12:00:00 AM EDT eCW1 ([facility]) Outpatient Attender: Ray Wilcox 09/18/2020 04:00:00 PM [facility] Outpatient Attender: LILI RIDDLE 09/12/2020 03:00: 00 PM [facility] Outpatient [facility] 09/12/2020 12:00:00 AM EDT eCW1 ([facility]) Outpatient Attender: Janneth Lester FNPReferrer: Janneth RUIZP EMERGENCY ROOM-CT 09/11/2020 10:02:00 AM EDT - 09/11/2020 10:02:00 AM EDT [facility] Outpatient Attender: Janneth Fairchild PA-C 08/31/2020 02:40 :00 PM EDT [facility] Outpatient [facility] 08/31/2020 12:00:00 AM EDT eCW1 ([facility]) Emergency Attender: PAUL Ortizer: Janneth LO 08/10/2020 09:51:00 AM EDT - 08/10/2020 10:22:[address] [facility] pital Patient discharged. Outpatient Attender: LILI BUNNLORI 08/01/2020 04:00: 00 PM EDT [facility] Outpatient Attender: BARB AMARAL [facility] Office 07/02 03:00:00 PM EDT MEDENT ([facility] Outpatient [facility] 07/25/2020 12:00:00 AM EDT eCW1 ([facility]) Outpatient [facility] 07/06/2020 12:00:00 AM EDT eCW1 ([facility]) Outpatient Attender: Linda FARLEY 07/03/2020 01:30:00 PM EDT [facility] Outpatient [facility] 07/03/2020 12:00:00 AM EDT eCW1 ([facility]) Outpatient Attender: Ray Wilcox 06/26/2020 06:00:00 PM EDT [facility] Outpatient Attender: LILI [facility]ender[facility]20[facility]2020 05:10:00 PM EDT [facility] Outpatient [facility] 06/14/2020 12:00:00 AM EDT eCW1 ([facility]) Outpatient [facility] 05/24/2020 12:00:00 AM EDT eCW1 ([facility]) Outpatient Attender: Sophie GUIDO 05/19/2020 04:46:0 0 PM EDT [facility] Admission cancelled. Disregard status an d admitted date. Outpatient Attender: Sophie Spangler: Janneth freeman DOUBLE CORNER CUTTER 05/19/2020 04:17:00 PM EDT - 05/19/2020 04:17:00 PM EDT [facility] Outpatient [facility] 05/19/2020 12:00:00 AM EDT eCW1 ([facility]) Emergency Attender: BLAKE Armstrongerrer: Janneth bello DOUBLE CORNER CUTTER 05/18/2020 04:07:00 PM EDT - 05/18/2020 04:58:[address] [facility] pital Patient discharged. Outpatient Attender: Ray Scottttender: RAY DIAZ 05/11/2020 06:00:00 PM [facility] Outpatient Attender: LILI CISNEROS 05/03/2020 04:00:00 PM [facility] Outpatient Attender: RAY WILCOX 03/31/2020 03:00:00 PM [facility] OFFICE OUTPATIENT VISIT 15 MINUTES Attender: BEATRICE FARLEY Phys ical Therapy 03/24/2020 08:15:00 AM EST MEDENT ([facility]) Outpatient Attender: JOYA PUENTE 03/13/2020 04:43:00 PM [facility] Outpatient Attender: RAY WILCOX 03/02/2020 03:00:00 PM [facility] Outpatient Attender: Elle LEAVITTC 02/09/2020 02:00: 00 PM [facility] 02/09/2020 12:00:00 AM EST eCW1 ([facility]) Emergency Attender: FABRIZIO Armstrongerrer : Janneth Lester [facility] EMERGENCY ROOM-ER 02/08/2020 02:08:00 PM EST - 02/08/2020 04:24:00 PM [facility] Patient discharged. Outpatient Attender: JOYA PUENTE 02/07/2020 05:00:00 PM [facility] Outpatient Attender: RAY WILCOX 02/04/2020 03:00:00 PM [facility] Outpatient Attender: JOYA PUENTE 01/10/2020 05:00:00 PM [facility] Outpatient Attender: Annabel KOHLER 01/06/2020 02:03:00 PM [facility] Outpatient [facility] 01/06/2020 12:00:00 AM EST eCW1 ([facility]) Outpatient Attender: RAY WILCOX 01/05/2020 06:00:00 PM [facility] Outpatient Attender: TIFFANY OLVERA MD 12/16/2019 12:00: 00 AM [facility] OFFICE OUTPATIENT VISIT 15 MINUTES Attender: BEATRICE FARLEY Phys ical Therapy 12/08/2019 10:45:00 AM EDT MEDENT ([facility]) Outpatient Attender: Janneth GAYC 12/06/2019 01:24 :00 PM EDT [facility] Outpatient [facility] 12/06/2019 12:00:00 AM EDT eCW1 ([facility]) Recurring Patient Referrer: Janneth LO 0 05:13:25 PM EDT [facility] Outpatient Attender: RAY WILCOX 11/26/2019 03:53:00 PM EDT [facility] Outpatient Attender: JOYA PUENTE 11/22/2019 05:00:00 PM ED T [facility] Outpatient Attender: Janneth Lester FNPReferrer: Janneth LO 11/22/2019 02:24:00 PM EDT - 11/22/2019 02:24:00 PM T [facility] Outpatient Attender: Janneth LO 11/22/2019 01:29 :00 PM EDT [facility] Outpatient [facility] 11/22/2019 12:00:00 AM EDT eCW1 ([facility]) Outpatient [facility] 11/22/2019 12:00:00 AM EDT eCW1 ([facility]) Outpatient [facility] 11/22/2019 12:00:00 AM EDT eCW1 ([facility]) Outpatient [facility] 11/22/2019 12:00:00 AM EDT eCW1 ([facility]) Outpatient Attender: BARB Fullererrer: Zia LO EMERGENCY ROOM-LAB REF 11/03/2019 11:13:00 AM EDT - 11/03/2019 11:13:00 AM [facility] Outpatient Attender: BARB FRANCO DO 11/03/2019 09:22:00 A M [facility] Outpatient [facility] 11/03/2019 12:00:00 AM EDT [facility] ([facility]) Outpatient Attender: VASU HUERTA SR 11/01/2019 02:00:00 PM [facility] Outpatient [facility] 11/01/2019 12:00:00 AM EDT eC1 ([facility]) Emergency Attender: ADRIANA LAWSON JRReferrer: Me james LO EMERGENCY ROOM-ER 10/30/2019 07:37:00 PM EDT - 10/30/2019 08:36:00 PM [facility] Patient discharged. Outpatient Attender: RAY WILCOX 10/26/2019 04:00:00 PM [facility] Outpatient Attender: JOYA PUENTE 10/25/2019 04:40:00 PM [facility] Outpatient Attender: Janneth LO 10/18/2019 02:30 :00 PM [facility] Outpatient Attender: RAY WILCOX 10/07/2019 05:00:00 PM [facility] Outpatient Attender: RAY WILCOX 10/01/2019 01:00:00 PM [facility] Outpatient Attender: JOYA PUENTE 09/13/2019 03:00:00 PM [facility] Outpatient Attender: Janneth LO 08/26/2019 02:21 :00 PM [facility] Outpatient Attender: Janneth Lester FNPReferrer: Janneth LO EMERGENCY ROOM-LAB 08/17/2019 02:56:00 PM EDT - 08/17/2019 02:56:00 PM [facility] Outpatient Attender: JOYA PUNETE 07/12/2019 02:36:00 PM [facility] Outpatient Attender: JOYA PUENTE 05/10/2019 01:55:00 PM [facility] Outpatient Attender: Janneth Lester FNPReferrer: Janneth LO 03/16/2019 12:00:00 PM [facility] Outpatient Attender: Janneth Lester FNPReferrer: Janneth LO 02/11/2019 03:09:00 PM EST - 02/11/2019 03:09:00 PM [facility] Outpatient Attender: Janneth Lester FNPReferrer: Janneth Lester DOUBLE CORNER CUTTER 01/20/2019 01:00:00 PM EST - 01/20/2019 01:00:00 PM [facility] Emergency Attender: TAMIE RATLIFF PAReferrer: Janneth Duráne DOUBLE CORNER CUTTER 11/17/2017 01:33:00 PM EDT - 11/17/2017 02:25:00 PM [facility] Outpatient Attender: Sophie Brown DOUBLE CORNER CUTTER-CReferrer: Janneth Baldev freeman [facility] 10/10/2017 03:40:00 PM EDT - 10/10/2017 03:40:00 PM [facility] Outpatient Attender: Janneth Tayler RUIZP 0 09/25/2017 01:00:00 PM EDT - 09/25/2017 01:00:00 PM [facility] Emergency Attender: RUSSELL FARLEY EMERGENCY ROOM-ER 05/03 12:36:00 PM EDT - 05/31/2017 02:02:00 PM [facility] Outpatient Attender: Janneth Tayler RUIZP 12/09/2016 01:33 :00 PM [facility] Outpatient Attender: Kathy Curran MD 09/25/2016 09:4 0:00 AM [facility] Outpatient Attender: BARB FRANCO DO 09/19/2015 09:05:00 A M [facility] Immunizations Vaccine Date Status Description Data Source(s) COVID-19 VACCINE Moderna 06/19/2020 12:00:00 AM EDT completed [facility] Vaccine Series Complete: YESThis Data wa s Submitted to [facility] [employer]. COVID-19 VACC,MRNA(MODERNA)/PF 05/19/2020 12:00:00 AM EDT completed [facility] COVID-19 VACCINE Moderna 05/19/2020 12:00:00 AM EDT completed [facility] Vaccine Series Complete: NOThis Data was Submitted to [facility] [employer]. New in 2011. IIV4 01/06/2020 02:08:00 PM EST completed eCW1 ([facility]) New in 2011. IIV4 01/06/2020 02:08:00 PM EST completed eCW1 ([facility]) New in 2011. II01/06/2020 02:08:00 PM EST completed eCW1 ([facility]) New in 2011. IIV4 01/06/2020 02:08:00 PM EST completed eCW1 ([facility]) New in 2011. II01/06/2020 02:08:00 PM EST completed eCW1 ([facility]) New in 2011. IIV01/06/2020 02:08:00 PM EST completed eCW1 ([facility]) New in 2011. II01/06/2020 02:08:00 PM EST completed eCW1 ([facility]) New in 2011. II01/06/2020 02:08:00 PM EST completed eCW1 ([facility]) New in 2011. II01/06/2020 02:08:00 PM EST completed eCW1 ([facility]) New in 2011. II01/06/2020 02:08:00 PM EST completed eCW1 ([facility]) New in 2011. II01/06/2020 02:08:00 PM EST completed eCW1 ([facility]) New in 2011. II01/06/2020 02:08:00 PM EST completed eCW1 ([facility]) New in 2011. II01/06/2020 02:08:00 PM EST completed eCW1 ([facility]) New in 2011. II01/06/2020 02:08:00 PM EST completed eCW1 ([facility]) Medications Medication Brand Name Start Date Product Form Dose Route Admi nistrative Instructions Pharmacy Instructions Status Indications Reaction Description Data Source(s) Prednisone 20 MG Oral Tablet predniSONE 20 MG predniSONE 20 MG 11/08/2020 12:00:00 AM EDT 2.0 {tablet} active pr edniSONE 20 MG eCW1 ([facility]) Prednisone 20 MG Oral Tablet predniSONE 20 MG predniSONE 20 MG 11/08/2020 12:00:00 AM EDT 2.0 {tablet} active pr edniSONE 20 MG eCW1 ([facility]) Prednisone 20 MG Oral Tablet predniSONE 20 MG predniSONE 20 MG 11/08/2020 12:00:00 AM EDT 2.0 {tablet} active pr edniSONE 20 MG eCW1 ([facility]) physical therapy eval and tx - UNK 11/08/2020 12:00:00 AM EDT active physical therapy eval and tx - eCW1 ([facility]) physical therapy eval and tx - UNK 11/08/2020 12:00:00 AM EDT active physical therapy eval and tx - eCW1 ([facility]) physical therapy eval and tx - UNK 11/08/2020 12:00:00 AM EDT active physical therapy eval and tx - eCW1 ([facility]) tizanidine 2 MG Oral Tablet tiZANidine HCl 2 MG tiZANidine H Cl 2 MG 11/08/2020 12:00:00 AM EDT 1.0 {tablet_as_needed} active tiZANidine HCl 2 MG eCW1 ([facility]) tizanidine 2 MG Oral Tablet tiZANidine HCl 2 MG tiZANidine H Cl 2 MG 11/08/2020 12:00:00 AM EDT 1.0 {tablet_as_needed} active tiZANidine HCl 2 MG eCW1 ([facility]) tizanidine 2 MG Oral Tablet tiZANidine HCl 2 MG tiZANidine H Cl 2 MG 11/08/2020 12:00:00 AM EDT 1.0 {tablet_as_needed} active tiZANidine HCl 2 MG eCW1 ([facility]) 500 mg 07/27/2020 12:00:00 AM EDT tablet [...] {tablet_with_food_or_milk} active Napro xen 250 MG eCW1 ([facility]) Naproxen 250 MG Oral Tablet Naproxen 250 MG 07/03/2020 12:00:00 AM EDT 1.0 {tablet_with_food_or_milk} active Napro xen 250 MG eCW1 ([facility]) Naproxen 250 MG Oral Tablet Naproxen 250 MG 07/03/2020 12:00:00 AM EDT 1.0 {tablet_with_food_or_milk} active eCW1 ([facility]) Naproxen 250 MG Oral Tablet Naproxen 250 MG 07/03/2020 12:00:00 AM EDT 1.0 {tablet_with_food_or_milk} active Napro xen 250 MG eCW1 ([facility]) Naproxen 250 MG Oral Tablet Naproxen 250 MG 07/03/2020 12:00:00 AM EDT 1.0 {tablet_with_food_or_milk} active Napro xen 250 MG eCW1 ([facility]) Magnesium Hydroxide 80 MG/ML Oral Suspension Milk Of Magnesi a 06/19/2020 12:00:00 AM EDT ORAL active M EDENT ([facility], ) Sutab Sutab 06/19/2020 12:00:00 AM EDT active MEDENT ([facility], ) physical therapy eval and tx - UNK 05/19/2020 12:00:00 AM EDT active physical therapy eval and tx - eCW1 ([facility]) physical therapy eval and tx - UNK 05/19/2020 12:00:00 AM EDT active physical therapy eval and tx - eCW1 ([facility]) physical therapy eval and tx - UNK 05/19/2020 12:00:00 AM EDT active physical therapy eval and tx - eCW1 ([facility]) physical therapy eval and tx - UNK 05/19/2020 12:00:00 AM EDT active eCW1 ([facility]) physical therapy eval and tx - UNK 05/19/2020 12:00:00 AM EDT active physical therapy eval and tx - eCW1 ([facility]) physical therapy eval and tx - UNK 05/19/2020 12:00:00 AM EDT active physical therapy eval and tx - eCW1 ([facility]) Fluoxetine 60 MG Oral Tablet Fluoxetine HCl 60 MG Fluoxetine HCl 60 MG 05/03/2020 12:00:00 AM EST 1.0 {tablet} active Fluoxetine HCl 60 MG eCW1 ([facility]) Fluoxetine 60 MG Oral Tablet Fluoxetine HCl 60 MG Fluoxetine HCl 60 MG 05/03/2020 12:00:00 AM EST 1.0 {tablet} active eCW1 ([facility]) Fluoxetine 60 MG Oral Tablet FLUoxetine HCl 60 MG FLUoxetine HCl 60 MG 05/03/2020 12:00:00 AM EST 1.0 {tablet} active FLUoxetine HCl 60 MG eCW1 ([facility]) Fluoxetine 60 MG Oral Tablet Fluoxetine HCl 60 MG Fluoxetine HCl 60 MG 05/03/2020 12:00:00 AM EST 1.0 {tablet} active Fluoxetine HCl 60 MG eCW1 ([facility]) Fluoxetine 60 MG Oral Tablet FLUoxetine HCl 60 MG FLUoxetine HCl 60 MG 05/03/2020 12:00:00 AM EST 1.0 {tablet} active FLUoxetine HCl 60 MG eCW1 ([facility]) Fluoxetine 60 MG Oral Tablet FLUoxetine HCl 60 MG FLUoxetine HCl 60 MG 05/03/2020 12:00:00 AM EST 1.0 {tablet} active FLUoxetine HCl 60 MG eCW1 ([facility]) Fluoxetine 60 MG Oral Tablet FLUoxetine HCl 60 MG FLUoxetine HCl 60 MG 05/03/2020 12:00:00 AM EST 1.0 {tablet} active FLUoxetine HCl 60 MG eCW1 ([facility]) Fluoxetine 60 MG Oral Tablet Fluoxetine HCl 60 MG Fluoxetine HCl 60 MG 05/03/2020 12:00:00 AM EST 1.0 {tablet} active Fluoxetine HCl 60 MG eCW1 ([facility]) Fluoxetine 60 MG Oral Tablet Fluoxetine HCl 60 MG Fluoxetine HCl 60 MG 05/03/2020 12:00:00 AM EST 1.0 {tablet} active Fluoxetine HCl 60 MG eCW1 ([facility]) Fluoxetine 60 MG Oral Tablet FLUoxetine HCl 60 MG FLUoxetine HCl 60 MG 05/03/2020 12:00:00 AM EST 1.0 {tablet} active FLUoxetine HCl 60 MG eCW1 ([facility]) Fluoxetine 60 MG Oral Tablet Fluoxetine HCl 60 MG Fluoxetine HCl 60 MG 05/03/2020 12:00:00 AM EST 1.0 {tablet} active Fluoxetine HCl 60 MG eCW1 ([facility]) Prazosin 1 MG Oral Capsule Prazosin HCl 1 MG Prazosin HCl 1 MG 02/07/2020 12:00:00 AM EST 1.0 {capsule_at_bedtime} active Prazosin HCl 1 MG eCW1 ([facility]) nabumetone 750 MG Oral Tablet Nabumetone 750 MG Nabumetone 7 50 MG 11/22/2019 12:00:00 AM EDT 1.0 {tablet} active Na bumetone 750 MG eCW1 ([facility]) Wellbutrin SR 100 MG UNK 11/22/2019 12:00:00 AM EDT active Wellbutrin SR 100 MG eCW1 ([facility]) Wellbutrin SR 100 MG UNK 11/22/2019 12:00:00 AM EDT active Wellbutrin SR 100 MG eCW1 ([facility]) nabumetone 750 MG Oral Tablet Nabumetone 750 MG Nabumetone 7 50 MG 11/22/2019 12:00:00 AM EDT 1.0 {tablet} active Na bumetone 750 MG eCW1 ([facility]) Wellbutrin SR 100 MG UNK 11/22/2019 12:00:00 AM EDT active Wellbutrin SR 100 MG eCW1 ([facility]) Wellbutrin SR 100 MG UNK 11/22/2019 12:00:00 AM EDT active Wellbutrin SR 100 MG eCW1 ([facility]) Wellbutrin SR 100 MG UNK 11/22/2019 12:00:00 AM EDT active Wellbutrin SR 100 MG eCW1 ([facility]) nabumetone 750 MG Oral Tablet Nabumetone 750 MG Nabumetone 7 50 MG 11/22/2019 12:00:00 AM EDT 1.0 {tablet} active Na bumetone 750 MG eCW1 ([facility]) Wellbutrin SR 100 MG UNK 11/22/2019 12:00:00 AM EDT active Wellbutrin SR 100 MG eCW1 ([facility]) nabumetone 750 MG Oral Tablet Nabumetone 750 MG Nabumetone 7 50 MG 11/22/2019 12:00:00 AM EDT 1.0 {tablet} active Na bumetone 750 MG eCW1 ([facility]) nabumetone 750 MG Oral Tablet Nabumetone 750 MG Nabumetone 7 50 MG 11/22/2019 12:00:00 AM EDT 1.0 {tablet} active Na bumetone 750 MG eCW1 ([facility]) nabumetone 750 MG Oral Tablet Nabumetone 750 MG Nabumetone 7 50 MG 11/22/2019 12:00:00 AM EDT 1.0 {tablet} active Na bumetone 750 MG eCW1 ([facility]) nabumetone 750 MG Oral Tablet Nabumetone 750 MG Nabumetone 7 50 MG 11/22/2019 12:00:00 AM EDT 1.0 {tablet} active Na bumetone 750 MG eCW1 ([facility]) Wellbutrin SR 100 MG UNK 11/22/2019 12:00:00 AM EDT active Well[facility] SR [facility] Wellbutrin SR 100 MG UNK 11/22/2019 12:00:00 AM EDT active Wellbutrin SR 100 MG eCW1 ([facility]) nabumetone 750 MG Oral Tablet Nabumetone 750 MG Nabumetone 7 50 MG 11/22/2019 12:00:00 AM EDT 1.0 {tablet} active Na bumetone 750 MG eCW1 ([facility]) Insurance Providers Payer name Policy type / Coverage type Policy ID Covered green party ID Covered green party's relationship to hooper Policy [place] Plan Information [place] XAVIERN PPO 302/307 [id number] HU2 [id number] [employer] BCBS Medigap Part B [id number] Family Dependent [id number] [employer] BCBS [facility] Part B [id number] Family Dependent [id number] BS [place] Commercial [id number] BS [place] [id number] BS [place] [id number] BS [place] [id number] BS [place] [employer] [id number] BS [place] [id number] BS [place] [id number] BS [place] [id number] [place] [id number] SPO Y [id number] BCBS [place] [id number] SPO Y [id number] [place] WATN PPO 302/307 [id number] SP [id number] BCBS GENERIC C [id number] Spouse [id number] [place] PPO 302/307 [id number] SP [id number] BCBS [place] [id number] SPO Z [id number] BCBS [place] [id number] SPO [id number] BCBS EXCE[place] [id number] S Z [id number] BCBS EX[place] [id number] S Z [id number] BLUE CARD C [id number] Self [id number] Blue Cross Blue Shield P [id number] SELF [id number] BCBS [place] [id number] S Z [id number] BCBS EXCE[place] [id number] SPO Y [id number] [employer] BCBS Health Maintenance Organization ([facility]) [id number] Family Dependent [id number] BCBS [place] [id number] SPO [id number] [place] PPO 302/307 [id number] [id number] [employer] BCBS Health Maintenance Organization ([facility]) [id number] Family Dependent [id number] BCBS [place] BC [id number] SPO [id number] BCBS [place] BC [id number] SPO [id number] BCBS [place] BC [id number] SPO Z [id number] [place] BC [id number] SPO Y [id number] EXCELL[employer] BCBS B [id number] P Y [id number] [place] BC [id number] SPO [id number] BS [place] [id number] Family Dependent BCBS [place] WATN 306/806 [id number] i/[employer] [id number] Family Dependent SELF PAY SP [id number] S [id number] [employer] BCBS B [id number] P [id number] [place] [place] BC [id number] SPO [id number] BC[employer] [place] BC [id number] EX[employer]LL[employer] BCBS P [id number] P [id number] BC/BS Of [place] [facility] [id number] Family Dep endent BCBS EXCE[place] [id number] S Z [id number] [place]BS [place]AT[place] PPO 302/307 [id number] SP [id number] BCBS EX[place] [id number] S Z [id number] [place]BS [place] WATN PPO 302/307 [id number] EXCE[employer] BCBS B [id number] S Z [id number] BCBS EX[place] [id number] SPO [id number] BCBS EXCE[place] [id number] S Y [id number] Ramen [id number] Ramen [id number] [employer] [id number] Ramen [id number] BS [place] [facility] [id number] Family Dependent [id number] BS [place] Medigap Part B [id number] Family Dependent [id number] BS [place] Medigap Part B [id number] Family Dependent [id number] BS [place] Medigap Part B [id number] Family Dependent [id number] BS [place] Medigap Part B [id number] Family Dependent [id number] [employer] [id number] BS [place] Medigap Part B [id number] Family Dependent [id number] BS [place] Medigap Part B [id number] Family Dependent [id number] BS [place] Medigap Part B [id number] Family Dependent [id number] [employer] [id number] ANSI-Commercial [id number] ANSI-Commercial [id number] Problems, Conditions, and Diagnoses Code Display Name Description Problem Type Effective Dates Data Source(s) F33.1 Major depressive disorder, recurrent, mo derate MAJOR DEPRESSIVE DISORDER, RECURRENT, MODERATE Diagnosis 11/21/2020 01:00:00 PM [facility] M54.41 Lumbago with sciatica, right side LUMBAGO WITH S CIATICA, RIGHT SIDE Diagnosis 11/08/2020 09:35:00 AM [facility] M54.30 Sciatica, unspecified side SCIATICA, UNSPECIFIED SIDE Diagnosis 11/08/2020 09:01:00 AM [facility] Z01.419 Encounter for gynecological examination (general) (routine) without abnormal findings ENCNTR FOR WATER RESOURCES PROJECT MANAGER EXAM (GENERAL) (ROUTINE) W/O ABN FINDIN GS Diagnosis 11/08/2020 09:01:00 AM [facility] R91.8 Other nonspecific abnormal finding of albert ng field OTHER NONSPECIFIC ABNORMAL FINDING OF LUNG FIELD Diagnosis 09/11/2020 10:02:00 AM [facility] J43.2 Centrilobular emphysema CENTRILOBULAR EMPHYSEMA Diagno sis 09/11/2020 10:02:00 AM [facility] E03.9 Hypothyroidism, unspecified HYPOTHYROIDISM, UNSPECIFIE D Diagnosis 09/11/2020 10:02:00 AM [facility] E55.9 Vitamin D deficiency, unspecified VITAMIN D DEFI CIENCY, UNSPECIFIED Diagnosis 09/11/2020 10:02:00 AM [facility] E78.5 Hyperlipidemia, unspecified HYPERLIPIDEMIA, UNSPECIFIE D Diagnosis 09/11/2020 10:02:00 AM [facility] Z12.31 Encounter for screening mammogram for ma lignant neoplasm of breast ENCNTR SCREEN MAMMOGRAM FOR MALIGNANT NE Diagnosis 09/11/2020 10:02:00 AM [facility] Z87.891 Personal history of nicotine dependence PERSONAL HISTORY OF NICOTINE DEPENDENCE Diagnosis 09/11/2020 10:02:00 AM [facility] Z68.37 Body mass index (BMI) 37.0-37.9, adult B [place] INDEX [BMI] 37.0-37.9, ADULT Diagnosis 08/31/2020 02:40:00 PM [facility] K21.9 Gastro-esophageal reflux disease without esophagitis GASTRO-ESOPHAGEAL REFLUX DISEASE WITHOUT ESOPHAGIT Diagnosis 08/31/2020 02:40:00 PM [facility] N81.10 Cystocele, unspecified CYSTOCELE, UNSPECIFIED Diagnosi s 08/31/2020 02:40:00 PM [facility] F17.210 Nicotine dependence, cigarettes, uncompl icated NICOTINE DEPENDENCE, CIGARETTES, UNCOMPLICATED Diagnosis 08/31/2020 02:40:00 PM [facility] E66.9 Obesity, unspecified OBESITY, UNSPECIFIED Diagnosis 08/31/2020 02:40:00 PM [facility] M19.90 Unspecified osteoarthritis, unspecified site UNSPECIFIED OSTEOARTHRITIS, UNSPECIFIED SITE Diagnosis 08/31/2020 02:40:00 PM [facility] F43.21 Adjustment disorder with depressed mood ADJUSTMENT DISORDER WITH DEPRESSED MOOD Diagnosis 08/31/2020 02:40:00 PM [facility] G47.33 Obstructive sleep apnea (adult) (pediatr ic) OBSTRUCTIVE SLEEP APNEA (ADULT) (PEDIATRIC) Diagnosis 08/31/2020 02:40:00 PM [facility] M51.37 Other intervertebral disc degeneration, lumbosacral region OTHER INTERVERTEBRAL DISC DEGENERATION, LUMBOSACRA Diagnosis 02:40:00 PM [facility] Z00.00 Encounter for general adult medical examination without abnormal findings ENCNTR FOR GENERAL ADULT MEDICAL EXAM W/O ABNORMAL FINDINGS Diagnosis 08/31/2020 02:40:00 PM [facility] Z90.49 Acquired absence of other specified part s of digestive tract ACQUIRED ABSENCE OF OTHER SPECIFIED PARTS OF DIGES Diagnosis 08/10/2020 09:51:0 0 AM [facility] Z79.899 Other rodent exterminator (current) drug therapy O THER UPHOLSTERY TECH (CURRENT) DRUG THERAPY Diagnosis 08/10/2020 09:51:00 AM [facility] Z79.82 MCC (current) use of aspirin SHELTER (CU RRENT) USE OF ASPIRIN Diagnosis 08/10/2020 09:51:00 AM [facility] Z79.51 MCC (current) use of inhaled stero ids UPHOLSTERY TECH (CURRENT) USE OF INHALED STEROIDS Diagnosis 08/10/2020 09:51:00 AM [facility] E78.00 PURE HYPERCHOLESTEROLEMIA, UNSPECIFIED P URE HYPERCHOLESTEROLEMIA, UNSPECIFIED Diagnosis 08/10/2020 09:51:00 AM [facility] J44.9 Chronic obstructive pulmonary disease, u nspecified CHRONIC OBSTRUCTIVE PULMONARY DISEASE, UNSPECIFIED Diagnosis 08/10/2020 09:51:00 AM [facility] M75.51 Bursitis of right shoulder BURSITIS OF RIGHT SHOULDER Diagnosis 08/10/2020 09:51:00 AM [facility] M25.511 Pain in right shoulder PAIN IN RIGHT SHOULDER Diagnosi s 08/10/2020 09:51:00 AM [facility] M72.2 Plantar fascial fibromatosis PLANTAR FASCIAL FIBROMATO SIS Diagnosis 07/03/2020 01:30:00 PM [facility] 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, lumbosacral region SPONDYLS W/O MYELOPATHY OR RADICULOPATHY, LUMBOSAC Diagnosis 04:17:00 PM [facility] M54.5 Low back pain LOW BACK PAIN Diagnosis 05/19/2020 04:17:00 PM [facility] Y93.89 Activity, other specified ACTIVITY, OTHER SPECIFIED Di agnosis 05/18/2020 04:07:00 PM [facility] Y92.[address] the place of o ccurrence of the external cause OTH PLACES THE PLACE OF OCCURRENCE OF THE EXTER Diagnosis 04:07:00 PM [facility] X58.XXXA Exposure to other specified factors, ini tial encounter EXPOSURE TO OTHER SPECIFIED FACTORS, INITIAL ENCOU Diagnosis 05/18/2020 04:07:00 P M [facility] S39.012A Strain of muscle, fascia and tendon of l ower back, initial encounter STRAIN OF MUSCLE, FASCIA AND TENDON OF LOWER BACK, Diagnosis 04:07:00 PM [facility] F33.9 Major depressive disorder, recurrent, un specified MAJOR DEPRESSIVE DISORDER, RECURRENT, UNSPECIFIED Diagnosis 05/03/2020 04:00:00 PM [facility] B34.9 Viral infection, unspecified VIRAL INFECTION, UNSPECIF IED Diagnosis 02/09/2020 02:00:00 PM [facility] Z20.828 Contact with and (suspected) exposure to other viral communicable diseases CONTACT W AND EXPOSURE TO OTH VIRAL COMMUNICABLE D Diagnosis 02/08/2020 02:08:00 PM [facility] I10 Essential (primary) hypertension ESSENTIAL (PRIMARY) H YPERTENSION Diagnosis 02/08/2020 02:08:00 PM [facility] J01.90 Acute sinusitis, unspecified ACUTE SINUSITIS, UNSPECIF IED Diagnosis 02/08/2020 02:08:00 PM [facility] J02.9 Acute pharyngitis, unspecified ACUTE PHARYNGITIS, UNSP ECIFIED Diagnosis 02/08/2020 02:08:00 PM [facility] R05 Cough COUGH Diagnosis 02/08/2020 02:08:00 PM [facility] Z71.89 Other specified counseling OTHER SPECIFIED COUNSELING Diagnosis 01/06/2020 02:03:00 PM [facility] Z23 Encounter for immunization ENCOUNTER FOR IMMUNIZATION Diagnosis 01/06/2020 02:03:00 PM [facility] G89.29 Other chronic pain OTHER CHRONIC PAIN Diagnosis 07/2019 01:24:00 PM [facility] M25.562 Pain in left knee PAIN IN LEFT KNEE Diagnosis 11/21 02:24:00 PM [facility] M17.0 Bilateral primary osteoarthritis of knee BILATERAL PRIMARY OSTEOARTHRITIS OF KNEE Diagnosis 11/22[facility]2019 [facility] Pain in right knee PAIN IN RIGHT KNEE Diagnosis 02:24:00 PM [facility] N95.2 Postmenopausal atrophic vaginitis POSTMENOPAUSAL ATROPHIC VAGINITIS Diagnosis 11/22/2019 01:29:00 PM [facility] Z12.4 Encounter for screening for malignant ne oplasm of cervix ENCOUNTER FOR SCREENING FOR MALIGNANT NEOPLASM OF CERVIX Diagnosis 11/03/2019 09:22: 00 AM [facility] M54.30 [id number] Sciatica, unspecified laterality Problem 11/08/2020 12:00:00 AM ED eCW1 ([facility]) M54.41 [id number] Acute right-sided low back pain with right-sided sciatica Problem 11/08/2020 12:00:00 AM EDT eCW1 ([facility]) E66.9 [id number] Obesity (BMI 30-39.9) Problem 08/31/2020 12: 00:00 AM EDT eCW1 ([facility]) F17.210 [id number] Smoking greater than 30 pack years Proble m 08/31/2020 12:00:00 AM EDT eCW1 ([facility]) Z68.37 [id number] BMI 37.0-37.9, adult Problem 08/31/2020 12:0 0:00 AM EDT eCW1 ([facility]) F33.1 [id number] Moderate episode of recurrent major depre ssive disorder Problem 08/01/2020 12:00:00 AM EDT eCW1 ([facility]) F33.9 [id number] Major depressive dis order, recurrent episode with anxious distress Problem 05/03/2020 12:00:00 AM EST eCW1 ([facility]) M19.90 4806530 Arthritis Problem 11/22/2019 12:00:00 AM ED T eCW1 ([facility]) F33.1 [id number] Major depressive disorder, recurrent, mod erate Problem 11/22/2019 12:00:00 AM EDT eCW1 ([facility]) N81.10 [id number] Female bladder prolapse Problem 11/01/2019 1 2:00:00 AM EDT eCW1 ([facility]) Surgeries/Procedures Procedure Description Date Indications Data Source(s) Colonoscopy Flexible Proximal To Splenic Flexure Diagnostic W/Or 09/07/2020 12:00:00 AM EDT [facility] ([facility] Strapping Foot Or Ankle 07/27/2020 12:00:00 AM EDT [facility] ([facility] RADEX FOOT COMPLETE MINIMUM 3 VIEWS 07/27/2020 12:00:0 0 AM EDT [facility] ([facility] RADEX FOOT COMPLETE MINIMUM 3 VIEWS 07/27/2020 12:00:0 0 AM EDT [facility] ([facility] X-Ray Hip Unilateral With Pelvis 2-3 Views 03/24/2020 12:00:00 AM EST [facility] ([facility] ) RADIOLOGIC EXAMINATION KNEE 1/2 VIEWS 03/24/2020 12:00 :00 AM EST [facility] ([facility] ) ARTHROCENTESIS ASPIR&/INJECTION MAJOR JT/BURSA 020 12:00:00 AM EDT [facility] ([facility] ) Results ID Date Data Source [id number] 09/11/2020 11:02:00 AM EDT [facility] [...] analyzed through the latest version of the [employer] disability aide ddiagnosis system. The patient states that her [...] rce(s) Supporting Document(s) ID Date Data Source [id number] 09/11/2020 10:07:00 AM EDT [facility] DATE OF EXAMINATION: 09/11/2020 9:30 EDT [...] rce(s) Supporting Document(s) ID Date Data Source [id number] 09/12/2020 08:09:00 AM EDT [facility] Name Value Range Interpretation Code Description Data Karolina rce(s) Supporting Document(s) VITAMIN D, 25-HYDROXY 75.4 ng/mL 30.0-100.0 [facility] Vitamin D deficiency has been defined by the [place] [employer] and an Endocrine Society practice guideline as alevel of serum 25-OH vitamin D less than 20 ng/mL (1,2).The Endocrine Society went on to further define vitamin Dinsufficiency as a level between 21 and 29 ng/mL (2).1. IOM ([place]). 2010. Dietary reference intakes for calcium and D. [place]: The National Academies Press.2. Rosaura Cantrell, Del GONZALEZ, et al. Evaluation, treatment, and prevention of vitamin D deficiency: an Endocrine Society clinical practice guideline. JCEM. 2010; 96(7):1911- 30.Performed at: RN - [facility] [place] [id number] Director: Milagros Zaidi MD, Phone: [phone] ID Date Data Source [id number] 09/12/2020 08:07:00 AM EDT [facility] Name Value Range Interpretation Code Description Data Karolina rce(s) Supporting Document(s) Vitamin D, 25-Hydroxy 75.4 ng/mL 30.0-100.0 [facility] Vitamin D deficiency has been defined by the [place] [employer] and an Endocrine Society practice guideline as alevel of serum 25-OH vitamin D less than 20 ng/mL (1,2).The Endocrine Society went on to further define vitamin Dinsufficiency as a level between 21 and 29 ng/mL (2).1. IOM ([place]). 2010. Dietary reference intakes for calcium and D. [place]: The [employer].2. Rosaura Cantrell, Del GONZALEZ, et al. Evaluation, treatment, and prevention of vitamin D deficiency: an Endocrine Society clinical practice guideline. JCEM. 2010; 96(7):1911-30. ID Date Data Source [id number] 09/11/2020 11:14:00 AM EDT [facility] Name Value Range Interpretation Code Description Data Karolina rce(s) Supporting Document(s) CHOLESTEROL 153 mg/dL 0-200 [facility] TRIGLYCERIDES 67 mg/dL 0-150 [facility] LDL CHOLESTEROL 79 mg/dL 0-100 [facility] HDL CHOLESTEROL 61 mg/dL 40-60 H [facility] CHOL/HDL RATIO 2.5 0.0-5.0 [facility] ID Date Data Source [id number] 09/11/2020 11:14:00 AM EDT [facility] Name Value Range Interpretation Code Description Data Karolina rce(s) Supporting Document(s) GLUCOSE 90 mg/dL 74-106 [facility] BLOOD UREA NITROGEN 7 mg/dL 7-18 [facility] ital CREATININE 1.18 mg/dL 0.6-1.0 H [facility] SODIUM 145 mmol/L 136-145 [facility] POTASSIUM 3.9 mmol/L 3.5-5.1 [facility] CHLORIDE 107 mmol/L 98-107 [facility] CO2 28 mmol/L 21-32 [facility] CALCIUM 9.1 mg/dL 8.5-10.1 [facility] ANION GAP 10.0 mmol/L 5-12 [facility] GLOMERULAR FILTRATION RATE 47 mL/min [facility] GFR IS CALCULATED IN mL/min/1.73m2 AYAH L FUNCTION: >90MILDLY DECREASED: 60-89MILDY TO MODERATELY DECREASED: 45-59 MODERATELY TO SEVERELY DECREASED: 30-44SEVERELY DECREASED: 15-29RENAL FAILURE: <15 AST 12 U/L 15-37 [facility] ALT 17 U/L 12-78 [facility] ALKALINE PHOSPHATASE 103 U/L 46-116 [facility] pital TOTAL BILIRUBIN 0.4 mg/dL 0.2-1.0 [facility] TOTAL PROTEIN 6.9 g/dl 6.4-8.2 [facility] ALBUMIN 3.8 gm/dL 3.4-5.0 [facility] ID Date Data Source [id number] 09/11/2020 11:00:00 AM EDT [facility] Name Value Range Interpretation Code Description Data Karolina rce(s) Supporting Document(s) FREE T4 1.2 ng/dL 0.76-1.46 [facility] ID Date Data Source [id number] 09/11/2020 11:00:00 AM T [facility] Name Value Range Interpretation Code Description Data Karolina rce(s) Supporting Document(s) TSH 1.503 uIU/mL 0.360-3.740 [facility] ID Date Data Source [id number] 09/11/2020 10:17:00 AM EDT [facility] l Name Value Range Interpretation Code Description Data Karolina rce(s) Supporting Document(s) WHITE BLOOD COUNT 5.1 K/mm3 4.0-10.0 [facility]LOOD [facility] 4.10 M/mm3 4.00-5.50 [facility] HEMOGLOBIN 12.9 gm/dL 12.0-16.0 [facility] HEMATOCRIT 38.5 % 36.0-48.8 [facility] MEAN CELL VOLUME 93.9 fl 80-96 [facility] MEAN CORPUSCULAR HEMOGLOBIN 31.5 pg 27.0-31.0 H [facility] MEAN CORPUSCULAR HGB CONC 33.5 g/dl 32.0-36.0 [facility] RED CELL DISTRIBUTION WIDTH 12.7 % 10.0-14.5 [facility] PLATELET COUNT 372 K/mm3 172-450 [facility] MEAN PLATELET VOLUME 10.0 fl 9.0-13.0 [facility] pital GRAN % 47.1 % 50-80.0 L [facility] IG% 0.2 % 0.0-0.2 [facility] LYMPH % 39.4 % 25.0-50.0 [facility] MONO % 8.1 % 2.0-10.0 [facility] EOS % 5.0 % 0-5.0 [facility] BASO % 0.2 % 0.0-2.0 [facility] GRAN # 2.4 K/mm3 2.0-8.00 [facility] IG# 0.0 K/mm3 0.0-0.2 [facility] LYMPH # 2.0 K/mm3 1.0-5.0 [facility] MONO # 0.4 K/mm3 0.10-1.20 [facility] EOS # 0.3 K/mm3 0.0-0.5 [facility] BASO # 0.0 K/mm3 0.0-0.2 [facility] ID Date Data Source [id number] 08/10/2020 04:33:00 PM EDT [facility] Patient: JOSELIN MARTINEZ Dominique n Report - [facility].VisitID: [id number] [place] [address] [phone], FRegistradelaware hospital for the chronically ill Date/Time: 08/10/2020 08:42 Weight:87.5 kg (S). Height/Length:60 [...] mg), 2x a day, last dose 08/10/2020.Ipratropium Bledsoe Inhalation 1 unit dose, as needed, last [...] rce(s) Supporting Document(s) ID Date Data Source [id number] 05/19/2020 10:55:00 PM EDT [facility] l LUMBAR SPINE DATE OF EXAMINATION: 021 [...] Value Range Interpretation Code Description Data [facility] rce(s) Supporting Document(s) ID Date Data Source [id number] 05/18/2020 06:39:00 PM EDT [facility] Patient: JOSELIN MARTINEZ Observatio n Report - Physicians/Mid Levels [facility].VisitID: [id number] [place] [address] [phone], FRegistration Date/Time: 05/18/2020 15:40 Weight:81.1 kg (S). Height/Length:62 inches (S). BMI:32.7 PAST HISTORYProblems:Depression.Degenerative Joint Disease.Encephalopathy.Hypercholesterolemia. Additional Surgeries:Bladder Suspension.Brain surgery .Bunion removal.Cholecystectomy.Hysterectomy.Oophorectomy.Tubal Ligation.Tubal ligation- unilateral . Medications:Aspirin Oral (Tablet Chewable 81 mg) 1 tablet, last dose 05/18/2020.Benadryl Allergy Oral, daily at bedtime, last dose 05/17/2020.BusPIRone HCl Oral (Tablet 30 mg), 2x a day, last dose 05/18/2020.Ipratropium Bledsoe Inhalation 1 unit dose, as needed, last [...] rce(s) Supporting Document(s) ID Date Data Source [id number] 02/08/2020 05:58:00 PM [facility] Patient: JOSELIN MARTINEZ Report - Physicians/Mid Levels [facility].VisitID: [id number] [place] [address] [phone], FRegistration Date/Time: 02/08/2020 13:14 Weight:88.4 kg (S). Height/Length:60 inches (S). BMI:38.1 PAST HISTORYProblems:Chronic Venous Insufficiency.COPD - Chronic Obstructive Pulmonary Disease.Arthritis.Anxiety disorder.Hypothyroidism.Hyperlipidemia.Lung Disease.Hypercholesterolemia.Depression.Degenerative Joint Disease.Gastroesophageal Reflux Disease.Encephalopathy. Additional Surgeries:Bladder Suspension.Brain surgery .Bunion removal.Cholecystectomy.Hysterectomy.Oophorectomy.Tubal Ligation.Tubal ligation- unilateral . Medications:Ipratropium Bledsoe Inhalation.Albuterol Sulfate HFA Inhalation.Omeprazole Oral 20 mg, [...] 20 mg daily, Last: this am. Ipratropium Bledsoe Inhalation. Levothyroxine Sodium Oral : 88 mcg daily, Last: this am. Omeprazole Oral : 20 mg daily, Last: today. TraZODone HCl Oral : 100 mg daily, Last: last night, at bedtime. (Electronically signed by Destin Isaacs 02/08/2020 17:53) Name Value Range Interpretation Code Description Data [facility] rce(s) Supporting Document(s) ID Date Data Source [id number] 02/08/2020 03:39:00 PM [facility] l TSYSORDER [id number] Name Value Range Interpretation Code Description Data [facility] rce(s) Supporting Document(s) MAGNESIUM 2.1 mg/dL 1.8-2.4 [facility] ID Date Data Source [id number] 02/08/2020 03:39:00 PM [facility] l TSYSORDER [id number] Name Value Range Interpretation Code Description Data [facility](s) Supporting Document(s) GLUCOSE 96 mg/dL 74-106 [facility] BLOOD UREA NITROGEN 6 mg/dL 7-18 L [facility] ital CREATININE 1.2 mg/dL 0.6-1.0 H [facility] SODIUM 142 mmol/L 136-145 [facility] POTASSIUM 4.1 mmol/L 3.5-5.1 [facility] CHLORIDE 104 mmol/L 98-107 [facility] CO2 31 mmol/L 21-32 [facility] CALCIUM 9.3 mg/dL 8.5-10.1 [facility] ANION GAP 7.0 mmol/L 5-12 [facility] GLOMERULAR FILTRATION RATE 46 mL/min [facility] GFR IS CALCULATED IN mL/min/1.73m2 AYAH L FUNCTION: >90MILDLY DECREASED: 60-89MILDY TO MODERATELY DECREASED: 45-59 MODERATELY TO SEVERELY DECREASED: 30-44SEVERELY DECREASED: 15-29RENAL FAILURE: <15 AST 13 U/L 15-37 [facility] ALT 16 U/L 12-78 [facility] ALKALINE PHOSPHATASE 110 U/L 46-116 [facility] pital TOTAL BILIRUBIN 0.3 mg/dL 0.2-1.0 [facility] TOTAL PROTEIN 7.1 g/dl 6.4-8.2 [facility] ALBUMIN 3.6 gm/dL 3.4-5.0 [facility] ID Date Data Source [id number] 02/08/2020 03:32:00 PM [facility] yash TSYSORDER [id number] Name Value Range Interpretation Code Description Data Karolina rce(s) Supporting Document(s) COVID-19 NEGATIVE NEGATIVE [facility] Negative results should be treated as pr [...] are for the indentification of SARS-CoV-2 RNA. [id number] RNA is generally detectable in respiratorysamples during the actue phase of infection. ID Date Data Source [id number] 02/08/2020 03:30:00 PM [facility] l TSYSORDER [id number] Name Value Range Interpretation Code Description Data Karolina rce(s) Supporting Document(s) MONOSCREEN NEGATIVE NEGATIVE [facility] ID Date Data Source [id number] 02/08/2020 03:28:00 PM [facility] l TSYSORDER [id number] Name Value Range Interpretation Code Description Data Karolina rce(s) Supporting Document(s) WHITE BLOOD COUNT 6.1 K/mm3 4.0-10.0 [facility] al RED BLOOD COUNT 4.08 M/mm3 4.00-5.50 [facility] HEMOGLOBIN 12.6 gm/dL 12.0-16.0 [facility] HEMATOCRIT 38.3 % 36.0-48.8 [facility] MEAN CELL VOLUME 93.9 fl 80-96 [facility] MEAN CORPUSCULAR HEMOGLOBIN 30.9 pg 27.0-31.0 [facility] MEAN CORPUSCULAR HGB CONC 32.9 g/dl 32.0-36.0 [facility] RED CELL DISTRIBUTION WIDTH 13.3 % 10.0-14.5 [facility] PLATELET COUNT 361 K/mm3 172-450 [facility] MEAN PLATELET VOLUME 10.2 fl 9.0-13.0 [facility] pital GRAN % 62.4 % 50-80.0 [facility] IG% 0.0 % 0.0-0.2 [facility] LYMPH % 28.2 % 25.0-50.0 [facility] MONO % 6.4 % 2.0-10.0 [facility] EOS % 2.8 % 0-5.0 [facility] BASO % 0.2 % 0.0-2.0 [facility] GRAN # 3.8 K/mm3 2.0-8.00 [facility] IG# 0.0 K/mm3 0.0-0.2 [facility] LYMPH # 1.7 K/mm3 1.0-5.0 [facility] MONO # 0.4 K/mm3 0.10-1.20 [facility] EOS # 0.2 K/mm3 0.0-0.5 [facility] BASO # 0.0 K/mm3 0.0-0.2 [facility] ID Date Data Source [id number] 02/08/2020 03:05:00 PM EST [facility] Name Value Range Interpretation Code Description Data Karolina rce(s) Supporting Document(s) COVID-19 [facility] This lab was ordered by [facility] and reported by [facility]. ID Date Data Source [id number] 02/08/2020 03:44:00 PM EST [facility] Name Value Range Interpretation Code Description Data Karolina rce(s) Supporting Document(s) FREE T4 1.07 ng/dL 0.76-1.46 [facility] ID Date Data Source [id number] 02/08/2020 03:44:00 PM EST [facility] Name Value Range Interpretation Code Description Data Karolina rce(s) Supporting Document(s) TSH 1.27 uIU/mL 0.36-3.74 [facility] ID Date Data Source [id number] 02/08/2020 03:44:00 PM EST [facility] Name Value Range Interpretation Code Description Data Karolina rce(s) Supporting Document(s) DDIMER 0.57 mg/LFEU 0.19-0.60 [facility] ID Date Data Source [id number] 02/08/2020 03:44:00 PM EST [facility] Name Value Range Interpretation Code Description Data Karolina rce(s) Supporting Document(s) PARTIAL THROMBOPLASTIN TIME 23.0 SECONDS 21.2-27.3 [facility] ID Date Data Source [id number] 02/08/2020 03:44:00 PM EST [facility] Name Value Range Interpretation Code Description Data Karolina rce(s) Supporting Document(s) PROTHROMBIN TIME (PATIENT) 10.2 SECONDS 9.1-11.6 [facility] INR 0.98 0.87-1.06 [facility] ID Date Data Source [id number] 02/08/2020 03:39:00 PM EST [facility] TSYSORDER [id number] Name Value Range Interpretation Code Description Data Karolina rce(s) Supporting Document(s) LIPASE 128 U/L 73-393 [facility] ID Date Data Source [id number] 02/08/2020 03:39:00 PM EST [facility] TSYSORDER [id number] Name Value Range Interpretation Code Description Data Karolina rce(s) Supporting Document(s) TROPONIN I < 0.017 ng/mL 0.0-0.056 [facility] ID Date Data Source [id number] 02/08/2020 02:57:00 PM EST [facility] [...] rce(s) Supporting Document(s) ID Date Data Source [id number] 02/08/2020 03:54:00 PM EST [facility] Name Value Range Interpretation Code Description Data Karolina rce(s) Supporting Document(s) STREP A NEGATIVE NEGATIVE [facility] This is a rapid molecular in vitro diagn ostic test utilizingisothermal nucleic acid amplification technology for thequalitative detection of Group A Streptococcusbacterial nucleic acid.Additional follow up testing using the culture method isrequired if the result is negative and clinical symptomspersist, or in the event of an acute rheumatic feveroutbreak. ID Date Data Source [id number] 02/08/2020 03:54:00 PM EST [facility] Name Value Range Interpretation Code Description Data Karolina rce(s) Supporting Document(s) INFLUENZA A NEGATIVE NEGATIVE [facility] INFLUENZA B NEGATIVE NEGATIVE [facility] This is a rapid molecular in vitro diagn ostic test utilizingan isothermal nucleaic acid amplification technology for thequalitative detection and discrimination of influenza A andB viral RNA. Negative results do not preclude influenzavirus infection and should not be used as the sole basis fordiagnosis, treatment or other patient management decisions. ID Date Data Source [id number] 11/22/2019 02:50:00 PM EDT [facility] DATE OF EXAMINATION: 11/22/2019 14:29 [...] Name Value Range Interpretation Code Description Data [facility] Supporting Document(s) ID Date Data Source [id number] 11/22/2019 02:50:00 PM EDT [facility] l DATE OF EXAMINATION: 11/22/2019 14:29 EDT [...] KNEE COMPLETE 11/22/2019 05:09:40 AM EDT eCW1 ([facility]) Name Value Range Interpretation Code Description Data Karolina rce(s) Supporting Document(s) KNEE COMPLETE eCW1 (Formerly named [facility]) ID Date Data Source PAP REFLEX HPV 11/09/2019 11:09:34 AM EDT [facility]CW1 ([facility] [place] Name Value Range Interpretation Code Description Data Karolina rce(s) Supporting Document(s) Comment REFLEX PAP eCW1 ([facility]) Comment PERFORMED BY: eCW1 (Formerly named [facility]) Comment DIAGNOSIS: eCW1 ([facility]) Comment SPECIMEN ADEQUACY: eCW1 ([facility]) . . eCW1 ([facility]) Comment NOTE: eCW1 ([facility]) ID Date Data Source [id number] 11/03/2019 04:16:00 PM EDT [facility] Specimen Comment: Source.............Cer vix;EndocervixSpecimen Comment: No. of containers..01 ThinPrep Vial Name Value Range Interpretation Code Description Data Karolina rce(s) Supporting Document(s) REFLEX PAP Comment . [facility] The HPV DNA reflex criteria were not met with this specimenresult therefore, no HPV testing was performed.Performed at: [address] [id number] Director: Delmer Rosas MD, Phone: [phone] DIAGNOSIS: Comment . [facility] NEGATIVE FOR INTRAEPITHELIAL LESION OR M ALIGNANCY. SPECIMEN ADEQUACY: Comment . [facility] Satisfactory for evaluation. Endocervic al and/or squamous metaplasticcells (endocervical component) are present. PERFORMED BY: Comment . [facility] Ryann Johnson Network Design Architect (ASCP) . . . [facility] NOTE: Comment . [facility] The Pap smear is a screening test design ed to aid in thedetection of premalignant and malignant conditions of theuterine cervix. It is not a diagnostic procedure andshould not be used as the sole means of detecting cervicalcancer. Both false-positive and false-negative reports dooccur. ID Date Data Source [id number] 11/06/2019 06:05:00 AM EDT [facility] Name Value [...] component) are present.Performed by: 01 Ryann Johnson Network Design Architect ([facility]). 01Note: Note 01 The Pap smear is [...] High <-Panic Low,>-Panic High,A-Abnormal,AA-Critical Abnormal Performed at:[address] [id number] Delmer Rosas MD, ID Date Data Source [id number] 10/30/2019 09:32:00 PM EDT [facility] DATE OF EXAMINATION: 10/30/2019 19:16 [...] Name Value Range Interpretation Code Description Data [facility](s) Supporting Document(s) ID Date Data Source [id number] 10/30/2019 09:31:00 PM EDT [facility] [...] Name Value Range Interpretation Code Description Data [facility] Supporting Document(s) ID Date Data Source [id number] 10/30/2019 08:43:00 PM EDT [facility] Patient: JOSELIN MARTINEZ Observatio n Report - Physicians/Mid Levels [facility].VisitID: [id number] [place] [address] [phone], FRegistration Date/Time: 10/30/2019 19:01 Weight:90.7 kg (S). [...] rce(s) Supporting Document(s) ID Date Data Source [id number] 10/30/2019 08:30:00 PM EDT [facility] l TSYSORDER [id number] Name Value Range Interpretation Code Description Data Karolina rce(s) Supporting Document(s) URINE RBC 0-2 /hpf 0-3 [facility] URINE EPITHELIAL CELLS 3+ /hpf 0 [facility] ospital URINE BACTERIA 1+ NONE SEEN [facility] ID Date Data Source [id number] 10/30/2019 08:24:00 PM EDT [facility] ital TSYSORDER [id number] Name Value Range Interpretation Code Description Data Karolina rce(s) Supporting Document(s) URINE COLOR. YELLOW [facility] URINE APPEARANCE CLEAR [facility] l SPECIFIC GRAVITY,URINE <= 1.005 1.001-1.035 [facility] URINE LEUKOCYTE ESTERASE NEGATIVE NEGATIVE [facility] URINE NITRATE NEGATIVE NEGATIVE [facility] PH,URINE 5.5 5.0-9.0 [facility] URINE PROTEIN NEGATIVE mg/dL NEGATIVE [facility] URINE GLUCOSE (UA) NEGATIVE mg/dL NEGATIVE [facility] URINE KETONE NEGATIVE mg/dL NEGATIVE [facility] UROBILINOGEN NORMAL(0.2-1) mg/dL 0-1 R [facility] URINE BILIRUBIN NEGATIVE NEGATIVE [facility] URINE BLOOD TRACE NEGATIVE H [facility] Procedure Social History Code Duration Value Status Description Data Source(s ) Smoking 11/08/2020 12:00:00 AM EDT Former Smoker completed Former Smoker eCW1 ([facility]) Smoking 11/08/2020 12:00:00 AM EDT Former Smoker completed Former Smoker eCW1 ([facility]) Smoking 11/08/2020 12:00:00 AM EDT Former Smoker completed Former Smoker eCW1 ([facility]) Smoking 08/31/2020 12:00:00 AM EDT Former Smoker completed Former Smoker eCW1 ([facility]) Smoking 08/31/2020 12:00:00 AM EDT Former Smoker completed Former Smoker eCW1 ([facility]) Smoking 07/03/2020 12:00:00 AM EDT Former Smoker completed Former Smoker eCW1 ([facility]) Smoking 07/03/2020 12:00:00 AM EDT Former Smoker completed Former Smoker eCW1 ([facility]) Smoking 07/03/2020 12:00:00 AM EDT Former Smoker completed Former Smoker eCW1 ([facility]) Smoking 05/19/2020 12:00:00 AM EDT Never Smoker completed Never S moker eCW1 ([facility]) Smoking 05/19/2020 12:00:00 AM EDT Never Smoker completed Never S moker eCW1 ([facility]) Smoking 05/19/2020 12:00:00 AM EDT Never Smoker completed Never S moker eCW1 ([facility]) Smoking 02/09/2020 12:00:00 AM EST Never Smoker completed Never S moker eCW1 ([facility]) Smoking 12/06/2019 12:00:00 AM EDT Never Smoker completed Never S moker eCW1 ([facility]) Smoking 12/06/2019 12:00:00 AM EDT Never Smoker completed Never S moker eCW1 ([facility]) Smoking 12/06/2019 12:00:00 AM EDT Never Smoker completed Never S moker eCW1 ([facility]) Smoking 12/06/2019 12:00:00 AM EDT Never Smoker completed Never S moker eCW1 ([facility]) Smoking 11/22/2019 12:00:00 AM EDT Never Smoker completed Never S moker eCW1 ([facility]) Smoking 11/22/2019 12:00:00 AM EDT Never Smoker completed Never S moker eCW1 ([facility]) Smoking 11/22/2019 12:00:00 AM EDT Never Smoker completed Never S moker eCW1 ([facility]) Smoking 11/01/2019 12:00:00 AM EDT Never Smoker completed Never S halleyker eCW1 ([facility]) Vital Signs ID Date Data Source UNK Name Value Range Interpretation Code Description Data Source(s) Body height 60.0 [in_i] 60.0 [in_i] eCW1 ([facility]) Body weight 187.8 [lb_av] 187.8 [lb_av] eCW1 ([facility]) Body mass index (BMI) [Ratio] 36.67 kg/m2 36.67 kg/m2 eCW1 ([facility]) Heart rate 64 /min 64 /min eCW1 ([facility]) Respiratory rate 16 /min 16 /min eCW1 ([facility]) Oxygen saturation in Arterial blood by Pulse oximetry 96 % 96 % eCW1 ([facility]) Body height 60.0 [in_i] 60.0 [in_i] eCW1 ([facility]) Body weight 187.8 [lb_av] 187.8 [lb_av] eCW1 ([facility]) Body mass index (BMI) [Ratio] 36.67 kg/m2 36.67 kg/m2 eCW1 ([facility]) Heart rate 64 /min 64 /min eCW1 ([facility]) Respiratory rate 16 /min 16 /min eCW1 ([facility]) Oxygen saturation in Arterial blood by Pulse oximetry 96 % 96 % eCW1 ([facility]) Body height 60.0 [in_i] 60.0 [in_i] eCW1 ([facility]) Body weight 190 [lb_av] 190 [lb_av] eCW1 ([facility]) Body mass index (BMI) [Ratio] 37.10 kg/m2 37.10 kg/m2 eCW1 ([facility]) Body temperature 98.4 [degF] 98.4 [degF] eCW1 ( [facility]) Heart rate 59 /min 59 /min eCW1 ([facility]) Respiratory rate 16 /min 16 /min eCW1 ([facility]) Oxygen saturation in Arterial blood by Pulse oximetry 96 % 96 % eCW1 ([facility]) Body height 62 [in_i] 62 [in_i] MEDENT [...] Body height 60.0 [in_i] 60.0 [in_i] eCW1 ([facility]) Body weight 199.2 [lb_av] 199.2 [lb_av] eCW1 ([facility]) Body mass index (BMI) [Ratio] 38.90 kg/m2 38.90 kg/m2 eCW1 ([facility]) Body temperature 97.6 [degF] 97.6 [degF] eCW1 ( [facility]) Heart rate 62 /min 62 /min eCW1 ([facility]) Respiratory rate 16 /min 16 /min [facility]CW[facility] [facility] [place] Oxygen saturation in Arterial blood by Pulse oximetry 97 % 97 % eCW1 ([facility]) Diastolic blood pressure 84 mm[Hg] 84 mm[Hg] MEDENT ([facility], ) Body weight 199.00 [lb_av] 199.00 [lb_av] MEDEN T ([facility]) Body mass index (BMI) [Ratio] 36.4 kg/m2 36.4 k g/m2 MEDENT ([facility]) [place] body weight 110 [lb_av] 110 [lb_av] MEDEN T ([facility]) Body weight 90.266 kg 90.266 kg MEDENT ([facility]) Body surface area Derived from formula 1.91 m2 1.91 [facility] Systolic blood pressure 112 mm[Hg] 112 mm[Hg] M EDENT ([facility]) Body height 62 [in_i] 62 [in_i] [facility] ([facility]) 5'2" Heart rate 76 /min 76 /min eCW1 ([facility]) Respiratory rate 18 /min 18 /min eCW1 ([facility] [place]) Oxygen saturation in Arterial blood by Pulse oximetry 98 % 98 % eCW1 ([facility]) Body height 60.0 [in_i] 60.0 [in_i] eCW1 ([facility]) Body weight 201.2 [lb_av] 201.2 [lb_av] eCW1 ([facility]) Body mass index (BMI) [Ratio] 39.29 kg/m2 39.29 kg/m2 eCW1 ([facility]) Body temperature 97.6 [degF] 97.6 [degF] eCW1 ( [facility]) Body temperature 96.8 [degF] 96.8 [degF] MEDENT ([facility]) Body height 60.0 [in_i] 60.0 [in_i] eCW1 ([facility]) Body weight 195 [lb_av] 195 [lb_av] eCW1 ([facility]) Body mass index (BMI) [Ratio] 38.08 kg/m2 38.08 kg/m2 eCW1 ([facility]) Body temperature 97.1 [degF] 97.1 [degF] eCW1 ( [facility]) Heart rate 64 /min 64 /min eCW1 ([facility]) Respiratory rate 16 /min 16 /min eCW1 ([facility] [place]) Oxygen saturation in Arterial blood by Pulse oximetry 98 % 98 % eCW1 ([facility]) Body height 60.0 [in_i] 60.0 [in_i] eCW1 ([facility]) Body temperature 97.8 [degF] 97.8 [degF] eCW1 ( [facility]) Body temperature 96.8 [degF] 96.8 [degF] MEDENT ([facility]) Body height 70 [in_i] 70 [in_i] MEDENT ([facility]) 5'10" Body weight 198.50 [lb_av] 198.50 [lb_av] MEDEN T ([facility]) Body mass index (BMI) [Ratio] 28.5 kg/m2 28.5 k g/m2 MEDENT ([facility] ) Body height 60.0 [in_i] 60.0 [in_i] eCW1 ([facility]) Body weight 200.4 [lb_av] 200.4 [lb_av] eCW1 ([facility]) Body mass index (BMI) [Ratio] 39.13 kg/m2 39.13 kg/m2 eCW1 ([facility]) Heart rate 78 /min 78 /min eCW1 ([facility]) Respiratory rate 18 /min 18 /min eCW1 ([facility] [place]) Oxygen saturation in Arterial blood by Pulse oximetry 96 % 96 % eCW1 ([facility]) Body height 60.0 [in_i] 60.0 [in_i] eCW1 ([facility]) Body weight 202.4 [lb_av] 202.4 [lb_av] eCW1 ([facility]) Body mass index (BMI) [Ratio] 39.52 kg/m2 39.52 kg/m2 eCW1 ([facility]) Body temperature 98.4 [degF] 98.4 [degF] eCW1 ( [facility]) Heart rate 76 /min 76 /min eCW1 ([facility]) Respiratory rate 18 /min 18 /min eCW1 ([facility] [place]) Oxygen saturation in Arterial blood by Pulse oximetry 96 % 96 % eCW1 ([facility]) Body height 60.0 [in_i] 60.0 [in_i] eCW1 ([facility]) Body weight 204.6 [lb_av] 204.6 [lb_av] eCW1 ([facility]) Body mass index (BMI) [Ratio] 39.95 kg/m2 39.95 kg/m2 eCW1 ([facility]) Heart rate 66 /min 66 /min eCW1 ([facility]) Respiratory rate 18 /min 18 /min eCW1 ([facility] [place]) Oxygen saturation in Arterial blood by Pulse oximetry 95 % 95 % eCW1 ([facility]) Body height 60.0 [in_i] 60.0 [in_i] eCW1 ([facility]) Body mass index (BMI) [Ratio] 38.67 kg/m2 38.67 kg/m2 eCW1 ([facility]) Body weight 198 [lb_av] 198 [lb_av] eCW1 ([facility]) Body temperature 98 [degF] 98 [degF] eCW1 ([facility] [place]) Patient Treatment Plan of Care Planned Activity Planned Date Details Description Data Source (s) Prednisone 20 MG Oral Tablet 11/08/2020 12:00:00 AM EDT eCW1 ([facility]) physical therapy eval and tx - 11/08/2020 12:00:00 AM EDT eCW1 ([facility]) tizanidine 2 MG Oral Tablet 11/08/2020 12:00:00 AM EDT eCW1 ([facility]) Naproxen 250 MG Oral Tablet 07/03/2020 12:00:00 AM EDT eCW1 ([facility]) Naproxen 250 MG Oral Tablet 07/03/2020 12:00:00 AM EDT eCW1 ([facility]) Naproxen 250 MG Oral Tablet 07/03/2020 12:00:00 AM EDT eCW1 ([facility]) physical therapy eval and tx - 05/19/2020 12:00:00 AM EDT eCW1 ([facility]) physical therapy eval and tx - 05/19/2020 12:00:00 AM EDT eCW1 ([facility]) physical therapy eval and tx - 05/19/2020 12:00:00 AM EDT eCW1 ([facility]) Fluoxetine 60 MG Oral Tablet 05/03/2020 12:00:00 AM EST eCW1 ([facility]) Fluoxetine 60 MG Oral Tablet 05/03/2020 12:00:00 AM EST eCW1 ([facility]) Fluoxetine 60 MG Oral Tablet 05/03/2020 12:00:00 AM EST eCW1 ([facility]) Fluoxetine 60 MG Oral Tablet 05/03/2020 12:00:00 AM EST eCW1 ([facility]) Fluoxetine 60 MG Oral Tablet 05/03/2020 12:00:00 AM EST eCW1 ([facility]) Fluoxetine 60 MG Oral Tablet 05/03/2020 12:00:00 AM EST eCW1 ([facility]) Wellbutrin SR 100 MG 11/22/2019 12:00:00 AM EDT eCW1 ([facility]) Wellbutrin SR 100 MG 11/22/2019 12:00:00 AM EDT eCW1 ([facility]) Wellbutrin SR 100 MG 11/22/2019 12:00:00 AM EDT eCW1 ([facility])
--- NOTE | 2020-12-26 20:33 | REPVR ---
PROCEDURE INFORMATION: Exam: MR Lumbar Spine Without Contrast Exam date and time: 12/26/2020 7:25 PM Age: 60 years old Clinical indication: Other: Saddle anesthesia TECHNIQUE: Imaging protocol: Multiplanar magnetic resonance images of the lumbar spine without intravenous contrast. COMPARISON: MRI HIP W/O FOL WITH CONTRAST RIGHT 04/10/2017 8:59 AM FINDINGS: Vertebral body height and AP alignment is preserved. There is disc desiccation. Negative for discitis/osteomyelitis. Conus medullaris terminates at L1. No epidural fluid collection. L1-L2: Mild disc bulge with mild bilateral facet joint arthropathy. No significant central or foraminal stenosis. L2-L3: Mild disc bulge with [id number] facet joint arthropathy and posterior laxity of ligamentum flavum. There is borderline central canal stenosis without significant foraminal stenosis. L3-L4: [id number] disc bulge with bilateral facet joint arthropathy and posterior laxity of ligamentum flavum. There is borderline central canal stenosis and mild right foraminal stenosis. L4-L5: Minimal disc bulge with bilateral facet joint arthropathy. No significant central canal stenosis. Mild right foraminal stenosis. L5-S1: No central or foraminal stenosis. IMPRESSION: 1. No acute abnormality involving the lumbar spine. 2. Borderline central canal stenosis at L2-L3 and L3-L4. No high-grade central canal stenosis throughout. Electronically signed by: Jasvir Becerril On 12/26/2020 20:32:32 PM
[2020-12-26] MEDS ORDERED: KETOROLAC TROMETHAMINE 10 MG TAB PO ONE (20:50)
[2020-12-26] MEDS ORDERED: CYCL5TAB PO (20:52)
[2020-12-26] MEDS ORDERED: GABA-282 PO (20:56)
[2020-12-26] MEDS ORDERED: NAPR-837 PO (20:56)
[2020-12-26 21:06] VITALS: BP 138/97
== END 2020-12-26 21:14 | disposition home or self-care (01) ==
LOC: M ED 16:14
DX: M48.061 Spinal stenosis, lumbar region without neurogenic claudication (principal); M51.26 Other intervertebral disc displacement, lumbar region; M46.96 Unspecified inflammatory spondylopathy, lumbar region; E78.5 Hyperlipidemia, unspecified; K21.9 Gastro-esophageal reflux disease without esophagitis; E03.9 Hypothyroidism, unspecified; G47.33 Obstructive sleep apnea (adult) (pediatric); Z91.030 Bee allergy status; Z79.899 Other long term (current) drug therapy

== ENCOUNTER → 2022-08-27 | Outpatient (REF) | payer BC ==
[~2022-08-27] MED LIST changes: +BENA25CA4 PO; +CYCL5TAB PO; +GABA-282 PO; +NAPR-837 PO; -OMEP10CA78; +OMEP1CAP71
[2022-08-27 15:00] LABS: AMORPHOUS SEDIMENT SMALL (NEGATIVE); APPEARANCE, URINE TURBID (CLEAR); BACTERIA, URINE AUTO NEGATIVE (NEGATIVE); BILIRUBIN, URINE AUTO NEGATIVE (NEGATIVE); BLOOD, URINE BLOOD 2+ (NEGATIVE); CALCIUM OXALATE CRYSTALS LARGE; COLOR, URINE AMBER (YELLOW); GLUCOSE, URINE (UA) AUTO NEGATIVE (NEGATIVE); KETONE, URINE AUTO NEGATIVE (NEGATIVE); LEUKOCYTE ESTERASE, URINE AUTO TRACE (NEGATIVE); MUCUS, URINE SMALL (NEGATIVE); NITRITE, URINE AUTO NEGATIVE (NEGATIVE); PROTEIN, URINE AUTO NEGATIVE (NEGATIVE); RBC, URINE AUTO 1 /HPF (0-3); SPECIFIC GRAVITY URINE AUTO 1.019 (1.002-1.035); SQUAMOUS EPITHELIAL CELL UR AU 11 /HPF (0-6); UROBILINOGEN, URINE AUTO 0.2 mg/dL (0.0-2.0); WBC, URINE AUTO 1 /HPF (0-3)
== END ==
LOC: M SMT 13:43
PROVIDERS: ATTEND Specialist
DX: N39.0 Urinary tract infection, site not specified (principal)